=== PATIENT | female | born 1985 | race Caucasian/White ===

== ENCOUNTER 2023-08-25 12:13 | Outpatient (REF) | payer BC, SELFPAY ==
[2023-08-25 12:57] LABS: SARS-CoV-2 Ag NEGATIVE (NEGATIVE)
[2023-08-25 16:09] LABS: SARS-CoV-2 NAA DETECTED (NOT DETECTE)
== END 2023-08-25 12:14 | disposition home or self-care (01) ==
LOC: LAB 12:13
PROVIDERS: PCP Nurse Practitioner Family; Visit Provider Family Medicine
DX: J21.9 Acute bronchiolitis, unspecified (principal)
CPT/HCPCS: 87635; 87811

== ENCOUNTER 2023-09-22 15:02 | Outpatient (OUT) | payer BC, SELFPAY ==
--- NOTE | 2023-09-22 | US_ITS ---
Patient Name: SRINIVAS DAY MR#: [id number] : 1985 Exam Date: 09/22/2023 Ordering Doctor: ORLIN ROJAS CNP RADIOLOGY REPORT PROCEDURE: MM TOMOSYNTHESIS DIAGNOSTIC BI, 09/22/2023, 15:12 US BREAST BI LIMITED, 09/22/2023, 15:40 COMPARISON: None. INDICATIONS: breast lump N63.0 Calculator Name NCI Breast Cancer Risk Assessment Tool 5 Year Breast Cancer Risk 1.00% Lifetime Breast Cancer Risk 18.40% Personal Breast Cancer No Personal Ovarian Cancer No Treatments None Family Cancers Mother with breast cancer at age 59; Mother with lung cancer at age 61. LOCATION: [facility] BREAST COMPOSITION: Scattered areas fibroglandular density. FINDINGS: DIAGNOSTIC CATEGORY 4--SUSPICIOUS FOR MALIGNANCY. FINDING DOES NOT EXHIBIT CLASSIC FINDINGS OF BREAST CANCER: This exam includes additional mammographic views for implant evaluation and shows no visible implant abnormality. RIGHT BREAST: No significant suspicious finding. No mammographic or ultrasound abnormality to correspond to patient's palpable mass 12 o'clock position, mid breast. LEFT BREAST: No significant suspicious finding. No mammographic abnormality to correspond to the patient's palpable abnormality upper inner quadrant, mid breast. Ultrasound demonstrates at the 10 o'clock position adjacent to the implant capsule an oval well-circumscribed vascular heterogeneous mass measuring 0.8 x 0.3 x 0.8 cm. This lesion is indeterminate. Proximity to the implant precludes a core biopsy. Follow-up MRI is recommended, alternatively fine needle aspiration could be performed. RECOMMENDATIONS: BREAST MRI: BILATERAL BREASTS OR ULTRASOUND-GUIDED FINE NEEDLE ASPIRATION: LEFT BREAST PLEASE NOTE: A NORMAL MAMMOGRAM DOES NOT EXCLUDE THE POSSIBILITY OF BREAST CANCER. A CLINICALLY SUSPICIOUS PALPABLE LUMP SHOULD BE BIOPSIED. Dictated by: Inocencio Marie MD on 09/22/2023 at 16:05 Approved by: Inocencio Marie MD on 09/22/2023 at 16:09
--- NOTE | 2023-09-22 15:05 | MM_ITS ---
Patient Name: SRINIVAS DAY MR#: [id number] : 1985 Exam Date: 09/22/2023 Ordering Doctor: ORLIN ROJAS CNP RADIOLOGY REPORT PROCEDURE: MM TOMOSYNTHESIS DIAGNOSTIC BI, 09/22/2023, 15:12 US BREAST BI LIMITED, 09/22/2023, 15:40 COMPARISON: None. INDICATIONS: breast lump N63.0 Calculator Name NCI Breast Cancer Risk Assessment Tool 5 Year Breast Cancer Risk 1.00% Lifetime Breast Cancer Risk 18.40% Personal Breast Cancer No Personal Ovarian Cancer No Treatments None Family Cancers Mother with breast cancer at age 59; Mother with lung cancer at age 61. LOCATION: [facility] BREAST COMPOSITION: Scattered areas fibroglandular density. FINDINGS: DIAGNOSTIC CATEGORY 4--SUSPICIOUS FOR MALIGNANCY. FINDING DOES NOT EXHIBIT CLASSIC FINDINGS OF BREAST CANCER: This exam includes additional mammographic views for implant evaluation and shows no visible implant abnormality. RIGHT BREAST: No significant suspicious finding. No mammographic or ultrasound abnormality to correspond to patient's palpable mass 12 o'clock position, mid breast. LEFT BREAST: No significant suspicious finding. No mammographic abnormality to correspond to the patient's palpable abnormality upper inner quadrant, mid breast. Ultrasound demonstrates at the 10 o'clock position adjacent to the implant capsule an oval well-circumscribed vascular heterogeneous mass measuring 0.8 x 0.3 x 0.8 cm. This lesion is indeterminate. Proximity to the implant precludes a core biopsy. Follow-up MRI is recommended, alternatively fine needle aspiration could be performed. RECOMMENDATIONS: BREAST MRI: BILATERAL BREASTS OR ULTRASOUND-GUIDED FINE NEEDLE ASPIRATION: LEFT BREAST PLEASE NOTE: A NORMAL MAMMOGRAM DOES NOT EXCLUDE THE POSSIBILITY OF BREAST CANCER. A CLINICALLY SUSPICIOUS PALPABLE LUMP SHOULD BE BIOPSIED. Dictated by: Inocencio Marie MD on 09/22/2023 at 16:05 Approved by: Inocencio Marie MD on 09/22/2023 at 16:09
== END 2023-09-22 15:03 | disposition home or self-care (01) ==
LOC: MAMMO 15:02
PROVIDERS: PCP Nurse Practitioner Family; Visit Provider Nurse Practitioner Family
DX: N63.15 Unspecified lump in the right breast, overlapping quadrants (principal); N63.22 Unspecified lump in the left breast, upper inner quadrant; Z80.3 Family history of malignant neoplasm of breast; Z80.1 Family history of malignant neoplasm of trachea, bronchus and lung
CPT/HCPCS: 76642; 77066; G0279

== ENCOUNTER 2023-09-28 07:28 | Day surgery (SDC) | payer BC, SELFPAY ==
--- OUTSIDE RECORDS SUMMARY | 2023-09-28 07:31 | XMS_ITS | CCD ---
Author Name Unknown Address [address] [place] [address] Organization [facility] Care Team Providers Care Communications Station Manager Name Role Phone Waldrop, Juan R. Unavailable Unavailable Waldrop, Juan R. Unavailable Unavailable Waldrop, Juan R. Unavailable Unavailable NONE, XXXX Unavailable Unavailable Waldrop, Juan R. Unavailable Unavailable Waldrop, Juan R. Unavailable Unavailable Waldrop, Juan R. Unavailable Unavailable NONE, XXXX Unavailable Unavailable Waldrop, Juan R. Unavailable Unavailable Waldrop, Juan R. Unavailable Unavailable Waldrop, Juan R. Unavailable Unavailable NONE, XXXX Unavailable Unavailable Doreen Booker Unavailable Dawood Diaz Unavailable RITU ., DR GANNON Attending Unavailable HOY ., DR GANNON Admitting Unavailable HOY ., DR GANNON Consulting Unavailable BOB, ORLIN Primary Care Unavailable BOB, ORLIN Primary Care Unavailable KARASIK ., DR MOTA Admitting Unavailabl e KARASIK ., DR MOTA Consulting Unavailabl e KARASIK ., DR MOTA Attending Unavailabl e BOB, ORLIN Admitting Unavailable BOB, ORLIN Primary Care Unavailable BOB ORLIN Consulting Unavailable ORLIN ROJAS Attending Unavailable COLIN HDEZ Consulting Unavailable BOB ORLIN Attending Unavailable BOB, ORLIN Admitting Unavailable BOB, ORLIN Primary Care Unavailable BOB, ORLIN Consulting Unavailable Allergies Allergy Classification Reported Allergen(s) Allergy Type Date of Onset Reaction(s) Facility (1 source) ketamine; Translations: [ketamine] Drug Allergy [facility] Repository (1 source) Compazine Spansule; Translations: [Compazine Spansule] Propensity to adverse reactions (disorder) [facility] Repository (3 sources) Prochlorperazin e; Translations: [Compazine] Drug Allergy she has anger and axiety. [facility] Medications Current Medications Medication Drug Class(es) Dates Sig (Normalized) Sig (Original) amoxicillin 875 mg oral tablet (1 source) Penicillin-class Antibacterial Start: 09-11-20 22 take 1 tablet by mouth every twelve hours Amoxicillin 875 MG 1 tablet Orally every 12 hrs for 10 days Aug, Active Calcium + D 500-1000-40 MG-UNT-MCG (1 source) take 500-1000 tablets by mouth twice daily ibuprofen 600 mg oral tablet (1 source) Nonsteroidal Anti-inflammatory Drug take 1 tablet by mouth three times daily at mealtime as needed Ibuprofen 600 MG 1 tablet with food or milk as needed Orally Three times a day Active 1 ml medroxyPROGESTERone acetate 150 mg/ml prefilled syringe (1 source) Progestin Depo-Provera 150 MG/ML 1 mL Intramuscular Active methylPREDNISolone 4 mg oral tablet (1 source) Corticosteroid Start: 09-11-20 methylPREDNISolone 4 MG as directed Orally Once a day for 6 days Aug, Active SUMAtriptan 100 mg oral tablet (1 source) Serotonin-1b and Serotonin-1d Receptor Agonist take 1 tablet by mouth every two hours as needed, then take 1 tablet by mouth twice daily as needed Problems Active Problems Problem Classification Problem Date Documented Date Episodic/Chronic Chronic kidney disease (4 sources) Chronic kidney disease stage 3; Translations: [Chronic kidney disease, stage 3 unspecified] Chronic Immunizations and screening for infectious disease (2 sources) Contact with and (suspected) exposure to other viral communicable diseases; Translations: [Encounter for screening for human papillomavirus (HPV)] Onset: 01-13-2023 Episodic Other screening for suspected conditions (not mental disorders or infectious disease) (8 sources) Encounter for screening for malignant neoplasm of cervix; Translations: [Abnormal results of kidney function studies] Onset: 02-01-2022 Episodic Other upper respiratory infections (2 sources) Acute pharyngitis, unspecified; Translations: [Acute laryngitis] Episodic Otitis media and related conditions (1 source) Otitis media, unspecified, bilateral Episodic Past or Other Problems Problem Classification Problem Date Documented Da te Episodic/Chronic Cancer of kidney and renal pelvis (4 sources) Personal history of other malignant neoplasm of kidney; Translations: [PERS HX OTH MALIG NEOPLASM KIDNEY] Onset: 02-13-2022 Episodic Results Test Name Value Interpretation Reference Range Facility PAP ACOG PANEL 2: 30 to 65on 01-17-[address] [facility] Comment on above: Result Comment: Performed at: [facility] Performed By: #### [id number] #### [facility] [address] [place] [address] Dr. Debo Ruggiero Age Gdln ACOG Testing 30-[address] [facility] Comment on above: Performed By: #### [id number] #### [facility] [address] [address] [address] Debo Ruggiero DIAGNOSIS: Comment Normal [facility] Comment on above: Result Comment: NEGATIVE FOR INTRAEPITHE LIAL LESION OR MALIGNANCY. Performed at: [facility] Performed By: #### [id number] #### [facility] [address] [place] [address] Dr. Debo Ruggiero HPV Aptima Negative Normal Negative [facility] Comment on above: Result Comment: This nucleic acid amplif ication test detects fourteen high-risk HPV types (16,18,31,33,35,39,45,51,52,56,58,59,66,68) without differentiation. Performed at: =G Performed By: #### [id number] #### [facility] [address] [place] [address] Dr. Debo Ruggiero HPV Genotype Reflex Comment Normal [facility] Comment on above: Result Comment: Criteria not met, HPV Ge notype not performed. Performed at: [facility] Performed By: #### [id number] #### [facility] [address] [place] [address] Dr. Debo Ruggiero Methodology: Comment Normal [facility] Comment on above: Result Comment: This liquid based ThinPr ep(R) pap test was screened with the use of an image guided system. Performed at: [facility] Performed By: #### [id number] #### [facility] [address] [place] [address] Dr. Debo Ruggiero Note: Comment Normal [facility] Comment on above: Result Comment: The Pap smear is a scree patel test designed to aid in the detection of premalignant and malignant conditions of the uterine cervix. It is not a diagnostic procedure and should not be used as the sole means of detecting cervical cancer. Both false-positive and false-negative reports do occur. . Performed at: [facility] Performed By: #### [id number] #### [facility] [address] [place] [address] Dr. Debo Ruggiero Performed by: Comment Normal [facility] Comment on above: Result Comment: Sita Lemus, Cytotec hnologist (ASCP) Performed at: [facility] Performed By: #### [id number] #### [facility] [address] [place] [address] Dr. Debo Ruggiero Specimen adequacy: Comment [facility] Comment on above: Result Comment: Satisfactory for evaluat ion. No endocervical component is identified. Performed at: [facility] Performed By: #### [id number] #### [facility] [address] [place] [address] Dr. Debo Ruggiero COVID/FLU/RSV RT-PCRon 09-11 SARS-CoV-2 (COVID-19) RNA CAMILA+probe Ql (Unsp spec) Negative [facility] [place] Other COVID/FLU/RSV RT-PCR Negative [facility] [place] Other Quick Strepon 09-11-2022 S. pyogenes Org specific cx Ql (Throat) Negative [facility] [place] Other [facility] Strep [facility] [place] Other US KIDNEYS BLADDERon 022 US KIDNEYS BLADDER Ultrasound kidneys, bilateral HISTORY: History of malignant neoplasm of kidney COMPARISON: CT 03/25/2020 TECHNIQUE: Transabdominal ultrasound imaging of both kidneys was performed. FINDINGS: Both kidneys demonstrate normal echotexture and echogenicity. The right kidney measures 8.0 x 5.1 x 4.2 cm. There is no hydronephrosis of right kidney. The left kidney measures 10.3 x 5.2 x 4.9 cm. There is an anechoic structure exophytic at the lower pole measuring 1.2 x 0.9 x 0.8 cm compatible with a small cyst. No hydronephrosis of left kidney. The bladder is incompletely distended. Prevoid bladder volume is 108 cc. Bilateral ureteral jets are seen in bladder lumen. Postvoid volume is 10 cc. IMPRESSION: 1. Right kidney is measuring smaller than the left, although uncertain whether this is a true finding or due to angle of the ultrasound probe during imaging. No hydronephrosis on either side. 2. 1.2 cm exophytic left lower pole cyst. 3. Post void bladder volume of 10 cc, which correlates with a 9% postvoid bladder residual. No focal bladder abnormality with bilateral ureteral jets seen in bladder lumen. Electronically authenticated by: COLIN HDEZ Date: 2022-02-14 21:18 Normal [facility] PROF 14(COMP METB)on 022 Albumin [Mass/Vol] 4.0 g/dL Normal 3.4-5.0 [facility] Comment on above: Performed By: #### CMP #### [facility] [address] [place] [address] Dr. Debo Ruggiero Albumin/Globuli n [Mass ratio] 1.1 {ratio} Normal [facility] Comment on above: Performed By: #### CMP #### [facility] [address] [place] [address] Dr. Debo Ruggiero ALP [Catalytic activity/Vol] 65 U/L Normal 46-116 [facility] Comment on above: Performed By: #### CMP #### [facility] [address] [place] [address] Dr. Debo Ruggiero ALT [Catalytic activity/Vol] 19 U/L Normal 14-59 [facility] Comment on above: Performed By: #### CMP #### [facility] [address] [place] [address] Dr. Debo Ruggiero Anion gap [Moles/Vol] 12.6 mmol/L Normal [facility] Comment on above: Performed By: #### CMP #### [facility] [address] [place] [address] Dr. Debo Ruggiero AST [Catalytic activity/Vol] 15 U/L Normal 15-37 [facility] Comment on above: Performed By: #### CMP #### [facility] [address] [place] [address] Dr. Debo Ruggiero Bilirubin [Mass/Vol] 0.6 mg/dL Normal 0.2-1.[address] [facility] Comment on above: Performed By: #### CMP #### [facility] [address] [address] [address] Debo Ruggiero Calcium [Mass/Vol] 9.2 mg/dL Normal 8.5-10.[address] [facility] Comment on above: Performed By: #### CMP #### [facility] [address] [address] [address] Debo Ruggiero Chloride [Moles/Vol] 103 mmol/L Normal 98-107 [facility] Comment on above: Performed By: #### CMP #### [facility] [address] [address] [address] Debo Ruggiero CO2 [Moles/Vol] 29.1 mmol/L Normal 21.0-32.0 [facility] Comment on above: Performed By: #### CMP #### [facility] [address] [place] [address] Dr. Debo Ruggiero Creatinine [Mass/Vol] 1.18 mg/dL Critically high 0.55-1.[address] [facility] Comment on above: Performed By: #### CMP #### [facility] [address] [place] [address] Dr. Debo Ruggiero EGFR-AF CENTRAL AFRICAN >60 Normal >=60 [facility] Comment on above: Performed By: #### CMP #### [facility] [address] [place] [address] Dr. Debo Ruggiero EGFR-NON AF CENTRAL AFRICAN 52 mL/min/1.73m2 Critically low >=60 [facility] Comment on above: Performed By: #### CMP #### [facility] [address] [address] [address] Debo Ruggiero Globulin (S) [Mass/Vol] 3.8 g/dL Normal [facility] Comment on above: Performed By: #### CMP #### [facility] [address] [address] [address] Debo Ruggiero Glucose [Mass/Vol] 81 mg/dL Normal 74-106 [facility] Comment on above: Performed By: #### CMP #### [facility] [address] [address] [address] Debo Ruggiero Potassium [Moles/Vol] 4.7 mmol/L Normal 3.5-5.1 [facility] Comment on above: Performed By: #### CMP #### [facility] [address] [address] [address] Debo Ruggiero Protein [Mass/Vol] 7.8 g/dL Normal 6.4-8.2 [facility] Comment on above: Performed By: #### CMP #### [facility] [address] [address] [address] Debo Ruggiero Sodium [Moles/Vol] 140 mmol/L Normal 136-[address] [facility] Comment on above: Performed By: #### CMP #### [facility] [address] [address] [address] Debo Ruggiero Urea nitrogen [Mass/Vol] 19.0 mg/dL Critically high 7.0-18.[address] [facility] Comment on above: Performed By: #### CMP #### [facility] [address] [address] [address] Debo Ruggiero Urea nitrogen/Creati nine [Mass ratio] 16.1 mg/mg Normal [facility] Comment on above: Performed By: #### CMP #### [facility] [address] [address] [address] Debo Ruggiero PROF 14(COMP METB)on 022 Albumin [Mass/Vol] 4.1 g/dL Normal 3.4-5.[address] [facility] Comment on above: Performed By: #### CMP #### [facility] [address] [address] [address] Debo Ruggiero Albumin/Globuli n [Mass ratio] 1.2 {ratio} Normal [facility] Comment on above: Performed By: #### CMP #### [facility] [address] [address] [address] Debo Ruggiero ALP [Catalytic activity/Vol] 58 U/L Normal 46-[address] [facility] Comment on above: Performed By: #### CMP #### [facility] [address] [address] [address] Debo Ruggiero ALT [Catalytic activity/Vol] 19 U/L Normal 14-59 [facility] Comment on above: Performed By: #### CMP #### [facility] [address] [address] [address] Debo Ruggiero Anion gap [Moles/Vol] 11.7 mmol/L Normal [facility] Comment on above: Performed By: #### CMP #### [facility] [address] [address] [address] Debo Ruggiero AST [Catalytic activity/Vol] 15 U/L Normal 15-37 [facility] Comment on above: Performed By: #### CMP #### [facility] [address] [place] [address] Dr. Debo Ruggiero Bilirubin [Mass/Vol] 0.6 mg/dL Normal 0.2-1.[address] [facility] Comment on above: Performed By: #### CMP #### [facility] [address] [place] [address] Dr. Debo Ruggiero Calcium [Mass/Vol] 8.6 mg/dL Normal 8.5-10.1 [facility] Comment on above: Performed By: #### CMP #### [facility] [address] [place] [address] Dr. Debo Ruggiero Chloride [Moles/Vol] 106 mmol/L Normal 98-107 [facility] Comment on above: Performed By: #### CMP #### [facility] [address] [address] [address] Debo Ruggiero CO2 [Moles/Vol] 28.3 mmol/L Normal 21.0-32.0 [facility] Comment on above: Performed By: #### CMP #### [facility] [address] [place] [address] Dr. Debo Ruggiero Creatinine [Mass/Vol] 1.35 mg/dL Critically high 0.55-1.[address] [facility] Comment on above: Performed By: #### CMP #### [facility] [address] [address] [address] Debo Ruggiero EGFR-AF CENTRAL AFRICAN 53 mL/min/1.73m2 Critically low >=60 [facility] Comment on above: Performed By: #### CMP #### [facility] [address] [address] [address] Debo Ruggiero EGFR-NON AF CENTRAL AFRICAN 44 mL/min/1.73m2 Critically low >=60 [facility] Comment on above: Performed By: #### CMP #### [facility] [address] [address] [address] Debo Ruggiero Globulin (S) [Mass/Vol] 3.4 g/dL Normal [facility] Comment on above: Performed By: #### CMP #### [facility] [address] [place] [address] Dr. Debo Ruggiero Glucose [Mass/Vol] 82 mg/dL Normal 74-[address] [facility] Comment on above: Performed By: #### CMP #### [facility] [address] [place] [address] Dr. Debo Ruggiero Potassium [Moles/Vol] 4.0 mmol/L Normal 3.5-5.1 [facility] Comment on above: Performed By: #### CMP #### [facility] [address] [place] [address] Dr. Debo Ruggiero Protein [Mass/Vol] 7.5 g/dL Normal 6.4-8.2 [facility] Comment on above: Performed By: #### CMP #### [facility] [address] [place] [address] Dr. Debo Ruggiero Sodium [Moles/Vol] 142 mmol/L Normal 136-145 [facility] Comment on above: Performed By: #### CMP #### [facility] [address] [place] [address] Dr. Debo Ruggiero Urea nitrogen [Mass/Vol] 18.0 mg/dL Normal 7.0-18.[address] [facility] Comment on above: Performed By: #### CMP #### [facility] [address] [place] [address] Dr. Debo Ruggiero Urea nitrogen/Creati nine [Mass ratio] 13.3 mg/mg Normal [facility] Comment on above: Performed By: #### CMP #### [facility] [address] [address] [address] Debo Ruggiero Anesthesia Consultationon Anesthesia Consultation Patient: SRINIVAS JOLLY Age: 32 years Sex: Female : 1985 Associated Diagnoses: None Author: Carlos Juarez Jr., DO Postoperative Information Post Operative Note: Post Anesthesia Care Unit. Anesthetic utilized: General, Monitored anesthesia care. Health Status Allergies: Allergic Reactions (Selected)SevereKetamine- Rash and itching.Severity Not DocumentedCompazine Spansule- Anxiety. Current medications: (Selected) PrescriptionsPrescribedPercocet 325 mg-5 mg Tab: 1 tab(s), Oral, q4hr as needed for pain for 7 day(s), 12 tab(s), Refill(s) 0, Take one tab by mouth every four hours as needed for pain, [id number] MedicationsDocumentedRemeron 15 mg Tab: .25 tabe, Oral, Once a day (at bedtime), Insomnia Problem list: All ProblemsArthropathies / SNOMED CT 9086604771 / Confirmedarthritis of the backAsthma / SNOMED CT 605534919 / ConfirmedOvarian cyst / SNOMED CT 722534608 / ConfirmedEndometriosis / SNOMED CT 028783507 / ConfirmedPanic attack / SNOMED CT 483603430 / ConfirmedScoliosis / SNOMED CT 695999618 / Confirmed Physical Examination Intake and Output Denies significant n/v and is tolerating p.o. No qualifying data available Respiratory: Adequate air exchange with pentecostal of preoperative function.. Cardiovascular: Cardiovascular function is stable and has returned to preoperative levels.. Neurologic: Pt has returned to preoperative baseline.. Review / Management Condition: Stable. Assessment Anesthetic outcome No anesthetic complications noted. Plan Transfer/ Discharge: Patient can be discharged from PACU when criteria met. Condition good. Normal [facility] Coding Summary.on 10-19-2017 Coding Summary. CODING DATE: 018 FINAL [facility] STATUS: Home (Routine DC) PAYOR: Nemesio APC DESCRIPTION 5522 Level 2 Imaging without Contrast ADMIT DX: REASON FOR VISIT DX: M79.604 Pain in right leg FINAL DX: PRINCIPAL: M79.604 Pain in right leg SECONDARY: Z98.890 Other specified postprocedural states PYMT PROC APC STAT DESCRIPTION DOCTOR NAME DATE NOTE: The code number assigned matches the documented diagnosis and / or procedure in the patient's chart. However, the narrative phrase printed from the coding software may appear abbreviated, or result in slightly different terminology. Coded By: Kelsey Curtis Date Saved: 10/19/2017 10:[address] [facility] US LE Venous Duplex Righton 10-18-2017 US LE Venous Duplex Right Exam Date/Time:10/18/2017 18:02 ESTReason for Exam:S/P INCISIONAL HERNIA SURGERY // R/O DVTReportIMPRESSION: NO EVIDENCE OF VENOUS THROMBOSIS INVOLVING VISUALIZED DEEP VEINS OF THERIGHT LEG.CLINICAL HISTORY: S/P INCISIONAL HERNIA SURGERY // R/O DVT COMMENT: On the right, the greater saphenous vein, common femoral vein, deep femoralvein, femoral vein, and popliteal vein demonstrate spontaneous phasic venous flow,with augmentation, competence, non-pulsatility, and compressibility every 2 cm. Theright posterior tibial and peroneal veins of the deep venous system compress. Thecontralateral left common femoral vein demonstrates spontaneous phasic venous flow. FINAL REPORT Dictated: 10/18/2017 6:03 pm Riaz Resendez MD Signed (Electronic Signature): 10/18/2017 6:03 pm Signed by: Riaz Resendez MD Transcribed by: HONG Technologist: JAYLA Normal [facility] Coding Summary.on 10-17-2017 Coding Summary. CODING DATE: 018 FINAL [facility] STATUS: Home (Routine DC) PAYOR: Nemesio APC DESCRIPTION 5361 Level 1 Laparoscopy and Related Services ADMIT DX: REASON FOR VISIT DX: K43.2 Incisional hernia without obstruction or gangrene FINAL DX: PRINCIPAL: K43.0 Incisional hernia with obstruction, without gangrene SECONDARY: PYMT PROC APC STAT DESCRIPTION DOCTOR NAME DATE 70482 5361 J1 Repair recurrent Juan Waldrop MD 10/14/2017 incisional or ventral hernia; incarcerated or strangulated 39504 Implantation of mesh or Juan Waldrop MD 10/14/2017 other prosthesis for open incisional or ventral hernia repair or mesh for closure of debridement for necrotizing soft tissue infection (List separately in addition to code for the incisional or ventral hernia repair) 46114 Anesthesia for hernia Juan Waldrop MD 10/14/2017 repairs in upper abdomen; lumbar and ventral (incisional) hernias and/or wound dehiscence NOTE: The code number assigned matches the documented diagnosis and / or procedure in the patient's chart. However, the narrative phrase printed from the coding software may appear abbreviated, or result in slightly different terminology. Coded By: Yancy Skinner Date Saved: 10/17/2017 04:[address] [facility] Main OR Intraoperative Recor don 10-17-2017 Main OR Intraoperative Record IntraOp Document Type FT Summary Primary Physician: Juan Waldrop MD Finalized Date/Time: 10/17/17 13:38:27 Pt. Name: SRINIVAS JOLLY/Sex: 1985 Female Med Rec #: [id number] Physician: Juan Waldrop MD Financial #: [id number] Pt. Type: A Room/Bed: [place] [address] Admit/Disch: 10/14/17 09:21:00 - 10/14/17 16:00:00 Institution: Case Times FT Entry 1 Patient Times In Room 10/14/17 11:39:00 Out Room 10/14/17 12:57:00 Procedure Times Start 10/14/17 12:00:00 Stop 10/14/17 12:53:00 Anesthesia Times Start 10/14/17 11:39:00 Stop 10/14/17 12:57:00 Last Modified By: Ryanne Jackson CST 10/14/17 13:01:25 General Comments: 10/17/2017 Chart opened to review and send charges Jessica denise Case Attendance FT Entry 1 Entry 2 Entry 3 Case Attendee Fabiola Cooper MD, Juan Jenkins CST/, Flavia Role Performed Anesthesiologist Surgeon - Primary CYBER DEFENSE ANALYST/SA Flipping Machine Operator Time In 10/14/17 11:55:00 10/14/17 11:52:00 10/14/17 11:39:00 Time Out 10/14/17 12:57:00 10/14/17 12:55:00 10/14/17 12:57:00 Procedure INCISIONAL HERNIA INCISIONAL HERNIA INCISIONAL HERNIA REPAIR(.) REPAIR(.) REPAIR(.) Comments Dr. Juarez supervising Amanda Torres MS 4 LUNCH [id number] scrubbed for case Last Modified By: Rich RN, Leidy 10/14/17 Rich RN, Leidy 10/14/17 Rich RN, Leidy 10/14/17 13:01:34 13:01:34 13:01:34 Entry 4 Entry 5 Entry 6 Case Attendee Rich JIM, Leidy Boston RN, Shade Shoemaker CST Role Performed Light Oil Operator - Primary Light Oil Operator - Relief Scrub - Primary Time In 10/14/17 11:39:00 10/14/17 11:39:00 10/14/17 11:39:00 Time Out 10/14/17 12:57:00 10/14/17 12:30:00 10/14/17 12:57:00 Procedure INCISIONAL HERNIA INCISIONAL HERNIA INCISIONAL HERNIA REPAIR(.) REPAIR(.) REPAIR(.) Comments out for lunch [id number] LUNCH [id number] Last Modified By: Rich RN, Leidy 10/14/17 Rich RN, Leidy 10/14/17 Rich RN, Leidy 10/14/17 13:01:34 13:01:34 13:01:34 Entry 7 Entry 8 Case Attendee Larry Rivas DO, Gary Luo CST Role Performed Anesthesiologist of Scrub - Relief Record Time In 10/14/17 11:39:00 10/14/17 12:27:00 Time Out 10/14/17 11:56:00 10/14/17 12:57:00 Procedure INCISIONAL HERNIA INCISIONAL HERNIA REPAIR(.) REPAIR(.) Comments Last Modified By: Rich JIM, Leidy 10/14/17 Rich RN, Leidy 10/14/17 13:01:34 13:01:34 Perioperative Protocols FT Pre-Care Text: Implements protective measures prior to operative or invasive procedure, confirms identity before the operative or invasive procedure, verifies operative procedure, surgical site, and laterality Entry 1 Procedure(s) INCISIONAL HERNIA Patient Identity Birthday, ID Band REPAIR(.) Verified (select at Check, Patient least 2): Participation Consents / H and P Anesthesia Consent, Operative Site N/A Verified HandP, Surgery/Procedure Marking Verified Consent Surgical Site Yes Laterality Verified n/a Verified Procedure Verified Yes Correct Patient Yes Position Verified Availability Equipment, Medication Prep Dry Yes Verified (If Applicable) PreOp Antibiotic No Time Out [place] JARA, Juan Chin, Given Participants Gregory CYBER DEFENSE ANALYST/SA, Darvin Alejandro RN, Kelly Claire CYBER DEFENSE ANALYST, Bladimir Clement CAA, Fabiola José, Larry Rivas DO, Carlos Time Out Complete 10/14/17 11:56:00 Outcomes Met? Yes Last Modified By: Leidy Villanueva RN 10/14/17 12:05:10 Post-Care Text: The patient is free from signs and symptoms of injury caused by extraneous objects Allergy Information FT Pre-Care Text: Verifies allergies Entry 1 Allergies Reviewed? Yes Allergies Reviewed Self/Patient With Outcomes Met? Yes Last Modified By: Leidy Villanueva RN 10/14/17 11:11:04 Post-Care Text: The patient received appropriate medication(s) safely administered during the perioperative period Surgical Procedures FT Entry 1 Procedure Description Procedure INCISIONAL HERNIA REPAIR Modifiers . Surgeon Description INCISIONAL HERNIA REPAIR WITH MESH Primary Procedure Yes Primary Surgeon Juan Waldrop MD Start 10/14/17 12:00:00 Stop 10/14/17 12:53:00 Anesthesia Type General Surgical Service General Wound Class 1 - Clean Last Modified By: Leidy Villanueva RN 10/14/17 13:01:42 General Case Data FT Pre-Care Text: Classifies surgical wound, implements aseptic technique, initiates traffic control Entry 1 Case Information OR OR 2 FT Case Level Level 4 Wound Class 1 - Clean Specialty General ASA Class 2 Preop Diagnosis INCISIONAL HERNIA Postop Same As Preop Yes Postop Diagnosis INCISIONAL HERNIA Outcomes Met? Yes Last Modified By: Leidy Villanueva RN 10/14/17 12:04:29 Post-Care Text: The patient is free from signs and symptoms of infection Skin Assessment (Pre Procedure) FT Pre-Care Text: Implements protective measures to prevent skin/ tissue injury due to thermal or mechanical sources Evaluates for signs and symptoms of physical injury to skin and tissue Entry 1 Skin Integrity Intact, [place], Warm, and Skin Abnormality No Dry Outcomes Met? Yes Last Modified By: Leidy Villanueva RN 10/14/17 12:03:28 Post-Care Text: The patient is free from signs and symptoms of injury caused by extraneous objects Patient Positioning FT Pre-Care Text: Identifies physical alterations that require additional precautions for procedure-specific positioning, verifies presence of prosthetics or corrective devices, positions the patient, evaluates the patient for signs and symptoms of injury as a result of positioning Entry 1 Procedure INCISIONAL HERNIA Body Position Supine REPAIR(.) Feet Uncrossed? Yes Left Arm Position Extended on Padded Arm Board Right Arm Position Extended on Padded Arm Left Leg Position Extended Board Right Leg Position Extended Positioning Device Safety Strap, Pillow Under Head Large Press Points Checked Yes By Carlos Juarez Jr., DO, Timmons CYBER DEFENSE ANALYST/SA, Darvin Alejandro RN, Marce Melendez Outcomes Met? Yes Last Modified By: Leidy Villanueva RN 10/14/17 12:03:53 Post-Care Text: The patient is free from signs and symptoms of injury related to positioning Patient Care Devices FT Pre-Care Text: Implements protective measures to prevent skin/ tissue injury due to thermal or mechanical sources Entry 1 Entry 2 Entry 3 Equipment Type CAUTERY UNIT[F] MISTRAL FORCED AIR MONITOR CHARGE SURGERY WARMING SYSTEM UNIT[F] [F] Equipment Number boom or 2 m4 Equipment Setting Outcomes Met? Yes Yes Yes Last Modified By: Leidy Villanueva RN 10/14/17 Leidy Villanueva RN 10/14/17 Leidy Villanueva RN 10/14/17 11:38:05 11:38:05 11:38:05 Entry 4 Equipment Type VENA FLOW UNIT[F] Equipment Number Equipment Setting Outcomes Met? Yes Last Modified By: Leidy Villanueva RN 10/14/17 12:11:07 Post-Care Text: The patient is free from signs and symptoms of injury caused by extraneous objects General Comments: (vena unit applied in ASU as patient refused heparin, see EMAR) Transport To OR FT Pre-Care Text: Transports according to individual needs. Evaluates for signs and symptoms of skin and tissue injury as a result of transfer or transport Entry 1 Via Cart By Leidy Villanueva RN Safety Precautions Side Rails Up Outcomes Met? Yes Last Modified By: Leidy Villanueva RN 10/14/17 12:32:34 Post-Care Text: The patient is free from signs and symptoms of injury related to transfer/transport Cautery FT Pre-Care Text: Implements protective measures to prevent injury due to electrical sources, and evaluates for signs and symptoms of electrical injury Entry 1 ESU Identification ESU Settings Cut 0 Coag 35 ESU Grounding Pad Site Left Thigh Hair Removal Pad No Site Pre Pad Site Clear and Intact Post Pad Site Clear and Intact Condition Condition Grounding Pad Marce Boston RN Placed By Outcomes Met? Yes Last Modified By: Leidy Villanueva RN 10/14/17 12:32:53 Post-Care Text: The patient if free from signs and symptoms of electrical injury Counts Verification FT Pre-Care Text: Performs required counts Entry 1 Entry 2 Entry 3 Procedure(s) INCISIONAL HERNIA INCISIONAL HERNIA INCISIONAL HERNIA REPAIR(.) REPAIR(.) REPAIR(.) Type Initial Relief Final Items Instruments, Sponges, Sponges, Sharps Sponges, Sharps Sharps Status Correct Correct Correct Time 10/14/17 12:30:00 10/14/17 12:42:00 By Marce Boston RN, Jamison DENISE, Jamison Vega CST, Kelly Vega CST, Shade Villanueva RN, Leidy Swan RN Outcomes Met? Yes Yes Yes Last Modified By: Leidy Villanueva RN 10/14/17 Leidy Villanueva RN 10/14/17 Leidy Villanueva RN 10/14/17 12:43:59 12:43:59 12:43:59 Post-Care Text: The patient is free from signs and symptoms of injury caused by extraneous objects Skin Prep FT Pre-Care Text: Performs skin preparations Entry 1 Procedure INCISIONAL HERNIA Prep Area abdomen REPAIR(.) Prep Agents Chloraprep/Dry Prior to Draping Hair Removal Methods Not Indicated By Marce Boston RN Outcomes Met? Yes Last Modified By: Leidy Villanueva RN 10/14/17 11:56:55 Post-Care Text: The patient is free from signs and symptoms of infection Departure From OR FT Pre-Care Text: Transports according to individual needs. Evaluates for signs and symptoms of skin and tissue injury as a result of transfer or transport. Entry 1 Via Cart Safety Precautions Safety Strap, Side Rails Up PostOp Destination PACU Transported By Leidy Villanueva RN Patient Status Stable Skin. Condition Intact, [place], Warm, and Dry Airway Maintenance Oxygen in Use? Yes Airway Device Simple Mask Flow Rate 8 L/min Outcomes Met? Yes Last Modified By: Leidy Villanueva RN 10/14/17 12:08:48 Post-Care Text: The patient is free from signs and symptoms of injury related to transfer/transport General Comments: written and verbal report given to pacu nurse. Dressing/Packing FT Pre-Care Text: Administers care to wound sites Entry 1 Type Dressing Items DRESSING GAUZE 4 X 4 10'S [[id number]][F] Site and Details abdomen: mastisol, Outcomes Met? Yes steri-strips 1/4 , telfa, 4x4, foam tape Last Modified By: Leidy Villanueva RN 10/14/17 13:02:25 Post-Care Text: The patient is free from signs and symptoms of infection Medication Administration FT Pre-Care Text: Verifies allergies, administers prescribed medications and solutions, administers prescribed antibiotic therapy and immunizing agents as ordered, evaluates response to medications Administers prescribed medications and solutions Entry 1 Expiration Date Yes Outcomes Met? Yes Verified Last Modified By: Leidy Villanueva RN 10/14/17 11:38:41 Post-Care Text: The patient received appropriate medication(s) safely administered during the perioperative period For [place] please see scanned medication reconcilliation form for medications used at the field during the procedure. Implant Log FT Pre-Care Text: Records devices implanted during the operative or invasive procedure Entry 1 Implant/Explant Implant Implant Identification Description [employer] Lot Number [id number] NENANA W/STRAP [[id number]][F] Food Mixer FT-BARD/DAVOL Catalog ?# [id number] [F] Size 6.4CM Expiration Date 09/08/19 Usage Data Implant Site ABDOMEN Quantity 1 Outcomes Met? Yes Last Modified By: Leidy Villanueva RN 10/14/17 12:25:30 Post-Care Text: The patient is free from signs and symptoms of injury caused by extraneous objects Cultures and Specimens FT Pre-Care Text: Manages specimen handling and disposition Manages culture specimen collection Entry 1 Specimens Ordered Yes Specimen Disposition Designated OR Area Frozen Section Times Outcomes Met? Yes Last Modified By: Leidy Villanueva RN 10/14/17 12:06:42 Post-Care Text: The patient is free from signs and symptoms of injury caused by extraneous objects The patient is free from signs and symptoms of infection Temperature Control Entry 1 Temperature Control BLANKET MISTRAL AIR Quantity 1 Aid TORSO [[id number]][F] Fluid/[place] Unit Mistral warming system Setting high/43 degrees Body Site Upper anterior torso Last Modified By: Leidy Villanueva RN 10/14/17 11:38:51 Case Comments Finalized By: Ryanne Jackson CST Document Signatures Signed By: Ryanne Jackson CST 10/17/17 13:38 [facility] Operative Reporton 8 Operative Report Date of Surgery: 10/14/2017SURGEON: Juan Waldrop MD, FACSPREOPERATIVE DIAGNOSIS: Periumbilical incisional herniaPOSTOPERATIVE DIAGNOSIS: Periumbilical incision herniaOPERATION: Incisional hernia repair with meshANESTHESIA: General with localANESTHESIOLOGIST: Carlos Juarez Jr., D.O.INDICATIONS: This is a 32-year-old white female who presents with arecurrent periumbilical hernia. This was palpable just above theumbilicus. She is having increased discomfort with this. She states shehad an umbilical hernia repaired many years ago and noted that it hadrecurred shortly after the repair.PROCEDURE: The patient was brought to the Operating Room and under generalanesthesia, prepped and draped in the usual sterile manner with ChloraPrep.The skin was anesthetized with 0.5% Marcaine plain. The widened midlinescarred skin above the umbilicus was excised full-thickness elliptically.Dissection was carried out down to the fascia where a small incarceratedpreperitoneal segment of fat was noted protruding through a very small 2-3mm fascial defect. There was also a palpable umbilical defect. Theumbilicus was dissected off of the underlying fascia exposing an additionalfascial defect measuring approximately 1.5 cm in diameter. This wasconnected to the smaller more cephalad defect. The preperitoneal space wasthen dissected circumferentially to allow for placement of a 6.4 cmcomposite round mesh. Several peritoneal defects were closed with running4-0 Vicryl suture prior to placing the mesh in the preperitoneal space.This was secured with 0 Prolene suture at the 3 o'clock, 6 o'clock and 9o'clock positions. The fascia was then closed transversely with [id number] #1 Prolene sutures incorporating the underlying mesh in therepair. The umbilicus was then tacked with two 3-0 Vicryl sutures to theunderlying fascia. The subcutaneous layer was reapproximated in a verticalmanner with interrupted 3-0 Vicryl suture and the skin closed with a 4-0V-Loc subcuticular suture with Steri-Strips, gauze and tape dressingapplied. The patient tolerated the procedure well and was transferred tothe Recovery Room in stable condition.Juan Waldrop MD, FACSglsDictated: 10/14/2017 #[id number]: 10/16/2017 #[id number]: Juan Waldrop MD, FACS [facility] Comment on above: Result Comment: Electronically Signed By : [place] JARA, Juan Chin\.br\Date and Time Signed: 10/17/17 09:20 EST Anesthesia Consultationon Anesthesia Consultation Patient: SRINIVAS JOLLY Age: 32 years Sex: Female : 1985 Associated Diagnoses: None Author: Carlos Juarez Jr., DO Preoperative Information Anesthesia history: Patient History: Pt./ family denies any personal or family hx of problems/difficulties with anesthesia.. Re-eval prior to induction: Inital eval reviewed: No significant interval change, NPO 10 hours.. Review of Systems Constitutional: See nursing assessment.. Cardiovascular: Cardiac risk assessment performed. Pt. denies any significant change in their cv hx.. Respiratory: Pt. denies any signicant change in their respiratory status.. Neurologic: Pt. denies any acute neurological changes.. Health Status Allergies: Allergic Reactions (Selected)Severity Not DocumentedCompazine Spansule- Anxiety., Allergies (1) Active ReactionCompazine Spansule Anxiety Current medications: (Selected) Inpatient MedicationsOrderedLactated Ringers IV [facility] 1000 mL 1,000 mL: 1,000 mL, IV, 150 mL/hr, Routine, Start date 10/14/17 9:30:00 EST, 6.7 hour(s), Total volume (mL): 1,000Documented MedicationsDocumentedRemeron 15 mg Tab: .25 tabe, Oral, Once a day (at bedtime), Insomnia, Medications (1) ActiveScheduled: (0)Continuous: (1)Lactated Ringers 1,000 mL 1,000 mL, IV, 150 mL/hrPRN: (0) Problem list: All ProblemsArthropathies / SNOMED CT 0529927492 / Confirmedarthritis of the backAsthma / SNOMED CT 233062047 / ConfirmedOvarian cyst / SNOMED CT 028256974 / ConfirmedEndometriosis / SNOMED CT 010856217 / ConfirmedPanic attack / SNOMED CT 040982453 / ConfirmedScoliosis / SNOMED CT 434728400 / Confirmed, Active Problems (6)Arthropathies Asthma Endometriosis Ovarian cyst Panic attack Scoliosis Histories Past Medical History: No active or resolved past medical history items have been selected or recorded. Family History: No family history items have been selected or recorded. Procedure history: tubal ligation on 05/02/2015 at 30 Years.Open reversal of tubal ligation ([id number]) on 07/11/2009 at 24 Years.Breast augmentation ([id number]) on 05/02/2008 at 23 Years.Appendectomy ([id number]) on 10/17/2007 at 22 Years.tubal ligation on 09/08/2007 at 22 Years.LEEP procedure of cervix ([id number]) on 01/04/2005 at 19 Years.Repair of umbilical hernia ([id number]).Caesarean section ().Caesarean section ().Caesarean section ().Caesarean section ().Caesarean section ().Anaesthesia for radical surgery on accessory sinuses ([id number]). Social History Social & Psychosocial HabitsNo Data Available. Physical Examination Vital Signs 10/14/2017 09:38 EST Heart Rate Monitored 84 bpm Systolic Blood Pressure 125 mmHg Diastolic Blood Pressure 82 mmHg Mean Arterial Pressure, Monitered 96 mmHg 10/14/2017 09:38 EST Blood Pressure Location Left arm 10/14/2017 09:37 EST Heart Rate Monitored 83 bpm SpO2 100 % 10/14/2017 09:37 EST Temperature Oral 36.8 DegC 10/14/2017 09:37 EST Apical Heart Rate 80 bpm 10/14/2017 09:36 EST Respiratory Rate 18 br/min 10/14/2017 09:36 EST Systolic Blood Pressure 117 mmHg Diastolic Blood Pressure 72 mmHg Blood Pressure Location Right arm Mean Arterial Pressure, Monitered 87 mmHg Vitals Signs (last 24 hrs) Last Charted Minimum MaximumTemp 36.8 (OCT 14 09:37) 36.8 (OCT 14 09:37) 36.8 (OCT 14 09:37)Heart Rate 84 (OCT 14 09:38) 80 (OCT 14 09:37) 84 (OCT 14 09:38)Resp Rate 18 (OCT 14 09:36) 18 (OCT 14 09:36) 18 (OCT 14 09:36)SBP 125 (OCT 14 09:38) 117 (OCT 14 09:36) 125 (OCT 14 09:38)DBP 82 (OCT 14 09:38) 72 (OCT 14 09:36) 82 (OCT 14 09:38)MAP 96 (OCT 14 09:38) 87 (OCT 14 09:36) 96 (OCT 14 09:38)SpO2 100 (OCT 14 09:37) 100 (OCT 14 09:37) 100 (OCT 14 09:37) Pain assessment: Pain Assessment 10/14/2017 09:36 EST Preliminary Pain Scale 0 . Airway: Normal oral/pharyngeal anatomy.. Respiratory: Adequate air exchange.. Cardiovascular: Adequate perfusion and function. Review / Management Results review: No qualifying data available. Plan [place] [employer] Anesthesiologists (ASA) physical status classification: Class II. Anesthetic Preoperative Plan Anesthesia: General. . Anesthetic plan, risks, benefits, and alternatives discussed with the patient and/or family. Pt. and/or family present and agree to proceed as planned.. [facility] Inpatient Patient Summaryon 10-14-2017 Inpatient [facility] Dis[facility] InstructionsPERSON INFORMATION Name: SRINIVAS JOLLY PHYSICIANS Admitting Physician: Juan Waldrop MDAttending Physician: Juan Waldrop MD PCP: NONE, XXXXDischarge Diagnosis: Incisional hernia Comment: PATIENT EDUCATION INFORMATIONInstructions:[place] - Post Op Instructions (CUSTOM)Medication Leaflets:Follow up:With: Address: When: Juan Waldrop [address], [address] [place] [id number] Business (1) Within 7 to 10 days Comments: Call for any problems. Call for followup appointment MEDICATION LISTFill New Prescriptions:acetaminophen-oxyc odone (Percocet 325 mg-5 mg Tab) 1 tab(s) By Mouth every 4 hours 7 day(s) as needed for as needed for pain Take one tab by mouth every four hours as needed for painComment: [facility] Main OR PACU I [facility] Main OR PACU I Record PACU Phase I Document Type FT Summary Primary Physician: Juan Waldrop MD Finalized Date/Time: 10/14/17 14:36:49 Pt. Name: SRINIVAS JOLLY/Sex: 1985 Female Med Rec #: [id number] Physician: Juan Waldrop MD Financial #: [id number] Pt. Type: A Room/Bed: AS02/ Admit/Disch: 10/14/17 09:21:46 - Institution: Case Times PACU I FT Pre-Care Text: Identifies barriers to communication and implements measures to provide psychological support Develops individualized plan of care, and ensures continuity of care Maintains patient's dignity and privacy, and maintains patient confidentiality Identifies and reports philosophical, cultural, and spiritual beliefs and values Identifies individual values and wishes concerning care Implements aseptic technique, and administers prescribed antibiotic therapy and immunizing agents as ordered Evaluates postoperative tissue perfusion Implements thermoregulation measures, and monitors body temperature Evaluates postoperative respiratory status Evaluates postoperative cardiac status Evaluates postoperative neurological status Assesses pain control, collaborated in initiating patient-controlled analgesia and implements alternative methods of pain control Verifies allergies, administers prescribed medications and solutions, evaluates response to medications Entry 1 In PACU I 10/14/17 12:58:00 Discharge from PACU 10/14/17 14:20:00 I Outcomes Met? Yes Last Modified By: Hiwot Silver RN 10/14/17 14:36:29 Post-Care Text: The patient demonstrates knowledge of the expected response to the operative or invasive procedure The patient's care is consistent with the individualized perioperative plan of care The patient's right to privacy is maintained The patient's value system, lifestyle, ethnicity, and culture are considered, respected, and incorporated into the perioperative plan of care The patient participates in decisions affecting his or her perioperative plan of care The patient is free from signs and symptoms of infection The patient has wound/tissue perfusion consistent with or improved from baseline levels established preoperatively The patient is at or returning to normothermia at the conclusion of the immediate postoperative period The patient's respiratory function is consistent with or improved from baseline levels established preoperatively The patient's cardiovascular status is consistent with or improved from baseline levels established preoperatively The patient's cardiovascular status is consistent with or improved from baseline levels established preoperatively The patient demonstrates and/or reports adequate pain control throughout the perioperative period The patient received appropriate medication(s), safely administered during the perioperative period Acuity Level PACU I FT Entry 1 Start Time 10/14/17 12:58:00 Stop Time 10/14/17 14:20:00 Acuity Level Acuity Level I Last Modified By: Hiwot Silver RN 10/14/17 14:36:45 Finalized By: Hiwot Silver RN Document Signatures Signed By: Hiwot Silver RN 10/14/17 14:36 Normal [facility] Main OR PACU II [facility] Main OR PACU II Record PACU Phase II Document Type FT Summary Primary Physician: Juan Waldrop MD Finalized Date/Time: 10/14/17 19:41:49 Pt. Name: SRINIVAS JOLLY/Sex: 1985 Female Med Rec #: [id number] Physician: Juan Waldrop MD Financial #: [id number] Pt. Type: A Room/Bed: AS02/ Admit/Disch: 10/14/17 09:21:46 - Institution: Case Times PACU II FT Pre-Care Text: Identifies barriers to communication and implements measures to provide psychological support and determines knowledge level Develops individualized plan of care, and ensures continuity of care Maintains patient's dignity and privacy, and maintains patient confidentiality Identifies and reports philosophical, cultural, and spiritual beliefs and values Identifies individual values and wishes concerning care administers prescribed antibiotic therapy and immunizing agents as ordered, Evaluates postoperative tissue perfusion Implements thermoregulation measures, and monitors body temperature Evaluates postoperative respiratory status Evaluates postoperative cardiac status Evaluates postoperative neurological status Assesses pain control, collaborated in initiating patient-controlled analgesia and implements alternative methods of pain control Verifies allergies, administers prescribed medications and solutions, evaluates response to medications Entry 1 In PACU II 10/14/17 14:25:00 Discharge from PACU 10/14/17 16:00:00 II Outcomes Met? Yes Last Modified By: Era Ingram RN 10/14/17 19:41:46 Post-Care Text: The patient demonstrates knowledge of the expected response to the operative or invasive procedure The patient's care is consistent with the individualized perioperative plan of care The patient's right to privacy is maintained The patient's value system, lifestyle, ethnicity, and culture are considered, respected, and incorporated into the perioperative plan of care The patient participates in decisions affecting his or her perioperative plan of care. The patient is free from signs and symptoms of infection The patient has wound/tissue perfusion consistent with or improved from baseline levels established preoperatively The patient is at or returning to normothermia at the conclusion of the immediate postoperative period The patient's respiratory function is consistent with or improved from baseline levels established preoperatively The patient's cardiovascular status is consistent with or improved from baseline levels established preoperatively The patient's neurological status is consistent with or improved from baseline levels established preoperatively The patient demonstrates and/or reports adequate pain control throughout the perioperative period The patient received appropriate medication(s), safely administered during the perioperative period Finalized By: Era Ingram RN Document Signatures Signed By: Era Ingram RN 10/14/17 19:41 Normal [facility] Main OR Preoperative Recordo n 10-14-2017 Main OR Preoperative Record PreOp Document Type FT Summary Primary Physician: Juan Waldrop MD Finalized Date/Time: 10/14/17 12:04:04 Pt. Name: SRINIVAS JOLLY/Sex: 1985 Female Med Rec #: [id number] Physician: Juan Waldrop MD Financial #: [id number] Pt. Type: A Room/Bed: AS02/ Admit/Disch: 02/02/18 09:21:46 - Institution: Case Times PreOp FT Pre-Care Text: Verifies consent for planned procedure, identifies individual values and wishes concerning care, includes family members in perioperative teaching Entry 1 Patient Times. In Pre Surgery 10/14/17 09:25:00 Out Pre Surgery 10/14/17 11:37:00 Outcomes Met? Yes Last Modified By: Leidy Villanueva RN 10/14/17 12:04:02 Post-Care Text: The patient participates in decisions affecting his or her perioperative plan of care Finalized By: Leidy Villanueva RN Document Signatures Signed By: Leidy Villanueva RN 10/14/17 12:04 [facility] Patient Education - Texton 0 10-14-2017 Patient Education - Text Patient Education Materials Follows:[place] MD, FACSPOST OPERATIVE INSTRUCTIONSRegardless of how big or small the surgery you have had, your body and the wound(s) require time to heal. Please use common sense and limit your activity accordingly. If you are in doubt about a certain activity or it causes pain, DON?T DO IT, and ask your doctor about it at your next office visit.Keep the wound dry and covered for ___48 hours. You may then remove the bandage and shower. Pat the area dry and either leave the wound open to air, or re-cover it with a dry clean gauze pad. You may notice a small amount of blood or drainage on the dressing, which is normal. If there is continuous bleeding, however, or soaking of the bandage with blood or fluid, call your surgeon.Leave any Steri-strips (little white tapes) on the wound until seen in the office. Do not soak the wound in the tub or swim until given the okay by your surgeon to do so. If you have a drain in the wound, do not shower or get the wound wet. Do your best to keep the wound covered with a dry clean bandage.If you develop a fever and/or the wound becomes increasingly tender, red or drains any fluid, you may have an infection. In that case, call your surgeon.You may take Acetaminophen/Tylenol (up to 1000 mg) or Ibuprofen (Advil, Motrin) (up to 600 mg), for mild to moderate pain every six hours as needed. For more severe pain, you may have been given a prescription for Percocet or Vicodin. These all have Acetaminophen in them, so don?t take long with additional Acetaminophen/Tylenol. Juan Waldrop MD Page 2POST OPERATIVE INSTRUCTIONSIf you have had hernia surgery, expect some bruising and swelling of the incisional area .. Rest and put your feet up for the first few days. Ice packs to the incisional area may be helpful, too. Increase your activity very gradually. It may take 3-4 weeks to be back to full activity.Wound healing actually continues for many months. At first, the scar is often quite red. You may also notice a bump or ridge under the incision. This is normal and will go away with time. You may also have some numbness or extra/sensitivity around the incision, which should also go away with time. For the least amount of eventual scarring of the incisional area, be careful about sun exposure to the area for 6-12 months. You may be in the sun, just try to remember to apply sunscreen over the scar.Call the office to make a post-operative appointment for ___7-10 days If you have any questions or problems prior to being seen in the office, please call. Your surgeon can be reached by calling:Hospital: or (ask the red mud thickener operator for your surgeon)Office: Reviewed: 12-18Revised: 04-[address] [facility] Progress Note-Physicianon Progress Note-Physician Patient: SRINIVAS JOLLY Age: 32 years Sex: Female : 1985 Associated Diagnoses: None Author: Juan Waldrop MD Postoperative Information Date/ Time: 10/14/17 13:03:00 Preoperative Diagnosis: Incisional hernia ([id number] K43.2, Discharge, Medical). Postoperative Diagnosis: same. Performed by: Juan Waldrop MD. Specimens Removed: hernia contents. Estimated Blood Loss: 2 ml. Complications: None. Incisional hernia repair with mesh Normal [facility] Comment on above: Result Comment: Electronically Signed By : Juan Waldrop MD\.br\Date and Time Signed: 10/14/17 13:05 EST Progress Note-Physician Patient: SRINIVAS JOLLY Age: 32 years Sex: Female : 1985 Associated Diagnoses: None Author: Juan Waldrop MD Basic Information No change in H&P Normal [facility] Comment on above: Result Comment: Electronically Signed By : Juan Waldrop MD.br\Date and Time Signed: 10/14/17 11:28 EST Coding Summary.on 10-12-2017 Coding Summary. CODING DATE: 018 FINAL [facility] STATUS: Home (Routine DC) PAYOR: [place] ADMIT DX: REASON FOR VISIT DX: Z01.818 Encounter for other preprocedural examination FINAL DX: PRINCIPAL: Z01.818 Encounter for other preprocedural examination SECONDARY: PROCEDURES DOCTOR NAME DATE NOTE: The code number assigned matches the documented diagnosis and / or procedure in the patient's chart. However, the narrative phrase printed from the coding software may appear abbreviated, or result in slightly different terminology. Coded By: Kelsey Curtis Date Saved: 10/12/2017 11:46 am Normal [facility] CBC w/Indiceson 10-11-2017 Erythrocyte distribution width Auto Ratio (RBC) 13.3 % Normal 10.9-14.2 [facility] Comment on above: Performed By: #### [id number] ####[facility] [id number] [place] [address] Erythrocytes (RBC) 4.6 E12/L Normal 4.3-5.9 [facility] Comment on above: Performed By: #### [id number] ####[facility] [id number] [place] [address] Hematocrit (HCT) 41.6 % Normal 34.0-46.0 [facility] Comment on above: Performed By: #### [id number] ####[facility] [id number] [place] [address] Hemoglobin mass conc (Bld) 14.7 g/dL Normal 12.0-16.0 [facility] Comment on above: Performed By: #### [id number] ####[address] [address] MCH 32.0 pg Normal 27.0-34.0 [facility] Comment on above: Performed By: #### [id number] ####[address] [address] MCHC mass conc (RBC) 35.4 g/dL Normal 31.4-39.3 [facility] Comment on above: Performed By: #### [id number] ####[address] [address] MCV 90.3 fL Normal 80.0-100.0 [facility] Comment on above: Performed By: #### [id number] ####[address] [address] Platelet mean volume (PMV) 9.0 fL Normal 6.4-10.8 [facility] Comment on above: Performed By: #### [id number] ####[address] [address] Platelets 198.0 E9/L Normal 150.0-500. 0 [facility] Comment on above: Performed By: #### [id number] ####[address] [address] WBC (Leukocytes) 7.3 E9/L Normal 4.0-11.0 [facility] Comment on above: Performed By: #### [id number] ####[address] [address] Vital Signs Date Time Vital Sign Value Performing Clinician Facility 01-04-2023 17:00-0400 Body height 155.57 cm Dawood Diaz Other [facility] Other 01-04-2023 17:00-0400 Body mass index (BMI) [Ratio] 21.66 kg/m2 Dawood Diaz Other [facility] Other 01-04-2023 17:00-0400 Body temperature 98.1 [degF] Dawood Diaz Other [facility] Other 01-04-2023 17:00-0400 Body weight 52.44 kg Dawood Diaz Other [facility] Other 01-04-2023 17:00-0400 Diastolic blood pressure 72 mm[Hg] Dawood Diaz Other [facility] Other 01-04-2023 17:00-0400 Respiratory rate 18 /min Dawood Diaz Other [facility] Other 01-04-2023 17:00-0400 SaO2% (BldA) [Mass fraction] 98 % Dawood Diaz Other [facility] Other 01-04-2023 17:00-0400 Systolic blood pressure 110 mm[Hg] Dawood Diaz Other [facility] Other 09-11-2022 13:30-0500 Body height 155.57 cm Doreen Ade Other [facility] Other 09-11-2022 13:30-0500 Body mass index (BMI) [Ratio] 21.44 kg/m2 Doreen Ade Other [facility] Other 09-11-2022 13:30-0500 Body temperature 99.2 [degF] Doreen Ade Other [facility] Other 09-11-2022 13:30-0500 Body weight 51.89 kg Doreen Booker Other [facility] Other 09-11-2022 13:30-0500 Diastolic blood pressure 69 mm[Hg] Doreen Ortizault Other [facility] Other 09-11-2022 13:30-0500 Respiratory rate 18 /min Doreen Ortizault Other [facility] Other 09-11-2022 13:30-0500 SaO2% (BldA) [Mass fraction] 98 % Doreen Booker Other [facility] Other 09-11-2022 13:30-0500 Systolic blood pressure 113 mm[Hg] Doreen Ortizault Other [facility] Other Encounters Encounter Date Encounter Type Care Provider Facility Start: 01-07-2023 End: 01-07-2023 ambulatory ORLIN ROJAS Facility:[facility] Start: 01-04-2023 End: 01-04-2023 ambulatory Dawood Pappass Other [facility] Other Start: 01-04-2023 Office outpatient ne w 30 minutes Aziz Bakhous [facility] Start: 09-11-2022 End: 09-11-2022 ambulatory Doreen Ade Other [facility] Other Start: 09-11-2022 Office outpatient ne w 20 minutes Doreen Booker [facility] Start: 02-13-2022 End: 02-14-2022 ambulatory ORLIN ROJAS Facility:[facility] Start: 02-01-2022 End: 02-02-2022 ambulatory ORLIN ROJAS Facility:[facility] Start: 01-25-2022 End: 01-26-[address] JAGDEEP CHANEY . Facility: Start: 10-18-2017 End: 10-19-2017 Ambulatory Juan Waldrop Facility:[facility] Start: 10-14-2017 End: 10-14-2017 Ambulatory Juan Waldrop Facility:[facility] Start: 10-11-2017 End: 10-12-2017 Ambulatory Juan TraceyVianey Palma Facility:[facility] Payers Date Payer Category Payer Unknown 1985 Unknown [id number] [id number] [id number] 1985 Unknown [id number] 2.16.84 [id number] 1985 Unknown [id number] 2.16.84 [id number] 1985 Unknown [id number] 2.16.84 [id number] 1960 Rust [id number] 1960 Medicaid [id number] Social History Date Type Detail Facility Unknown if ever smoked [facility] Other Sex Assigned At Sex Assigned At Bir th [facility] Other Evaluation note 01-04-2023 Note Date & Type Note Facility 01-04-2023 Evaluation note Encounter Date Diagnosis Assessment Notes Dec, Chronic kidney disease, stage II (mild) (ICD-10 - N18.2) Patient has mild CKD probably from history of NSAID use. I will check UA along with protein to creatinine ratio. If patient has proteinuria and/or hematuria and I will expand work-up Blood pressure is well controlled. No fluid overload. I advised the patient to stay away from NSAIDs completely and to give herself well-hydrated. I will follow-up with the patient in 4 months Lab as above prior to next visit [facility] Other Evaluation note 09-11-2022 Note Date & Type Note Facility 09-11-2022 Evaluation note Encounter Date Diagnosis Assessment Notes Aug, Sore throat (ICD-10 - J02.9) Aug, Bilateral acute otitis media (ICD-10 - H66.93) Ear infections are often a secondary infection caused from an URI, the flu or allergies. Take medication as directed. Complete all doses, even if you feel better. Tylenol or ibuprofen can help with pain. Warm pack to area for comfort helps as well. Follow up with primary care provider if no improvement of symptoms., Middle ear infection: adult home care material was printed Aug, Exposure to COVID-19 virus (ICD-10 - Z20.828) Aug, Laryngitis (ICD-10 - J04.0) Symptoms of laryngitis is caused by viruses. Salt water gargles may help with discomfort. Take medications as directed. Cool mist humidifier, steaming up bathroom with shower may help with symptom relief. Follow up with primary care provider if no improvement of symptoms [facility] Other History general Narrative - Reported Note Date & Type Note Facility History general Narrative - Reported Type Medical History Endometriosis Medical History Anxiety Medical History Scoliosis Medical History OCD (obsessive compulsive disord er) Medical History Ovarian cyst Medical History ASTHMA Medical History ARTHRITIS Medical History ACUTE RENAL FAILURE STAGE 3 A Surgical History tubal ligation Surgical History C section X5 Surgical History appendectomy Surgical History tonsillectomy and adenoidectomy Surgical History PE tubes Surgical History sinus surgery Surgical History breast augmentation Surgical History Uterine ablation 08/29/18 Hospitalization History see above Hospitalization History placental abruption [facility] Other History general Narrative - Reported Note Date & Type Note Facility History general Narrative - Reported Type Medical History Endometriosis Medical History Anxiety Medical History Scoliosis Medical History OCD (obsessive compulsive disord er) Medical History Ovarian cyst Medical History ASTHMA Medical History ARTHRITIS Medical History ACUTE RENAL FAILURE STAGE 3 A Medical History MIGRAINES Surgical History tubal ligation Surgical History C section X5 Surgical History appendectomy Surgical History tonsillectomy and adenoidectomy Surgical History PE tubes Surgical History sinus surgery Surgical History breast augmentation Surgical History Uterine ablation 08/29/18 Hospitalization History see above Hospitalization History placental abruption [facility] Other Summary Purpose Family History No Family History Records FoundNo Family History Records Found Advance Directives No Advanced Directives Records FoundNo Advanced Directives Records Found Additional Source Comments INFORMATION SOURCE (unrecogn ized section and content) DATE CREATED AUTHOR 03/06/2018 Chi Nevarez [facility] DATE CREATED AUTHOR AUTHOR'S MARIAELENA ATIONA 01/18/2023 [facility] REASON FOR VISIT (unrecogniz ed section and content) SORE THROAT B/A H/ARENAL CKD 3 FOR RECORDS PERTAINING TO PATIENTS WHO ARE OR HAVE BEEN ENROLLED IN A CHEMICAL DEPENDENCY/SUBSTANCEABUSE PROGRAM, SOME INFORMATION MAY BE OMITTED. This clinical summary was aggregated from multiple sources. Caution should be exercised in using it in the provision of clinical care. This summary normalizes information from multiple sources, and as a consequence, information in this document may materially change the coding, format and clinical context of patient data. In addition, data may be omitted in some cases. CLINICAL DECISIONS SHOULD BE BASED ON THE PRIMARY CLINICAL RECORDS. [employer] provides no warranty or guarantee of the accuracy or completeness of information in this document.
--- NOTE | 2023-09-28 07:32 | US_ITS ---
[address] [address] Patient Name: SRINIVAS DAY MRN: [id number] date: 1985 Sex: F Assigned Patient Location: US Current Patient Location: US Accession/Order Number: [id number] Exam Date: 09/28/2023 07:33 Report Date: 09/28/2023 08:50 At the request of: ORLIN ROJAS Procedure: US biopsy FNA EXAMINATION: US biopsy FNA HISTORY: Abnormal Mammogram COMPARISON: No relevant comparison available. TECHNIQUE: After obtaining informed consent, an ultrasound-guided biopsy was performed in the usual sterile manner. FINDINGS: IMAGING: Ultrasound BIOPSY NEEDLE: 25-gauge 2 inch SPECIMEN TYPE, #, LOCATION: 3 fine-needle aspirates 7 mm 10:00 oval mass adjacent to the breast implant MEDICATION: 3 mL 1% buffered lidocaine COMPLICATIONS: None. LABORATORY: Pending pathology OTHER: Negative. US/US biopsy FNA IMPRESSION: Uneventful ultrasound guided biopsy. The patient was instructed to obtain follow up care and biopsy results from the referring physician. Electronically authenticated by: ROYA MOSS Date: 09/28/2023 08:50
[2023-09-28 07:40] VITALS: BP 101/79; PULSE 87; O2SAT 99
[2023-09-28] MEDS: LIDOCAINE HCL 10 ML, SODIUM BICARBONATE 1 MEQ INJ (08:25)
--- NOTE | 2023-09-28 09:23 | SUR.PREOP ---
09/23/23 Instructed pt on date, time, procedure, and prep. Pt voiced concerns with needles and anxiety. Vika Perez has already ordered Valium prebiopsy to be taken . 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
--- NOTE | 2023-09-28 09:30 | SUR.PREOP ---
0845 Pt sitting on side of bed and became dizzy. Pt laid flat supine for 7 minutes and symptoms resolved. 0900 Pt gait steady during d/c. Sig other and I CGA with pt during ambulation. Pt denies any dizziness.
== END 2023-09-28 09:00 | disposition home or self-care (01) ==
LOC: US 07:28
PROVIDERS: Radiology Diagnostic Radiology; PCP Nurse Practitioner Family; Visit Provider Nurse Practitioner Family
DX: D24.2 Benign neoplasm of left breast (principal)
CPT/HCPCS: 10005; 88173; 88305

== ENCOUNTER 2024-05-29 16:44 | Outpatient (OUT) | payer BC, SELFPAY ==
[2024-05-29 17:14] LABS: Bilirubin Urine NEGATIVE (NEGATIVE); Blood Urine NEGATIVE (NEGATIVE); Clarity Urine CLEAR (CLEAR); Color Urine LT. YELLOW (YELLOW); Glucose Urine UA NEGATIVE (NEGATIVE); Ketones Urine NEGATIVE (NEGATIVE); Leukocyte Esterase Urine NEGATIVE (NEGATIVE); Nitrite Urine NEGATIVE (NEGATIVE); Protein Urine NEGATIVE (NEG/TRACE); Specific Gravity Urine 1.025 (1.005-1.025); Urobilinogen Urine 0.2 EU/dL (0.2-1.0); pH Urine 6.5 (5.0-9.0)
[2024-05-29 17:46] LABS: Alanine Aminotransferase 16 U/L (14-59); Albumin Globulin Ratio 1.1; Albumin Level 3.9 g/dL (3.4-5.0); Alkaline Phosphatase 65 U/L (46-116); Anion Gap 8.3; Aspartate Amino Transferase 15 U/L (15-37); BUN Creatinine Ratio 13.5; Bilirubin Total 0.5 mg/dL (0.2-1.0); Calcium 8.9 mg/dL (8.5-10.1); Carbon Dioxide 30.3 mmol/L (21.0-32.0); Chloride 103 mmol/L (98-107); Estimated GFR (African America 57 (>=60); Estimated GFR (Non-African Ame 47 (>=60); Globulin 3.6 g/dL; Glucose 84 mg/dL (74-106); Potassium 3.6 mmol/L (3.5-5.1); Sodium 138 mmol/L (136-145); Total Protein 7.5 g/dL (6.4-8.2)
[2024-05-29 18:28] LABS: Bacteria Urine MODERATE #/HPF (NONE SEEN); Mucus Urine SMALL (NONE SEEN); RBC Urine NONE SEEN #/HPF (0-2); Squamous Epithelial Cell Urine RARE #/LPF (NONE/RARE); WBC Urine NONE SEEN #/HPF (NONE SEEN)
[2024-05-29 18:29] LABS: Cast Seen? NONE SEEN #/LPF (NONE SEEN); Crystals Seen? None Seen #/HPF (None Seen); Urine Culture Indicated ALREADY ORDERED
== END 2024-05-29 16:45 | disposition home or self-care (01) ==
PROVIDERS: PCP Nurse Practitioner Family; Visit Provider Nurse Practitioner Family
DX: R10.9 Unspecified abdominal pain (principal)
CPT/HCPCS: 36415; 80053; 81001; 87086

== ENCOUNTER 2024-09-18 16:05 | Outpatient (OUT) | payer BC, SELFPAY ==
--- NOTE | 2024-09-18 16:18 | US_ITS ---
The [address] [address] Patient Name: SRINIVAS DAY MRN: [id number] date: 1985 Sex: F Assigned Patient Location: Current Patient Location: US Accession/Order Number: [id number] Exam Date: 09/18/2024 16:26 Report Date: 09/18/2024 20:38 At the request of: ORLIN ROJAS Procedure: US renal bladder EXAM: US renal bladder HISTORY: FLANK PAIN R10.9 COMPARISON: None. TECHNIQUE: Multiple sonographic images of the kidneys and urinary bladder were obtained, supplemented with Doppler. FINDINGS: The right kidney measures 9.0 x 4.3 x 3.9 cm, with the cortical thickness of 10 mm. A small cyst is seen along the inferior aspect measuring 0.9 x 0.9 x 0.8 cm. A suspicious mass is not identified. There is no evidence of hydronephrosis. The left kidney measures 9.3 x 4.3 x 4.4 cm, with the cortical thickness of 11 mm. No cystic or solid mass is identified. There is no evidence of hydronephrosis. The urinary bladder is initially prominently distended with a prevoid volume of 878 mL. The bladder wall is not thickened. No focal mass or calcification is seen in the bladder. The patient voided spontaneously with a post void volume of 31 mL. US/US renal bladder IMPRESSION: A small cyst is seen in the right kidney. No suspicious masses seen in the kidneys. There is no evidence of hydronephrosis. The urinary bladder is initially prominently distended, and the post void volume is 31 cc. Electronically authenticated by: ABRAHAM NEWMAN Date: 09/18/2024 20:38
--- NOTE | 2024-09-18 16:18 | US_ITS ---
The [address] [address] Patient Name: SRINIVAS DAY MRN: [id number] date: 1985 Sex: F Assigned Patient Location: US Current Patient Location: Accession/Order Number: [id number] Exam Date: 09/18/2024 16:26 Report Date: 09/19/2024 07:20 At the request of: ORLIN ROJAS Procedure: US pelvis w/ transvaginal EXAMINATION: US pelvis w/ transvaginal HISTORY: ABNORMAL UTERINE BLEEDING N93.9 COMPARISON: No relevant comparison available. FINDINGS: Transabdominal and transvaginal The uterus measures 10.2 x 4.0 x 6.3 cm. 9 mm ill-defined area of hypoechogenicity in the fundal myometrium. Endometrium measures 4.6 mm, normal The right ovary measures 2.2 x 1.2 x 1.6 cm. Normal color Doppler flow. 1.1 cm follicle/cyst The left ovary measures 4.3 x 1.4 x 1.9 cm. Normal color Doppler flow. Subcentimeter cystic areas likely follicles No ascites US/US pelvis w/ transvaginal IMPRESSION: 9 mm myometrial lesion, a fibroid is favored Electronically authenticated by: ROYA MOSS Date: 09/19/2024 07:20
== END 2024-09-18 16:06 | disposition home or self-care (01) ==
LOC: US 16:07
PROVIDERS: PCP Nurse Practitioner Family; Visit Provider Nurse Practitioner Family
DX: Z00.00 Encounter for general adult medical examination without abnormal findings (principal); R10.9 Unspecified abdominal pain; N93.9 Abnormal uterine and vaginal bleeding, unspecified; N85.9 Noninflammatory disorder of uterus, unspecified; N28.1 Cyst of kidney, acquired
CPT/HCPCS: 76770; 76830; 76856

== ENCOUNTER 2024-09-25 08:13 | Outpatient (OUT) | payer BC, SELFPAY ==
--- OUTSIDE RECORDS SUMMARY | 2024-09-25 08:33 | XMS_ITS | CCD ---
Author Organization [facility] Care Team Providers Care Windows Architect Name Role Phone Waldrop, Juan R. Unavailable [...] Unavailable HOY ., DR GANNON Consulting Unavailable YESSICA ROJAS Primary Care Unavailable YESSICA ROJAS Primary Care Unavailable KARASIK ., DR MOTA Admitting Unavailabl e KARASIFelecia ., DR MOTA Consulting Unavailabl e KARASIK ., DR MOTA Attending Unavailabl e YESSICA ROJAS Admitting Unavailable YESSICA ROJAS Primary Care Unavailable YESSICA ROJAS Consulting Unavailable YESSICA ROJAS Attending Unavailable COLIN HDEZ Consulting Unavailable YESSICA ROJAS Attending Unavailable YESSICA ROJAS Admitting Unavailable YESSICA ROJAS Primary Care Unavailable YESSICA ROJSA Consulting Unavailable JACQUELIN Rojas Attending Provider YESSICA ROJAS Primary Care Physician Yessica Rojas Attending Unavailable Yessica Rojas Admitting Unavailable NILLDustin R Admitting Unavailable NILLDustin Attending Unavailable NILLDustin R Referring Unavailable NILLDustin Attending Unavailable YESSICA ROJAS Referring Unavailable Allergies Allergy Classification Reported Allergen(s) Allergy Type Date of Onset Reaction(s) Facility (1 source) ketamine; Translations: [ketamine] Drug Allergy [facility] Repository (1 source) Compazine Spansule; Translations: [Compazine Spansule] Propensity to adverse reactions (disorder) [facility] Repository (6 sources) Prochlorperazine; Translations: [Compazine] Drug Allergy Anxiety (finding) [facility] Repository (1 source) Prochlorperazine Drug Allergy 05-03-20 [facility] Repository Medications Current Medications Medication Drug Class(es) Dates Sig (Normalized) Sig (Original) acetaminophen 325 mg / HYDROcodone bitartrate 5 mg oral tablet (2 sources) Opioid Agonist Start: 09-26-2018 take 1 tablet by mouth every six hours Hydrocodone-Aceta minophen ([place]) 5-325 mg tablet Active 1 TAB PO Q6H 10 3 September 26, 2018 Start: 08-29-2018 End: 09-03-2018 take 1 tablet by mouth every six hours Hydrocodone-Acetaminophen ([place]) 5-325 mg tablet Discontinued 1 TAB PO Q6H 20 August 29, 2018 September 03, 2018 12:02am amoxicillin 875 mg oral tablet (1 source) Penicillin-class Antibacterial Start: 09-11-2022 take 1 tablet by mouth every twelve hours Amoxicillin 875 MG 1 tablet Orally every 12 hrs for 10 days Aug, Active Calcium + D 500-1000-40 MG-UNT-MCG (1 source) take 500-1000 tablets by mouth twice daily ciprofloxacin 500 mg oral tablet (1 source) Quinolone Antimicrobial Start: 09-26-2018 take 500 mg by mouth twice daily Ciprofloxacin Hcl Active 500 MG PO Twice daily September 26, 2018 12:00am ibuprofen 600 mg oral tablet (2 sources) Nonsteroidal Anti-inflammatory Drug Start: 08-29-2018 Ibuprofen Active 600 MG PO Every 6 hours August 29, 2018 12:00am do not exceed 4 doses in a 24 hour period take 1 tablet by elvin th three times daily at mealtime as needed Ibuprofen 600 MG 1 tablet with food or milk as needed Orally Three times a day Active 10/01 (2 sources) Start: 10-05-2023 take 1 tablet by mouth once daily 10/01 1 tab(s), Oral, Daily, Refill(s) 0 Start Date: 10/05/23 Status: Ordered 1 ml medroxyPROGESTERone acetate 150 mg/ml prefilled syringe (1 source) Progestin Depo-Provera 150 MG/ML 1 mL Intramuscular Active methylPREDNISolone 4 mg oral tablet (1 source) Corticosteroid Start: 09-11-2022 methylPREDNISolone 4 MG as directed Orally Once a day for 6 days Aug, Active phenazopyridine hydrochloride 100 mg oral tablet (2 sources) Start: 09-26-2018 take 1 tablet by mouth twice daily Phenazopyridine (Pyridium) 100 mg Tablet Active 100 MG PO Twice daily September 26, 2018 12:00am Start: 01-23-2018 End: 08-29-2018 take 1 tablet by mouth every eight hours at mealtime Phenazopyridine (Pyridium) 200 mg tablet Discontinued 200 MG PO Q8H January 22, 2018 11:00pm August 29, 2018 1:03pm administer with food and large glass water Completed/Discontinued Medications Medication Drug Class(es) Dates Sig (Normalized) Sig (Original) cephalexin 500 mg oral capsule (1 source) Cephalosporin Antibacterial Start: 01-23-2018 End: 01-30-2018 take 1 capsule by mouth every eight hours Cephalexin (Keflex) 500 mg capsule Discontinued 500 MG PO Q8H 21 January 22, 2018 11:00pm January 29, 2018 11:01pm ethinyl estradiol 0.03 mg / norethindrone acetate 1.5 mg oral tablet (1 source) Estrogen Start: 01-23-2018 End: 09-26-2018 take 1 tablet by mouth once daily Norethindrone Ac-Eth Estradiol (Loestrin 1.5/30 (21)) 1.5-30 mg-mcg Tablet Discontinued 1 TAB PO Daily January 22, 2018 11:00pm September 26, 2018 10:19am SUMAtriptan 100 mg oral tablet (3 sources) Serotonin-1b and Serotonin-1d Receptor Agonist Start: 10-05-2023 Imitrex 100 mg Tab 100 mg = 1 tab(s), Oral, Daily, PRN Migraine headache, Oral, 0 Refill(s), Refills(s) 0 Start Date: 10/05/23 Status: Ordered take 1 tablet by elvin every two hours as needed, then take 1 tablet by mouth twice daily as needed Problems Active Problems Problem Classification Problem Date Documented Da te Episodic/Chronic Abdominal hernia (3 sources) Incisional hernia; Translations: [Incisional hernia without obstruction or gangrene] Onset: 10-19-2023 Episodic Adjustment disorders (2 sources) Adjustment disorder with anxious mood 10-05-2023 Chronic Anxiety disorders (4 sources) Generalized anxiety disorder; Translations: [Posttraumatic stress disorder] 10-05-2023 Chronic Asthma (2 sources) Asthma 10-05-2023 Chronic Comment on above: Outside Source Comme nt: Take rx inhalers regularly Chronic kidney disease (6 sources) Chronic kidney disease stage 3; Translations: [Chronic kidney disease, stage 3 unspecified] Chronic Endometriosis (2 sources) Endometriosis (clinical) 10-05-2023 Chronic Comment on above: Outside Source Comme nt: Refer for laparoscopy, pt wants confirmation of endometriosis prior to taking any injections Headache; including migraine (2 sources) Migraine 10-05-2023 Chronic Immunizations and screening for infectious disease (2 sources) Contact with and (suspected) exposure to other viral communicable diseases; Translations: [Encounter for screening for human papillomavirus (HPV)] Onset: 01-13-2023 Episodic Inflammatory diseases of female pelvic organs (2 sources) Female pelvic inflammatory disease 10-05-2023 Episodic Comment on above: Outside Source Comme nt: US done this am and pending reading-will check later and let pt know.Will get GC,chlamydia,wet preps-Rx Rocephin 250 mg IM x 1 and vibramycin 100 bid for 10 days,Percocet 1-2 q 6 h prn pain To f/u by phone 24 hrs or sooner as needed Mood disorders (2 sources) Depressive disorder 10-05-2023 Chronic Nonmalignant breast conditions (3 sources) Lump in left breast; Translations: [Unspecified lump in the left breast, unspecified quadrant] Onset: 10-19-2023 Episodic Other congenital anomalies (2 sources) Congenital postural scoliosis 10-05-2023 Chronic Other gastrointestinal disorders (1 source) Swollen abdomen; Translations: [Other intra-abdominal and pelvic swelling, mass and lump] Onset: 10-19-2023 Episodic Other gastrointestinal disorders (2 sources) Groin mass 10-19-2023 Episodic Other screening for suspected conditions (not mental disorders or infectious disease) (8 sources) Encounter for screening for malignant neoplasm of cervix; Translations: [Abnormal results of kidney function studies] Onset: 02-01-2022 Episodic Other upper respiratory disease (2 sources) Allergic rhinitis 10-05-2023 Chronic Comment on above: Outside Source Comme nt: possible, having recurrent stuffiness with Eustacian tube dysfunction. Trial of Flonase daily & Sudafed prn. f/u prn. Other upper respiratory infections (2 sources) Acute pharyngitis, unspecified; Translations: [Acute laryngitis] Episodic Otitis media and related conditions (1 source) Otitis media, unspecified, bilateral Episodic Residual codes; unclassified (1 source) Breast prosthesis in situ; Translations: [Breast implant status] Onset: 10-19-2023 Chronic Residual codes; unclassified (2 sources) History of bilateral breast implants 10-19-2023 Chronic Residual codes; unclassified (1 source) Family history of breast cancer; Translations: [Family history of malignant neoplasm of breast] Onset: 10-19-2023 Episodic Residual codes; unclassified (2 sources) Family history of malignant neoplasm of breast in first degree relative 10-19-2023 Episodic Residual codes; unclassified (2 sources) Insomnia 10-05-2023 Episodic Screening and history of mental health and substance abuse codes (2 sources) Ex-smoker 10-05-2023 Episodic Unclassified (2 sources) Body mass index 20-24 - normal 10-19-2023 Past or Other Problems Problem Classification Problem Date Documented Da te Episodic/Chronic Cancer of kidney and renal pelvis (4 sources) Personal history of other malignant neoplasm of kidney; Translations: [PERS HX OTH MALIG NEOPLASM KIDNEY] Onset: 02-13-2022 Episodic Results Test Name Value Interpretation Reference Range Facility [facility] 04-18-2024 Reminders Reminders From: Elva Rajput LPN To: N - Clinical; Sent: 11/03/2023 10:12:55 EST Show up: 04/12/2024 07:00:00 EDT Subject: breast US recall Due Date/Time: 04/27/2024 07:00:00 EDT Reminder/Recall Patient due for left breast US 04/27/24 due to cat 3 breast MRI. History of cat 4 mammogram/US and dense breast with implants. Voice mail is full. Will call again at later time. Voice mail message left to call back. Patient declined to schedule at this time due to cost. Normal [facility] MRI Breast w/o and w/ Contra [place] 11-01-2023 MRI Breast w/o and w/ Contrast, Bilat Exam Date/Time: 10/28/2023 15:37 EST Reason for Exam: category 4 left breast mammogram, abnormal US, dense breasts with bilateral implants;Other (please specify) Report [facility] [phone] IMPRESSION: BIRADS 3 PROBABLY BENIGN, SHORT INTERVAL FOLLOW-UP DIRECTED LEFT BREAST ULTRASOUND IS SUGGESTED AT 6 AND 12 MONTHS. EXAM: MRI Breast w/o and w/ Contrast, Bilat DATE: 10/28/2023 3:01 PM CLINICAL HISTORY: category 4 left breast mammogram, abnormal US, dense breasts with bilateral implants. COMPARISONS: Outside diagnostic mammograms and bilateral breast ultrasounds 09/22/2023, and ultrasound-guided left breast FNA 09/28/2023 (with pathology report). TECHNIQUE: This study was performed on a 1.5 Heidi magnet. A dedicated in vivo seven channel breast coil was used. T1 weighted images and fat sat T2 weighted images were initially obtained. Dynamic Breast MR imaging was then performed with fat sat pre and post-T1 weighted images after the patient received 3 mL of Vueway gadolinium contrast. Multiplanar images of both breasts were displayed. Post-contrast MIP; time-signal intensity curves; angio-maps; and subtraction images were generated at the dedicated breast Pop Up [employer] workstation FINDINGS: Bilateral intact saline implants are otherwise unremarkable. Both breasts are heterogeneously dense with marked background parenchymal enhancement. A small lobular area of similar-appearing background parenchymal enhancement within the upper-outer quadrant of the left breast approximately 4.4 cm from the center of the nipple (image 90 - first subtracted postcontrast series 9) may account for the biopsy the lesion, smaller somewhat lobulated areas noted elsewhere, and on the right. There are no suspiciously enhancing masses, lymphadenopathy, cysts, dilated ducts, or other findings of concern identified. Report CAD analysis was performed and used in the interpretation. Board Certified Radiologists. Accredited by the ACR and FDA. MAMMOGRAPHY IS VERY IMPORTANT TO YOUR HEALTH. THE CURRENT [place] [employer] GUIDELINES RECOMMENDS ANNUAL MAMMOGRAPHY BEGINNING AT AGE 40. THIS FACILITY UTILIZES A REMINDER SYSTEM TO ENSURE ALL PATIENTS RECEIVE REMINDER NOTIFICATIONS AT THE APPROPRIATE TIME BASED ON THE RECOMMENDATIONS OF THIS EXAM. \X09\ Ordering Provider: Dustin PALMA FINAL REPORT Dictated: 11/01/2023 10:35 am Riaz Resendez MD Signed (Electronic Signature): 11/01/2023 10:35 am Signed by: Riaz Resendez MD Transcribed by: HONG Technologist: ALBARO Assessment: BI-RADS Category 3-Probably benign - short interval follow-up Recommendation: Follow-up at short interval Technical Comments Vueway Contrast amount in ml's: 3 Normal [facility] CT Abdomen/Pelvis w/ Contras ton 10-28-2023 CT Abdomen/Pelvis w/ Contrast Exam Date/Time: 10/28/2023 13:28 EST Reason for Exam: RLQ abdominal pain;Other (please specify) Report IMPRESSION: LEFT ADNEXAL CYST, MOST LIKELY OVARIAN IN ETIOLOGY. NO VENTRAL WALL HERNIA IDENTIFIED. SMALL BILATERAL FAT-CONTAINING INGUINAL HERNIA IS, WITH NO CT EVIDENCE OF INCARCERATION OR OBSTRUCTION CT OF THE ABDOMEN AND PELVIS WITH INTRAVENOUS CONTRAST MEDIUM. History: RLQ abdominal pain. Midepigastric hernia. Right inguinal bulging with pain for 2 to 3 months. Technical Factors: CT imaging of the abdomen and pelvis were obtained and formatted as 5 mm contiguous axial images from the domes of the diaphragm to the symphysis pubis. Sagittal and coronal reconstructions were also obtained. Oral contrast medium: Barium sulfate, 900 mL. Intravenous contrast medium: Isovue-300, 100 mL. Comparison: None Findings: Lower chest: Lung bases are clear. Bilateral breast augmentation. Liver: Normal in size, shape, and attenuation. Bile Ducts: Normal in caliber. Gallbladder: No stones or wall thickening. Pancreas: Normal without masses, cysts, ductal dilatation or calcification. Spleen: Normal in size without masses or calcifications. No splenules. Kidneys: Normal in size and enhancement. No hydronephrosis, masses, or stones. Adrenals: Normal. Small bowel: Normal in caliber. Appendix: Not visualized. Colon: Normal in caliber. Report Peritoneum: No ascites, free air, or fluid collections. Vessels: Aorta normal in course and caliber. Portal vein, splenic vein, superior mesenteric vein are patent. Lymph nodes: Retroperitoneal: No enlarged retroperitoneal lymph nodes. Mesenteric: No enlarged mesenteric lymph nodes. Pelvic: No enlarged pelvic lymph nodes. Ureters: Normal in course and caliber. No calcifications. Bladder: No wall thickening. Reproductive organs: 2.8 x 2.1 cm left adnexal cyst. Abdominal Wall: Small amount of fat identified bilaterally within proximal inguinal canals. No diastasis of rectus musculature. No edema or masses. Bones: No bone lesions. No degenerative changes. No post operative changes. All CT scans at this facility use dose modulation, iterative reconstruction, and/or weight based dosing when appropriate to reduce radiation dose to as low as reasonably achievable. Ordering Provider: Dustin PALMA FINAL REPORT Dictated: 10/28/2023 3:29 pm Gary Borrero MD Signed (Electronic Signature): 10/28/2023 3:29 pm Signed by: Gary Borrero MD Transcribed by: HONG Technologist: LEXIS Technical Comments GFR (mL/min/1/73m2) na Contrast: Isovue 300 Contrast amount in ml's: 100 Oral contrast amount in ml's: 900 Normal [facility] Consent for Treatmenton 10-13 Consent for Treatment [id number]#1.00TIFF Normal [facility] RAD - MISCon 10-28-2023 RAD - MISC [id number]#1.00TIFF Normal [facility] RAD - MISC [id number]#1.00TIFF Normal [facility] RAD - MRI Screening Formon 0 10-28-2023 RAD - MRI Screening Form [id number]#1.00TIFF Normal [facility] Facesheeton 10-20-2023 Facesheet [id number]#1.00TIFF Normal [facility] Ambulatory Visit Summaryon 0 10-19-2023 Ambulatory Visit Summary NURIS DAY :1985 Visit Date:10/19/2023 Ambulatory Visit Instructions Your Care Team Attending Physician - Dustin PALMA MD Primary Care Physician - YESSICA ROJAS CNP Referring Physician - YESSICA ROJAS CNP This Is Your Medications List ethinyl estradiol-norethindrone (10/01) sumatriptan (Imitrex 100 mg Tab) Procedures Performed Appendectomy, Breast augmentation, section, section, section, section, section, Endometrial ablation, Endometrial ablation, Laparoscopy, Laparoscopy, LEEP (Loop electrosurgical excision procedure) of cervix, Nasal septoplasty, Open reversal of tubal ligation, Ovarian cystectomy, Repair of recurrent umbilical hernia, Repair of umbilical hernia, Rhinoplasty, Tonsillectomy and adenoidectomy, Tubal ligation. Discharge Vitals Respiratory Rate 16 Blood Pressure 112/74 Height 154.9 cm Height 61 in Weight 52.7 kg Weight 115.94 lb BMI 21.96 Medications What How Much When Instructions Unchanged ethinyl estradiol-norethindrone () 1 Tablets By Mouth Every day Unchanged sumatriptan (Imitrex 100 mg Tab) 1 Tablets By Mouth Every day as needed for Migraine headache Oral, 0 Refill(s) Medications and Immunizations Administered Not Given influenza virus vaccine, inactivated, Patient Refuses Allergies Compazine (Anxiety) Problems Ongoing - Any problem that you are currently receiving treatment for. Adjustment disorder with anxious mood Allergic rhinitis Asthma BMI 21.0-21.9, adult Chronic kidney disease stage 3 Congenital postural scoliosis Depressive disorder Endometriosis Female pelvic inflammatory disease Former smoker Generalized anxiety disorder Insomnia Migraine Posttraumatic stress disorder Patient Survey You may receive a survey via text or e-mail asking about your office visit. Please share your experience with us by completing your survey. We appreciate your feedback and thank you for choosing us for your care. [facility] Insurance Correspondenceon 0 10-19-2023 Insurance Correspondence [id number]#1.00TIFF [facility] Outside Mammographyon 2023 Outside Mammography [id number]#1.00TIFF [facility] Pathology Noteon 10-06-2023 Pathology Note [id number]#1.00TIFF Normal [facility] RAD - Ultrasound Reporton RAD - Ultrasound Report [id number]#1.00TIFF Normal [facility] Physician Referralon 024 Physician Referral [id number]#1.00TIFF Normal [facility] Wallace 09-28-2023 L Specimen: [id number] Rec eived: 09/28/23 Status: SOUT Req Num: [id number] Spec Type: Cytology Subm Dr: Yessica Rojas CNP Tissues: A BREASTCYSTFLUID (LT BREAST MASS) Procedures: HE/2, Gross/Micro L4, Cyto Prepstain, PAPSTN/7 Age/ Patient Sex Location Account Attending Physician Nuris Saldana M 38/F [facility] [id number] Yessica Rojas CNP SPEC NUM: [id number] RECD: 09/28/23 STATUS: SOUT REQ NUM: [id number] SHELL: 09/28/23 DR: Yessica Rojas CNP ENTERED: 09/28/23 [facility] DR: Louise Dowling SPEC TYPE: Cytology DEPT: MAIKOL ART ENTERED BY: [id number] RECV BY: [id number] ORDERED: HE/2, Gross/Micro L4, Cyto Prepstain, PAPSTN/7 ORDERED: HE/2, Gross/Micro L4, Cyto Prepstain, PAPSTN/7 Pathological Diagnosis Left breast mass at 10:00, ultrasound-guided FNA: - Appropriate for assessment - Many apocrine cells in variable groups are present in many prepared smears, and in ThinPrep slide as well, consistent with samplings of the apocrine lesion - The cell block section is hypocellular and not applicable for further assessment or interpretation NOTE: - There is no high-grade cytology identified - The apocrine lesion encompass a spectrum of disease process, including benign to low- grade to high-grade lesions - The overall findings may suggest benign apocrine lesion including apocrine cyst or apocrine hyperplasia, but still cannot totally exclude low-grade lesion, requiring clinical correlations, and additional biopsy tissue for further assessment accordingly as appropriate -- Specimen: [id number] Received: 09/28/23 Status: WALTER Hanley Num: [id number] Spec Type: Cytology Subm Dr: Yessica Rojas CNP Tissues: A BREASTCYSTFLUID (LT BREAST MASS) Procedures: HE/2, Gross/Micro L4, Cyto Prepstain, PAPSTN/7 -- Patient: Nuris Saldana [id number] (Continued) -- Specimen: [id number] Received: 09/28/23 (Continued) Signed (signature on file) Poornima Ruggiero MD 09/30/23 1128 -- Specimen: [id number] Received: 09/28/23 Status: WALTER Hanley Num: [id number] Spec Type: Cytology Subm Dr: Yessica Rojas CNP Tissues: A BREASTCYSTFLUID (LT BREAST MASS) Procedures: HE/2, Gross/Micro L4, Cyto Prepstain, PAPSTN/7 -- Patient: Nuris Saldana [id number] (Continued) -- Specimen: [id number] Received: 09/28/23 (Continued) Gross Description Received is 30 ml pale pink clear fixed fluid for cytology said to have been obtained as Us guided FNA. Thin prep and cell block preparations are prepared for microscopic examination. Also received are 6 smeared slides for microscopic examination.(CC/dc) CPT Codes 25924, 23189 -- -- Specimen: [id number] Received: 09/28/23-1440 Status: WALTER Hanley Num: [id number] Spec Type: Cytology Subm Dr: Yessica Rojas CNP Tissues: A BREASTCYSTFLUID (LT BREAST MASS) Procedures: HE/2, Gross/Micro L4, Cyto Prepstain, PAPSTN/7 -- Patient: Nuris Saldana [id number] (Continued) -- Signed (signature on file) Ramin-Jamie Ruggiero MD 09/30/23 1128 [facility] Physician Referralon 024 Physician Referral [id number]#1.00TIFF Normal [facility] PAP ACOG PANEL 2: 30 to 65on 01-17-2023 . . Normal [facility] Comment on above: Result Comment: Perf ormed at: [facility] Performed By: #### [id number] #### [facility] [address] [place] [address] Dr. Debo Ruggiero Age Gdln ACOG Testing 30-65 Normal [facility] Comment on above: Performed By: #### [id number] #### [facility] [address] [place] [address] Dr. Debo Ruggiero DIAGNOSIS: Comment Normal [facility] Comment on above: Result Comment: NEGA TIVE FOR INTRAEPITHELIAL LESION OR MALIGNANCY. Performed at: [facility] Performed By: #### [id number] #### [facility] [address] [place] [address] Dr. Debo Ruggiero HPV Aptima Negative Normal Negative [facility] Comment on above: Result Comment: This nucleic acid amplification test detects fourteen high-risk HPV types (16,18,31,33,35,39,45,51,52,56,58,59,66,68) without differentiation. Performed at: =G Performed By: #### [id number] #### [facility] [address] [place] [address] Dr. Debo Ruggiero HPV Genotype Reflex Comment Normal [facility] Comment on above: Result Comment: Crit eria not met, HPV Genotype not performed. Performed at: [facility] Performed By: #### [id number] #### [facility] [address] [place] [address] Dr. Debo Ruggiero Methodology: Comment Normal [facility] Comment on above: Result Comment: This liquid based ThinPrep(R) pap test was screened with the use of an image guided system. Performed at: [facility] Performed By: #### [id number] #### [facility] [address] [place] [address] Dr. Debo Ruggiero Note: Comment Normal [facility] Comment on above: Result Comment: The Pap smear is a screening test designed to aid in the detection of premalignant and malignant conditions of the uterine cervix. It is not a diagnostic procedure and should not be used as the sole means of detecting cervical cancer. Both false-positive and false-negative reports do occur. . Performed at: [facility] Performed By: #### [id number] #### [facility] [address] [address] [address] Debo Ruggiero Performed by: Comment Normal [facility] Comment on above: Result Comment: Nayeli Lemus Mixer Machine Feeder (ASCP) Performed at: [facility] Performed By: #### [id number] #### [facility] [address] [address] [address] Debo Ruggiero Specimen adequacy: Comment Normal [facility] Comment on above: Result Comment: Sati sfactory for evaluation. No endocervical component is identified. Performed at: [facility] Performed By: #### [id number] #### [facility] [address] [address] [address] Debo Ruggiero COVID/FLU/RSV RT-PCRon 09-11 SARS-CoV-2 (COVID-19) RNA CAMILA+probe Ql (Unsp spec) Negative [facility] Other COVID/FLU/RSV RT-PCR Negative [facility] Other Quick Strepon 09-11-2022 S. pyogenes Org specific cx Ql (Throat) Negative Upward Mobility [facility] [employer] Other [email or web address] Strep [facility] Other US KIDNEYS BLADDERon 05- 022 US KIDNEYS BLADDER Ultrasound kidneys, bilateral [...] COLIN HDEZ Date: 2022-02-14 21:18 Normal [facility] PROF 14(COMP METB)on 022 Albumin [Mass/Vol] 4.0 g/dL Normal 3.4-5.0 [facility] Comment on above: Performed By: #### C MP #### [facility] [address] [place] [address] Dr. Debo Ruggiero Albumin/Globulin [Mass ratio] 1.1 {ratio} Normal [facility] Comment on above: Performed By: #### C MP #### [facility] [address] [place] [address] Dr. Debo Ruggiero ALP [Catalytic activity/Vol] 65 U/L Normal 46-116 [facility] Comment on above: Performed By: #### C MP #### [facility] [address] [place] [address] Dr. Debo Ruggiero ALT [Catalytic activity/Vol] 19 U/L Normal 14-59 [facility] Comment on above: Performed By: #### C MP #### [facility] [address] [place] [address] Dr. Debo Ruggiero Anion gap [Moles/Vol] 12.6 mmol/L Normal [facility] Comment on above: Performed By: #### C MP #### [facility] [address] [place] [address] Dr. Debo Ruggiero AST [Catalytic activity/Vol] 15 U/L Normal 15-37 [facility] Comment on above: Performed By: #### C MP #### [facility] [address] [place] [address] Dr. Debo Ruggiero Bilirubin [Mass/Vol] 0.6 mg/dL Normal 0.2-1.0 [facility] Comment on above: Performed By: #### C MP #### [facility] [address] [address] [address] Debo Ruggiero Calcium [Mass/Vol] 9.2 mg/dL Normal 8.5-10.1 [facility] Comment on above: Performed By: #### C MP #### [facility] [address] [address] [address] Debo Ruggiero Chloride [Moles/Vol] 103 mmol/L Normal 98-107 [facility] Comment on above: Performed By: #### C MP #### [facility] [address] [address] [address] Debo Ruggiero CO2 [Moles/Vol] 29.1 mmol/L Normal 21.0-32.0 [facility] Comment on above: Performed By: #### C MP #### [facility] [address] [place] [address] Dr. Debo Ruggiero Creatinine [Mass/Vol] 1.18 mg/dL Critically high 0.55-1.02 [facility] Comment on above: Performed By: #### C MP #### [facility] [address] [place] [address] Dr. Debo Ruggiero EGFR-AF KUWAITI >60 Normal >=60 [facility] Comment on above: Performed By: #### C MP #### [facility] [address] [place] [address] Dr. Debo Ruggiero EGFR-NON AF KUWAITI 52 mL/min/1.73m2 Critically low >=60 [facility] Comment on above: Performed By: #### C MP #### [facility] [address] [place] [address] Dr. Debo Ruggiero Globulin (S) [Mass/Vol] 3.8 g/dL Normal [facility] Comment on above: Performed By: #### C MP #### [facility] [address] [place] [address] Dr. Debo Ruggiero Glucose [Mass/Vol] 81 mg/dL Normal 74-106 [facility] Comment on above: Performed By: #### C MP #### [facility] [address] [place] [address] Dr. Debo Ruggiero Potassium [Moles/Vol] 4.7 mmol/L Normal 3.5-5.1 [facility] Comment on above: Performed By: #### C MP #### [facility] [address] [address] [address] Debo Ruggiero Protein [Mass/Vol] 7.8 g/dL Normal 6.4-8.2 [facility] Comment on above: Performed By: #### C MP #### [facility] [address] [address] [address] Debo Ruggiero Sodium [Moles/Vol] 140 mmol/L Normal 136-145 [facility] Comment on above: Performed By: #### C MP #### [facility] [address] [address] [address] Debo Ruggiero Urea nitrogen [Mass/Vol] 19.0 mg/dL Critically high 7.0-18.0 [facility] Comment on above: Performed By: #### C MP #### [facility] [address] [place] [address] Dr. Debo Ruggiero Urea nitrogen/Creatini ne [Mass ratio] 16.1 mg/mg Normal [facility] Comment on above: Performed By: #### C MP #### [facility] [address] [place] [address] Dr. Debo Ruggiero PROF 14(COMP METB)on 022 Albumin [Mass/Vol] 4.1 g/dL Normal 3.4-5.0 [facility] Comment on above: Performed By: #### C MP #### [facility] [address] [place] [address] Dr. Debo Ruggiero Albumin/Globulin [Mass ratio] 1.2 {ratio} Normal [facility] Comment on above: Performed By: #### C MP #### [facility] [address] [place] [address] Dr. Debo Ruggiero ALP [Catalytic activity/Vol] 58 U/L Normal 46-116 [facility] Comment on above: Performed By: #### C MP #### [facility] [address] [place] [address] Dr. Debo Ruggiero ALT [Catalytic activity/Vol] 19 U/L Normal 14-59 [facility] Comment on above: Performed By: #### C MP #### [facility] [address] [address] [address] Debo Ruggiero Anion gap [Moles/Vol] 11.7 mmol/L Normal [facility] Comment on above: Performed By: #### C MP #### [facility] [address] [address] [address] Debo Ruggiero AST [Catalytic activity/Vol] 15 U/L Normal 15-37 [facility] Comment on above: Performed By: #### C MP #### [facility] [address] [address] [address] Dbeo Ruggiero Bilirubin [Mass/Vol] 0.6 mg/dL Normal 0.2-1.0 [facility] Comment on above: Performed By: #### C MP #### [facility] [address] [address] [address] Debo Ruggiero Calcium [Mass/Vol] 8.6 mg/dL Normal 8.5-10.1 [facility] Comment on above: Performed By: #### C MP #### [facility] [address] [address] [address] Debo Ruggiero Chloride [Moles/Vol] 106 mmol/L Normal 98-107 [facility] Comment on above: Performed By: #### C MP #### [facility] [address] [address] [address] Debo Ruggiero CO2 [Moles/Vol] 28.3 mmol/L Normal 21.0-32.0 [facility] Comment on above: Performed By: #### C MP #### [facility] [address] [address] [address] Debo Ruggiero Creatinine [Mass/Vol] 1.35 mg/dL Critically high 0.55-1.02 [facility] Comment on above: Performed By: #### C MP #### [facility] [address] [address] [address] Debo Ruggiero EGFR-AF KUWAITI 53 mL/min/1.73m2 Critically low >=60 [facility] Comment on above: Performed By: #### C MP #### [facility] [address] [place] [address] Dr. Debo Ruggiero EGFR-NON AF KUWAITI 44 mL/min/1.73m2 Critically low >=60 [facility] Comment on above: Performed By: #### C MP #### [facility] [address] [address] [address] Debo Ruggiero Globulin (S) [Mass/Vol] 3.4 g/dL Normal [facility] Comment on above: Performed By: #### C MP #### [facility] [address] [place] [address] Dr. Debo Ruggiero Glucose [Mass/Vol] 82 mg/dL Normal 74-106 [facility] Comment on above: Performed By: #### C MP #### [facility] [address] [place] [address] Dr. Debo Ruggiero Potassium [Moles/Vol] 4.0 mmol/L Normal 3.5-5.1 [facility] Comment on above: Performed By: #### C MP #### [facility] [address] [place] [address] Dr. Debo Ruggiero Protein [Mass/Vol] 7.5 g/dL Normal 6.4-8.2 [facility] Comment on above: Performed By: #### C MP #### [facility] [address] [place] [address] Dr. Debo Ruggiero Sodium [Moles/Vol] 142 mmol/L Normal 136-145 [facility] Comment on above: Performed By: #### C MP #### [facility] [address] [place] [address] Dr. Debo Ruggiero Urea nitrogen [Mass/Vol] 18.0 mg/dL Normal 7.0-18.0 [facility] Comment on above: Performed By: #### C MP #### [facility] [address] [place] [address] Dr. Debo Ruggiero Urea nitrogen/Creatini ne [Mass ratio] 13.3 mg/mg Normal [facility] Comment on above: Performed By: #### C #### [facility] [address] [address] [address] Debo Ruggiero Anesthesia Consultationon Anesthesia Consultation Patient: NURIS JOLLY Age: 32 years Sex: Female : 1985 Associated Diagnoses: None Author: Carlos Juarez Jr., DO Postoperative Information Post Operative Note: Post Anesthesia Care Unit. Anesthetic utilized: General, Monitored anesthesia care. Health Status Allergies: Allergic Reactions (Selected)SevereKetamine- Rash and itching.Severity Not DocumentedCompazine Spansule- Anxiety. Current medications: (Selected) PrescriptionsPrescribedPercoce t 325 mg-5 mg Tab: 1 tab(s), Oral, q4hr as needed for pain for 7 day(s), 12 tab(s), Refill(s) 0, Take one tab by mouth every four hours as needed for pain, [id number] MedicationsDocumentedRemeron 15 mg Tab: .25 tabe, Oral, Once a day (at bedtime), Insomnia Problem list: All ProblemsArthropathies / SNOMED CT 8697153780 / Confirmedarthritis of the backAsthma / SNOMED CT 969052004 / ConfirmedOvarian cyst / SNOMED CT 292687759 / ConfirmedEndometriosis / SNOMED CT 615596067 / ConfirmedPanic attack / SNOMED CT 116225245 / ConfirmedScoliosis / SNOMED CT 050014377 / Confirmed Physical Examination Intake and Output Denies significant n/v and is tolerating p.o. No qualifying data available Respiratory: Adequate air exchange with synagogue of preoperative function.. Cardiovascular: Cardiovascular function is stable and has returned to preoperative levels.. Neurologic: Pt has returned to preoperative baseline.. Review / Management Condition: Stable. Assessment Anesthetic outcome No anesthetic complications noted. Plan Transfer/ Discharge: Patient can be discharged from PACU when criteria met. Condition good. Normal [facility] Coding Summary.on 10-19-2017 Coding Summary. CODING DATE: 018 FINAL [facility] STATUS: Home (Routine DC) PAYOR: Nemesio APC [...] Kelsey Curtis Date Saved: 10/19/2017 10:15 am Normal [facility] US LE Venous Duplex Righton 10-18-2017 US [...] MD Transcribed by: HONG Technologist: JAYLA Normal [facility] Coding Summary.on 10-17-2017 Coding Summary. CODING DATE: 018 FINAL [facility] STATUS: Home (Routine DC) PAYOR: Potlatch APC DESCRIPTION 5361 Level 1 Laparoscopy and Related Services ADMIT DX: REASON FOR VISIT DX: K43.2 Incisional hernia without obstruction or gangrene FINAL DX: PRINCIPAL: K43.0 Incisional hernia with obstruction, without gangrene SECONDARY: PYMT PROC APC STAT DESCRIPTION DOCTOR NAME DATE 30438 5361 J1 Repair recurrent Juan Waldrop MD 10/14/2017 incisional or ventral hernia; incarcerated or strangulated 77843 Implantation of mesh or Juan Waldrop MD 10/14/2017 other prosthesis for open incisional or ventral hernia repair or mesh for closure of debridement for necrotizing soft tissue infection (List separately in addition to code for the incisional or ventral hernia repair) 04081 Anesthesia for hernia Juan Waldrop MD 10/14/2017 repairs in upper abdomen; lumbar and ventral (incisional) hernias and/or wound dehiscence NOTE: The code number assigned matches the documented diagnosis and / or procedure in the patient's chart. However, the narrative phrase printed from the coding software may appear abbreviated, or result in slightly different terminology. Coded By: Yancy Skinner Date Saved: 10/17/2017 04:26 pm Normal [facility] Main OR Intraoperative Recor don 10-17-2017 Main OR Intraoperative Record IntraOp Document Type FT Summary Primary Physician: Juan Waldrop MD Finalized Date/Time: 10/17/17 13:38:27 Pt. Name: NURIS JOLLY/Sex: 1985 Female Med Rec #: [id number] Physician: Juan Waldrop MD Financial #: [id number] Pt. Type: A Room/Bed: [facility]/ Admit/Disch: 10/14/17 09:21:00 - 10/14/17 16:00:00 Institution: [...] Flavia Role Performed Anesthesiologist Surgeon - Primary ICT TEACHER/SA Trench Digging Machine Operator Time In 10/14/17 11:55:00 10/14/17 11:52:00 10/14/17 11:39:00 Time Out 10/14/17 12:57:00 10/14/17 12:55:00 10/14/17 12:57:00 Procedure INCISIONAL HERNIA INCISIONAL HERNIA INCISIONAL HERNIA REPAIR(.) REPAIR(.) REPAIR(.) Comments Dr. Juaerz supervising Amanda Torres MS 4 LUNCH [id number] scrubbed for case Last Modified By: Rich RN, Leidy 10/14/17 Rich RN, Leidy 10/14/17 Rich RN, Leidy 10/14/17 13:01:34 13:01:34 13:01:34 Entry 4 Entry 5 Entry 6 Case Attendee Rich JIM, Leidy Boston RN, Marce Mendoza CST, Shade Melendez Role Performed Net Repairer - Primary Net Repairer - Relief Scrub - Primary Time In 10/14/17 11:39:00 10/14/17 11:39:00 10/14/17 11:39:00 Time Out 10/14/17 12:57:00 10/14/17 12:30:00 10/14/17 12:57:00 Procedure INCISIONAL HERNIA INCISIONAL HERNIA INCISIONAL HERNIA REPAIR(.) REPAIR(.) REPAIR(.) Comments out for lunch [id number] LUNCH [id number] Last Modified By: Rich RN, Leidy 10/14/17 Rich RN, Leidy 10/14/17 Rich RN, Leidy 10/14/17 13:01:34 13:01:34 13:01:34 Entry 7 Entry 8 Case Attendee Larry Rivas DO, Gary Luo CST Role Performed Anesthesiologist of Scrub - Relief Record Time In 10/14/17 11:39:00 10/14/17 12:27:00 Time Out 10/14/17 11:56:00 10/14/17 12:57:00 Procedure INCISIONAL HERNIA INCISIONAL HERNIA REPAIR(.) REPAIR(.) Comments Last Modified By: Rich RN, Leidy 10/14/17 [...] Palma JARA, Juan Chin, Given Participants Gregory ICT TEACHER/SA, Darvin Alejandro RN, Kelly Claire ICT TEACHER, Bladimir Clement CAA, Larry Barton Jr. DO, Carlos Time Out Complete 10/14/17 11:56:00 [...] and tissue Entry 1 Skin Integrity Intact, Jemison, Warm, and Skin Abnormality No Dry Outcomes [...] Head Large Press Points Checked Yes By Larry Rivas DO, Gregory Gonzalez ICT TEACHER/SA, Darvin Alejandro RN, Marce Melendez Outcomes Met? Yes Last Modified By: Liedy Villanueva RN 10/14/17 12:03:53 Post-Care Text: The [...] RN Patient Status Stable Skin. Condition Intact, Jemison, Warm, and Dry Airway Maintenance Oxygen in [...] Items DRESSING GAUZE 4 X 4 10'S [490824][F] Site and Details abdomen: mastisol, Outcomes Met? Yes steri-strips /4 , telfa, 4x4, foam tape Last Modified [...] safely administered during the perioperative period For [place] please see scanned medication reconcilliation form for medications used at the field during the procedure. Implant Log FT Pre-Care Text: Records devices implanted during the operative or invasive procedure Entry 1 Implant/Explant Implant Implant Identification Description [employer] Lot Number [id number] EKLUTNA W/STRAP [[id number]][F] Seedling Puller FT-BARD/DAVOL Catalog ?# [id number] [F] Size 6.4CM Expiration Date 09/08/19 Usage [...] BLANKET MISTRAL AIR Quantity 1 Aid TORSO [[id number]][F] Fluid/[place] Unit Mistral warming system Setting high/43 degrees Body Site Upper anterior torso Last Modified By: Leidy Villanueva RN 10/14/17 11:38:51 Case Comments Finalized By: Ryanne Jackson CST Document Signatures Signed By: Ryanne Jackson CST 10/17/17 13:38 Normal [facility] Operative Reporton 8 Operative Report Date of [...] The fascia was then closed transversely with acisjvtvloy-pc-iuoiy #1 Prolene sutures incorporating the underlying mesh [...] in stable condition.Juan Waldrop MD, FACSglsDictated: 10/14/2017 #[id number]: 10/16/2017 #[id number]: Juan aWldrop MD, FACS [facility] Comment on above: Result Comment: Elec tronically Signed By: Palma JARA, Juan Chin\.br\Date and Time Signed: 10/17/17 09:20 EST Anesthesia Consultationon Anesthesia Consultation Patient: NURIS JOLLY Age: 32 years Sex: Female : [...] Problem list: All ProblemsArthropathies / SNOMED CT 2933457830 / Confirmedarthritis of the backAsthma / SNOMED CT 078574646 / ConfirmedOvarian cyst / SNOMED CT 804508408 / ConfirmedEndometriosis / SNOMED CT 230127162 / ConfirmedPanic attack / SNOMED CT 978518948 / ConfirmedScoliosis / SNOMED CT 677587728 / Confirmed, Active Problems (6)Arthropathies Asthma Endometriosis Ovarian cyst Panic attack Scoliosis Histories Past Medical History: No active or resolved past medical history items have been selected or recorded. Family History: No family history items have been selected or recorded. Procedure history: tubal ligation on 05/02/2015 at 30 Years.Open reversal of tubal ligation (293440554) on 07/11/2009 at 24 Years.Breast augmentation (4427006374) on 05/02/2008 at 23 Years.Appendectomy (490098350) on 10/17/2007 at 22 Years.tubal ligation on 09/08/2007 at 22 Years.LEEP procedure of cervix (66723248) on 01/04/2005 at 19 Years.Repair of umbilical hernia (59718768).Caesarean section ().Caesarean section ().Caesarean section ().Caesarean section ().Caesarean section ().Anaesthesia for radical surgery on accessory sinuses (873488180). Social History Social & Psychosocial HabitsNo Data [...] Results review: No qualifying data available. Plan [place] [employer] Anesthesiologists (ASA) physical status classification: Class II. Anesthetic Preoperative Plan Anesthesia: General. . Anesthetic plan, risks, benefits, and alternatives discussed with the patient and/or family. Pt. and/or family present and agree to proceed as planned.. Normal [facility] Inpatient Patient Summaryon 10-14-2017 Inpatient [facility] InstructionsPERSON INFORMATION Name: NURIS JOLLY PHYSICIANS Admitting Physician: Juan Waldrop MDAttending Physician: Juan Waldrop MD PCP: NONE, XXXXDischarge Diagnosis: Incisional hernia Comment: PATIENT EDUCATION INFORMATIONInstructions:Cuco t - Post Op Instructions (CUSTOM)Medication Leaflets:Follow up:With: Address: When: Juan Waldrop [address], [address] [id number] [facility] (1[employer] Wine Within 7 to 10 days Comments: Call for any problems. Call for followup appointment MEDICATION LISTFill New Prescriptions:acetaminophen-ox ycodone (Percocet 325 mg-5 mg Tab) 1 tab(s) By Mouth every 4 hours 7 day(s) as needed for as needed for pain Take one tab by mouth every four hours as needed for painComment: Normal [facility] Main OR PACU I Recordon Main OR PACU I Record PACU Phase I Document Type FT Summary Primary Physician: Juan Waldrop MD Finalized Date/Time: 10/14/17 14:36:49 Pt. Name: NURIS JOLLY/Sex: 1985 Female Med Rec #: [id number] Physician: Juan Waldrop MD Financial #: [id number] Pt. Type: A Room/Bed: 02/ Admit/Disch: 10/14/17 09:21:46 - Institution: Case Times [...] By: Hiwot Silver RN 10/14/17 14:36 Normal [facility] Main OR PACU II Recordon Main OR PACU II Record PACU Phase II Document Type FT Summary Primary Physician: Juan Waldrop MD Finalized Date/Time: 10/14/17 19:41:49 Pt. Name: NURIS JOLLY/Sex: 1985 Female Med Rec #: [id number] Physician: Juan Waldrop MD Financial #: [id number] Pt. Type: A Room/Bed: AS02/ Admit/Disch: 10/14/17 [...] By: Era Ingram RN 10/14/17 19:41 Normal [facility] Main OR Preoperative Recordo n 10-14-2017 Main OR Preoperative Record PreOp Document Type FT Summary Primary Physician: Juan Waldrop MD Finalized Date/Time: 10/14/17 12:04:04 Pt. Name: NURIS JOLLY/Sex: 1985 Female Med Rec #: [id number] Physician: Juan Waldrop MD Financial #: [id number] Pt. Type: A Room/Bed: AS02/ Admit/Disch: 10/14/17 09:21:46 - Institution: Case Times PreOp FT [...] By: Leidy Villanueva RN 10/14/17 12:04 Normal [facility] Patient Education - Texton 0 10-14-2017 Patient Education - Text Patient Education Materials [facility] HospitalZana Armendariz MD, FACSPOST OPERATIVE INSTRUCTIONSRegardless of how big [...] be reached by calling:Hospital: or (ask the cellophane bag machine operator for your surgeon)Office: Reviewed: 12-18Revised: 04-23 [facility] Progress Note-Physicianon Progress Note-Physician Patient: NURIS JOLLY Age: 32 years Sex: Female : 1985 Associated Diagnoses: None Author: Juan Waldrop MD Postoperative Information Date/ Time: 10/14/17 13:03:00 Preoperative Diagnosis: Incisional hernia ([id number]-KN K43.2, Discharge, Medical). Postoperative Diagnosis: same. Performed by: Juan Waldrop MD. Specimens Removed: hernia contents. Estimated Blood Loss: 2 ml. Complications: None. Incisional hernia repair with mesh [facility] Comment on above: Result Comment: Elec tronically Signed By: Juan Waldrop MD\.br\Date and Time Signed: 10/14/17 13:05 EST Progress Note-Physician Patient: NURIS JOLLY Age: 32 years Sex: Female : 1985 Associated Diagnoses: None Author: Juan Waldrop MD Basic Information No change in H&P Normal [facility] Comment on above: Result Comment: Elec tronically Signed By: Juan Waldrop MD\.br\Date and Time Signed: 10/14/17 11:28 EST Coding Summary.on 10-12-2017 Coding Summary. CODING DATE: 018 FINAL [facility] STATUS: Home (Routine DC) PAYOR: [employer]atch ADMIT DX: REASON FOR VISIT DX: Z01.818 [...] Curtis Date Saved: 10/12/2017 11:46 am Normal [facility] CBC w/Indiceson 10-11-2017 Erythrocyte distribution width Auto Ratio (RBC) 13.3 % Normal 10.9-14.2 [facility] Comment on above: Performed By: #### 2 [id number] ####[facility] [id number] [place] [address] Erythrocytes (RBC) 4.6 E12/L Normal 4.3-5.9 [facility] Comment on above: Performed By: #### 2 [id number] ####[facility] [address] [place] [address] Hematocrit (HCT) 41.6 % Normal 34.0-46.0 [facility] Comment on above: Performed By: #### 2 [id number] ####[facility] [id number] [place] [address] Hemoglobin mass conc (Bld) 14.7 g/dL Normal 12.0-16.0 [facility] Comment on above: Performed By: #### 2 [id number] ####[address] [address] MCH 32.0 pg Normal 27.0-34.0 [facility] Comment on above: Performed By: #### 2 [id number] ####[address] [address] MCHC mass conc (RBC) 35.4 g/dL Normal 31.4-39.3 [facility] Comment on above: Performed By: #### 2 [id number] ####[place] [id number] MCV 90.3 fL Normal 80.0-100.0 [facility] Comment on above: Performed By: #### 2 328192 ####[address] [address] Platelet mean volume (PMV) 9.0 fL Normal 6.4-10.8 [facility] Comment on above: Performed By: #### 2 [id number] ####[address] [address] Platelets 198.0 E9/L Normal 150.0-500. 0 [facility] Comment on above: Performed By: #### 2 [id number] ####[address] [address] WBC (Leukocytes) 7.3 E9/L Normal 4.0-11.0 [facility] Comment on above: Performed By: #### 2 [id number] ####[address] [address] Vital Signs Date Time Vital Sign Value Performing Clinician Facility 10-19-2023 13:40-0500 Blood Pressure Location Dustin PAL[facility] 10-19-2023 13:40-0500 Diastolic blood pressure 74 mm[Hg] Dustin PALMA [facility] 10-19-2023 13:40-0500 Respiratory rate 16 /min Dustin PAL[facility] 10-19-2023 13:40-0500 Systolic blood pressure 112 mm[Hg] Dustin PAL[facility] 01-04-2023 17:00-0400 Body height 155.57 cm Dawood Mianjulia Other [facility] Other 01-04-2023 17:00-0400 Body mass index (BMI) [Ratio] 21.66 kg/m2 Azemerald [facility] Other [facility] Other 01-04-2023 17:00-0400 Body temperature 98.1 [degF] [facility]wood [facility] Other [facility] Other 01-04-2023 17:00-0400 Body weight 52.44 kg Derrickemerald Mians Other [facility] Other 01-04-2023 17:00-0400 Diastolic blood pressure 72 mm[Hg] [facility]wood [facility] Other [facility] Other 01-04-2023 17:00-0400 Respiratory rate 18 /min Derrickemerald Bowentundes Other [facility] Other 01-04-2023 17:00-0400 SaO2% (BldA) [Mass fraction] 98 % Azemerald Bowentundes Other [facility] Other 01-04-2023 17:00-0400 Systolic blood pressure 110 mm[Hg] Dawood Bowentundes Other [facility] Other 09-11-2022 13:30-0500 Body height 155.57 cm Doreen Booker Other [facility] Other 09-11-2022 13:30-0500 Body mass index (BMI) [Ratio] 21.44 kg/m2 Doreen Booker Other [facility] Other 09-11-2022 13:30-0500 Body temperature 99.2 [degF] Doreen Booker Other [facility] Other 09-11-2022 13:30-0500 Body weight 51.89 kg Doreen Booker Other [facility] Other 09-11-2022 13:30-0500 Diastolic blood pressure 69 mm[Hg] Doreen Booker Other [facility] Other 09-11-2022 13:30-0500 Respiratory rate 18 /min Doreen Booker Other [facility] Other 09-11-2022 13:30-0500 SaO2% (BldA) [Mass fraction] 98 % Doreen Booker Other [facility] Other 09-11-2022 13:30-0500 Systolic blood pressure 113 mm[Hg] Doreen Booker Other [facility] Other Encounters Encounter Date Encounter Type Care Provider Facility Start: 10-28-2023 End: 10-28-2023 ambulatory Dustin PALMA Facility:[facility] Start: 10-28-2023 End: 10-28-2023 Patient encounter procedure Dustin PALMA [facility] Start: 10-19-2023 End: 10-19-2023 ambulatory Dustin Webb MINERVA Facility:[facility] Start: 10-19-2023 End: 10-19-2023 Patient encounter procedure Dustin Webb [facility] Start: 09-28-2023 End: 09-28-2023 ambulatory Yessica Rojas Facility:[facility] Start: 09-28-2023 End: 09-28-2023 ambulatory ENGRAVER JEWELRY-C Yessica Rojas Work Phone: [facility] Work Phone: Start: 09-28-2023 End: 09-28-2023 Departed Referred ENGRAVER JEWELRY-C Yessica Ana Work Phone: [facility] Start: 09-22-2023 ambulatory Dustin PALMA Facility:[facility] Start: 01-07-2023 End: 01-07-2023 ambulatory YESSICA ROJAS Facility:[facility] Start: 01-04-2023 End: 01-04-2023 ambulatory Azemerald Baktundes Other [facility] Other Start: 01-04-2023 Office outpatient ne w 30 minutes Aziz Bakhous [facility] Start: 09-11-2022 End: 09-11-2022 ambulatory Doreen Booker Other Arrington Wellntel Other Start: 09-11-2022 Office outpatient ne w 20 minutes Doreenannie Booker [facility] Start: 02-13-2022 End: 02-14-2022 ambulatory YESSICA ROJAS Facility:[facility] Start: 02-01-2022 End: 02-02-2022 ambulatory YESSICA ROJAS Facility:[facility] Start: 01-25-2022 End: 01-26-[address] JAGDEEP CHANEY . Facility: Start: 10-18-2017 End: 10-19-2017 Ambulatory Juan Waldrop Facility:[facility] Start: 10-14-2017 End: 10-14-2017 Ambulatory Juan Waldrop Facility:[facility] Start: 10-11-2017 End: 10-12-2017 Ambulatory Juan Waldrop Facility:[facility] Procedures Date Procedure Procedure Detail Performing Clinician Appendectomy Dustin HERNÁNDEZL Augmentation mammoplasty Delroy polanco NILL section Dustin NIL L Excision of cyst of ovary Mi stefanie NILL Laparoscopy Dustin NILL Ligation of fallopian tube Nora abebe NILL Loop electrosurgical excision procedure of cervix Dustin NILL Nasal septoplasty Dustin WATTS LL Open reversal of fem wesley sterilization Dustin NILL Reconstruction of nose Panfilo blanca NILL Repair of recurrent umbilical hernia Dustin NILL Repair of umbilical hernia Nora HERNÁNDEZL Tonsillectomy and adenoidectomy Dutsin HERNÁNDEZL Immunizations Immunization Date Immunization Notes Care Provider Fa walter 11-25-2021 SARS-CoV-2 mRNA (hdtdolezqwe-tjlz-pftz ose) vaccine Dustin HERNÁNDEZL [facility] 06-05-2021 SARS-CoV-2 (COVID-19 ) mRNA BNT-162b2 vax Dustin HERNÁNDEZL [facility] 05-11-2021 SARS-CoV-2 (COVID-19 ) mRNA BNT-162b2 vax Dustin NILL [facility] NEGATED: Highlighted row has not occurred!10-19-2023 influenza virus vaccine, unspecified formulation Dustin HERNÁNDEZL [facility] Payers Date Payer Category Payer Self-pay [id number] 2017 Unknown 1984 Unknown [id number] 1984 Unknown [id number] 1984 Unknown [id number] 1984 Unknown [id number] 1984 Unknown [id number] 1984 Unknown [id number] 1959 Blue Cross Blue Shield [id number] 1960 Medicaid [id number] Medicaid [place] Advantage [id number] Unknown [id number] Social History Date Type Detail Facility Unknown if ever smoked [facility] Other Sex Assigned At [facility] Start: 09-26-2018 Tobacco smoking stat NHIS Smoker (finding) [facility] Start: 1985 Sex Assigned At Female F [facility] Start: 10-19-2023 Tobacco smoking status Ex-smoker (fi nding) [facility] Tobacco smoking status Never [facility] Functional Status Date Assessment Result Facility 10-19-2023 Functional Status N/A [facility] Clinical Note 10-23-2023 Note Date & Type Note Facility 10-23-2023 Note Chief Complaint consultation for inguinal hernia and abnormal mammogram HPI Staff 38 year old female presents on consultation from Vika Rojas for right inguinal hernia and abnormal mammogram. Reports she noted inguinal bulge approximately 2 months ago. Reports bulge in intermittent and easily reducible. Reports minimal discomfort with lifting. Denies nausea or vomiting. Reports several month history of breast mass and nipple tenderness. Denies change in size of mass since first noted. Denies skin changes. No nipple discharge or inversion. Mammogram completed at [facility] 09/22/23 cat 4. Fine needle aspiration completed at [facility] 09/28 with suggested benign apocrine lesion. Mother with history of breast cancer, diagnosed age 57. History of Present Illness 38 yo female with h/o migraines, referred for RIH and left breast nodule/tenderness; patient noticed right inguinal bulge 2 months ago, sore at times, no skin changes, no N/V or bowel changes, reduces spontaneously; patient has had multiple abd operations, including x 5 via Pfannenstiel incision; multiple laparoscopies, appendectomy, tubal ligation and reversal, umbilical herniorrhaphy x 2; no asa or NSAID use; former smoker, quit 2 years ago; patient also reports several month h/o of bilateral nipple soreness and sore nodule in left breast, began after changing OCP; patient has h/o breast augmentation; no skin changes, no nipple discharge; normal mammograms; US with 8 mm nodule adjacent to implant capsule; patient had fine need aspiration due to proximity to implant, this revealed benign apocrine cells; fmhx of breast cancer in patient's mother dx at age 57, she reportedly had negative genetic testing for the common mutations. Review of Systems PHQ Score Initial Depression Screen Score: 0 SCORE ROS - Provider Constitutional: no fever, no sweats, no weight loss. Eyes: no glasses, no blurred vision, no visual loss. ENMT: no dentures, no hoarseness, no swallowing difficulties, no hearing loss, no ear infection(s), no nose bleeds. Cardiovascular: normal blood pressure, no chest pain, regular heartbeat, no heart murmur. Respiratory: no shortness of breath, no cough, no asthma, no wheezing. Gastrointestinal: no nausea, no vomiting, no diarrhea, no constipation, no blood in stool, no change in bowel habits, mild abdominal pain, no hepatitis. Genitourinary: no kidney stones, no urine infection, no dysuria. Musculoskeletal: no pain, no weakness. Skin: no changing moles, no rash, no skin lumps. Neurologic: no seizures, no epilepsy, no headache. Psychiatric: no emotional or psychiatric problem. Heme/Lymph: no bleeding problems, no anemia, no blood clots, no transfusions. Allergy/Immunologic: no swollen lymph nodes/glands, no IV drug abuse. Other: Additional ROS info: Except as noted in the above Review of Systems and in the History of Present Illness, all other systems have been reviewed and are negative or noncontributory. Physical Exam Vitals & Measurements RR: 16 BP: 112/74 HT: 61 in HT: 154.9 cm WT: 52.7 kg WT: 115.94 lb BMI: 21.96 HEENT: normal conjunctiva, sclera clear, no scleral icterus, EOM intact, PERRLA. oral mucosa moist without lesions Neck: trachea midline , no mass, symmetric, no thyromegaly or nodules. no adenopathy Respiratory: lungs CTA, respirations non labored. Cardiovascular: regular rate and rhythm, no murmur, , no pedal edema or varicosities. Chest (Breasts): symmetric, no discharge, mild tenderness bilaterally, left breast with small tender nodular areas, no skin changes, no nipple discharge or inversion. Gastrointestinal: soft, non distended, no tenderness, no masses, small reducible epigastric hernia, small reducible hernia RLQ, just below Pfannenstiel incision; no skin changes, unable to palpate fascial defect; normal bs; no HSM. Lymphatic: no cervical adenopathy, no axillary adenopathy, no supraclavicular adenopathy. Musculoskeletal: normal gait, digits and nails without infection, nodes, cyanosis, clubbing. Skin: no rashes, no lesions, no ulcers, no subcutaneous nodules, induration. Psychiatric/Neuro: oriented to time, place, person, judgement normal, affect appropriate for age, insight intact, no focal deficits. Tests: x-rays reviewed, review of old records completed , Assessment/Plan 1. Left breast mass (N63.20: Unspecified lump in the left breast, unspecified quadrant) plan MRI for further evaluation due to limitations of mammogram and US due to dense breast tissue, bilateral implants; also due to increased risk from fmhx of breast cancer; will call patient with results. 2. Hx of bilateral breast implants (Z98.82: Breast implant status) see # 1 3. Family history of breast cancer in mother (Z80.3: Family history of malignant neoplasm of breast) see # 1 4. Bulge in groin area (R19.09: Other intra-abdominal and pelvic swelling, mass and lump) possible incisional hernia verses inguinal, very small defect, unable to palpate; w (more content not included)... [facility] Comment on above: Result Comment: Elec tronically Signed By: MINERVA JARA, Dustin Lee\Date and Time Signed: 10/23/23 10:14 EST Evaluation + Plan note 10-19-2023 Radiology Note Date & Type Note Facility 10-19-2023 Evaluation + Plan note Future Scheduled TestsCT Abdomen/Pelvis w/ Contrast 10/19/23MRI Breast w/o and w/ Contrast, Bilat 10/19/23 [facility] Evaluation note 01-04-2023 Note Date & Type [...] Lab as above prior to next visit [facility] Other Evaluation note 09-11-2022 Note Date & [...] care provider if no improvement of symptoms [facility] Other Evaluation note Note Date & Type Note Facility Evaluation note No assessment information [facility] Work Phone: History general Narrative - Reported Note Date [...] History see above Hospitalization History placental abruption [facility] Other History general Narrative - Reported Note [...] History see above Hospitalization History placental abruption [facility] Other Hospital course Narrative Note Date & Type Note Facility Hospital course Narrative No data available for this section [facility] Discharge instructions Note Date & Type Note Facility Hospital Discharge instructions No data available for this section [facility] Progress note Note Date & Type Note Facility Progress note No data available for this section [facility] Summary Purpose Family History No Family History Records FoundNo Family History Records Found No data available for this section No Family History Records Found No data available for this section No Family History Records Found Advance Directives No Advanced Directives Records Found Advance Directive Response Recorded Date/ Time Advance Directives No January 23 8 8:10am Additional Source Comments INFORMATION SOURCE (unrecogn ized section and content) DATE CREATED AUTHOR 03/06/2018 [place] DATE CREATED AUTHOR AUTHOR'S ORGANIZ ATION 01/18/2023 [facility] DATE CREATED AUTHOR AUTHOR'S ORGANIZ ATION 10/21/2023 [facility] DATE CREATED AUTHOR AUTHOR'S ORGANIZ ATION 04/20/2024 [place] REASON FOR VISIT (unrecogniz ed section and content) SORE THROAT B/A H/ARENAL CKD 3 Care Teams (unrecognized sec tion and content) Team Status: Inactive Member Role Status Dates MARCOS ChristiansonC Attending Provider Active Start: September 28, 2023 End: September 28, 2023 Goals (unrecognized section and content) Goals may be documented in a n alternate section FOR RECORDS PERTAINING TO PATIENTS WHO ARE [...] BE BASED ON THE PRIMARY CLINICAL RECORDS. [employer] provides no warranty or guarantee of the accuracy or completeness of information in this document.
[2024-09-25 08:39] LABS: Basophils Absolute Auto 0.1 10^3/uL (0.0-0.1); Basophils Percent Auto 0.8 % (0.2-2.0); Eosinophils Absolute Auto 0.1 10^3/uL (0.0-0.7); Eosinophils Percent Auto 1.3 % (0.9-7.0); Hematocrit 45.6 % (36.0-48.0); Hemoglobin 15.5 g/dL (12.0-16.0); Immature Granulocytes Abs Auto 0.03 10^3/uL (0.00-0.03); Immature Granulocytes Pct Auto 0.5 % (0.0-0.5); Lymphocytes Absolute Auto 1.6 10^3/uL (1.2-3.8); Lymphocytes Percent Auto 25.2 % (20.5-60.0); Mean Corpuscular Hemoglobin 32.2 pg (26.7-34.0); Mean Corpuscular Volume 94.6 fL (81.0-99.0); Mean Platelet Volume 9.4 fL (9.5-13.5); Monocytes Absolute Auto 0.5 10^3/uL (0.3-0.8); Monocytes Percent Auto 8.3 % (1.7-12.0); Neutrophils Percent Auto 63.9 % (43.0-75.0); Platelet Count 213 10^3/uL (150-450); Red Blood Count 4.82 10^6/uL (4.20-5.40); Red Cell Distribution Width 12.6 % (11.0-15.0); White Blood Count 6.2 10^3/uL (4.0-11.0)
[2024-09-25 08:53] LABS: Estimated Average Glucose 97 mg/dL
[2024-09-25 08:58] LABS: Bilirubin Urine NEGATIVE (NEGATIVE); Blood Urine LARGE (NEGATIVE); Clarity Urine CLEAR (CLEAR); Color Urine YELLOW (YELLOW); Glucose Urine UA NEGATIVE (NEGATIVE); Ketones Urine NEGATIVE (NEGATIVE); Leukocyte Esterase Urine NEGATIVE (NEGATIVE); Nitrite Urine NEGATIVE (NEGATIVE); Protein Urine NEGATIVE (NEG/TRACE); Urobilinogen Urine 0.2 EU/dL (0.2-1.0); pH Urine 6.5 (5.0-9.0)
[2024-09-25 09:01] LABS: WBC Urine NONE SEEN #/HPF (NONE SEEN)
[2024-09-25 09:02] LABS: Bacteria Urine MODERATE #/HPF (NONE SEEN); Mucus Urine NONE SEEN (NONE SEEN); Squamous Epithelial Cell Urine MANY #/LPF (NONE/RARE); Urine Culture Indicated ALREADY ORDERED
[2024-09-25 09:26] LABS: Alanine Aminotransferase 20 U/L (14-59); Albumin Globulin Ratio 1.1; Albumin Level 3.9 g/dL (3.4-5.0); Alkaline Phosphatase 61 U/L (46-116); Anion Gap 8.8; Aspartate Amino Transferase 15 U/L (15-37); Bilirubin Total 0.6 mg/dL (0.2-1.0); Calcium 9.2 mg/dL (8.5-10.1); Carbon Dioxide 30.7 mmol/L (21.0-32.0); Chloride 106 mmol/L (98-107); Chol HDL Ratio 3.5; Cholesterol 177 mg/dL (<=200); Estimated GFR (African America >60 (>=60 mL/min/1.73m^2); Estimated GFR (Non-African Ame 51 (>=60 mL/min/1.73m^2); Free T3 2.58 pg/mL (2.18-3.98); Globulin 3.4 g/dL; Glucose 94 mg/dL (74-106); HDL Cholesterol 50 mg/dL (40-60); LDL Cholesterol Calculated 117.2 mg/dL; Potassium 4.5 mmol/L (3.5-5.1); Sodium 141 mmol/L (136-145); Thyroid Stimulating Hormone 1.597 uIU/mL (0.358-3.740); Total Protein 7.3 g/dL (6.4-8.2); Triglycerides 49 mg/dL (<=150); VLDL CHOLESTEROL 9.8 mg/dL
[2024-09-26 03:08] LABS: Insulin 8.9 uIU/mL (2.6-24.9)
== END 2024-09-25 08:14 | disposition home or self-care (01) ==
LOC: LAB 08:14
PROVIDERS: PCP Nurse Practitioner Family; Visit Provider Nurse Practitioner Family
DX: Z00.00 Encounter for general adult medical examination without abnormal findings (principal); R10.9 Unspecified abdominal pain
CPT/HCPCS: 36415; 80053; 80061; 81001; 83036; 83525; 83540; 84436; 84443; 84481; 85025; 87086

== ENCOUNTER 2024-10-24 12:36 | Outpatient (OUT) | payer BC, SELFPAY ==
--- OUTSIDE RECORDS SUMMARY | 2024-10-24 12:49 | XMS_ITS | CCD ---
Author Organization [facility] Care Team Providers Care Grinder Operator Surface Tool Name Role Phone Waldrop, Juan R. Unavailable [...] HOY ., DR GANNON Consulting Unavailable BOB, YESSICA Primary Care Unavailable BOB, YESSICA Primary Care Unavailable KARSOLANGE ., DR MOTA Admitting Unavailabl e KARSOLANGE ., DR MOTA Consulting Unavailabl e KARASIK ., DR MOTA Attending Unavailabl e BOB YESSICA Admitting Unavailable BOB, YESSICA Primary Care Unavailable YESSICA ROJAS Consulting Unavailable YESSICA ROJAS Attending Unavailable COLIN HDEZ Consulting Unavailable YESSICA ROJAS Attending Unavailable BOB, YESSICA Admitting Unavailable BOB, YESSICA Primary Care Unavailable BOB YESSICA Consulting Unavailable Bob VEGETABLE PREPARER-Arnav Ramires Attending Provider [phone] YESSICA ROJAS Primary Care Physician Yessica Rojas Attending Unavailable Yessica Rojas Admitting Unavailable Unavailable Primary Care Provider UnavailAMERICA Perry Attending Unavailable RYANNE LANDAVERDE Attending Unavailable YESSICA ROJAS Referring Unavailable NILLDustin R Referring Unavailable NILLDustin R Attending Unavailable NILL Dustin R Admitting Unavailable Allergies Allergy Classification Reported Allergen(s) Allergy Type Date of Onset Reaction(s) Facility (1 source) ketamine; Translations: [ketamine] Drug Allergy [facility] Repository (1 source) Compazine Spansule; Translations: [Compazine Spansule] Propensity to adverse reactions (disorder) [facility] (6 sources) Prochlorperazine; Translations: [Compazine] Drug Allergy Anxiety (finding) [facility] Repository (1 source) Prochlorperazine Drug Allergy 05-03-20 [facility] Repository (2 sources) Prochlorperazine Drug Allergy 09-25-19 Anxiety [facility] Medications Current Medications Medication Drug Class(es) Dates Sig (Normalized) Sig (Original) acetaminophen 500 mg oral tablet (2 sources) take 1 tablet by mouth every four hours as needed for pain acetaminophen (Tylenol) 500 MG tablet Take 500 mg by mouth every 4 (four) hours if needed for mild pain Active acetaminophen 325 mg / HYDROcodone bitartrate 5 mg oral tablet (2 sources) Opioid Agonist Start: 09-26-2018 take 1 tablet by mouth every six hours Hydrocodone-Acetami nophen ([place]) 5-325 mg tablet Active 1 TAB PO Q6H 10 3 September 26, 2018 Start: 08-29-2018 End: 09-03-2018 take 1 tablet by mouth every six hours Hydrocodone-Acetaminophen ([place]) 5-325 mg tablet Discontinued 1 TAB PO Q6H 20 5 August 29, 2018 September 03, 2018 12:02am [...] Ordered 1 ml medroxyPROGESTERone acetate 150 mg/ml injection (3 sources) Progestin medroxyPROGESTER one (Depo-Provera) 150 MG/ML injection Inject 150 mg into the shoulder, thigh, or buttocks every 3 (three) months Active Depo-Provera 150 MG/ML 1 mL Intramuscular Active [...] capsule Discontinued 500 MG PO Q8H 21 7 January 22, 2018 11:00pm January 29, 2018 [...] Status: Ordered take 1 tablet by elvin th every two hours as needed, then take [...] breast, unspecified quadrant] Onset: 10-19-2023 Episodic Other and unspecified benign neoplasm (2 sources) Leiomyoma; Translations: [Benign neoplasm of connective and other soft tissue, unspecified] 09-25-2024 Episodic Other congenital anomalies (2 sources) 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 [facility] Breast w/o and w/ Contra st, Bilaton 11-01-2023 MRI Breast w/o and w/ Contrast, Bilat Exam Date/Time: 10/28/2023 15:37 EST Reason for Exam: category 4 left breast mammogram, abnormal US, dense breasts with bilateral implants;Other (please specify) Report [facility] [phone] IMPRESSION: BIRADS 3 PROBABLY BENIGN, SHORT INTERVAL [...] images were generated at the dedicated breast [employer]TV[employer] workstation FINDINGS: Bilateral intact saline implants are [...] VERY IMPORTANT TO YOUR HEALTH. THE CURRENT MALDIVIAN COLLEGE OF RADIOLOGY AND NATIONAL COMPREHENSIVE CANCER [...] Vueway Contrast amount in ml's: [address] [facility] [address] Abdomen/Pelvis w/ Contras ton 10-28-2023 CT [...] Oral contrast amount in ml's: 900 [facility] Consent for Treatmenton 10-13 Consent for Treatment [id number]#1.00TIFF [facility] RAD - MISCon 10-28-2023 RAD - MISC [id number]#1.00TIFF [facility] RAD - MISC [id number]#1.00TIFF [facility] RAD - MRI Screening Formon 0 10-28-2023 RAD - MRI Screening Form [id number]#1.00TIFF [facility] Wallace 09-28-2023 L Specimen: [id number] Rec eived: 09/28/23 Status: WALTER Hanley Num: [id number] Spec Type: Cytology Subm Dr: Yessica Rojas, TRACY Tissues: A BREASTCYSTFLUID (LT BREAST MASS) Procedures: HE/2, Gross/Micro L4, Cyto Prepstain, PAPSTN/7 Age/ Patient Sex Location Account Attending Physician Nuris Saldana M 38/F [facility]ELL [id number] Yessica Rojas CNP SPEC NUM: [id number] RECD: 09/28/23 STATUS: WALTER HANLEY NUM: [id number] SHELL: 09/28/23 DR: Yessica Rojas, TRACY ENTERED: 09/28/[address] [facility] DR: Josey,Louise SPEC TYPE: Cytology DEPT: AMIKOL ART ENTERED BY: [id number] RECV BY: [id number] ORDERED: HE/2, Gross/Micro L4, Cyto Prepstain, PAPSTN/7 [...] tissue for further assessment accordingly as appropriate Specimen: [id number] Received: 09/28/23 Status: WALTER Talon Num: [id number] Spec Type: Cytology Subm Dr: Yessica Rojas, LEGAL BILLING CLERK Tissues: A BREASTCYSTFLUID (LT BREAST MASS) Procedures: HE/2, Gross/Micro L4, Cyto Prepstain, PAPSTN/7 Patient: Nuris Saldana [id number] (Continued) Specimen: [id number] Received: 09/28/23 (Continued) Signed (signature on file) Tho_ Poornima Ruggiero MD 09/30/23 1128 Specimen: [id number] Received: 09/28/23 Status: WALTER Hanley Num: [id number] Spec Type: Cytology Subm Dr: Yessica Rojas CNP Tissues: A BREASTCYSTFLUID (LT BREAST MASS) Procedures: HE/2, Gross/Micro L4, Cyto Prepstain, PAPSTN/7 Patient: Nuris Saldana [id number] (Continued) Specimen: [id number] Received: 09/28/23 (Continued) Gross Description Received is 30 ml pale pink clear fixed fluid for cytology said to have been obtained as Us guided FNA. Thin prep and cell block preparations are prepared for microscopic examination. Also received are 6 smeared slides for microscopic examination.(CC/mi) CPT Codes 25705, 56915 Specimen: [id number] Received: 09/28/23-1440 Status: WALTER Hanley Num: [id number] Spec Type: Cytology Subm Dr: Yessica oRjas CNP Tissues: A BREASTCYSTFLUID (LT BREAST MASS) Procedures: HE/2, Gross/Micro L4, Cyto Prepstain, PAPSTN/7 Patient: Nuris Saldana [id number] (Continued) Signed (signature on file) Poornima Ruggiero MD 09/30/23 1128 [facility] PAP ACOG PANEL 2: 30 to 65on 01-17-2023 . . Normal [facility] Comment on above: Result Comment: Performed at: [facility] Performed By: #### [id number] #### [facility] [address] [address] [address] Debo Ruggiero Age Gdln ACOG Testing 30-65 Normal [facility] Comment on above: Performed By: #### [id number] #### [facility] [address] [place] [address] Dr. Debo Ruggiero DIAGNOSIS: Comment Normal [facility] Comment on above: Result Comment: NEGATIVE FOR INTRAEPITHE LIAL LESION OR MALIGNANCY. Performed at: [facility] Performed By: #### [id number] #### [facility] [address] [place] [address] Dr. Debo Ruggiero HPV Aptima Negative Normal Negative [facility] Comment on above: Result Comment: This nucleic acid amplif ication test detects fourteen high-risk HPV types (16,18,31,33,35,39,45,51,52,56,58,59,66,68) without differentiation. Performed at: =G Performed By: #### [id number] #### [facility] [address] [place] [address] Dr. Debo Ruggiero HPV Genotype Reflex Comment Normal [facility] Comment on above: Result Comment: Criteria not met, HPV Ge notype not performed. Performed at: [facility] Performed By: #### [id number] #### [facility] [address] [place] [address] Dr. Debo Ruggiero Methodology: Comment Normal [facility] Comment on above: Result Comment: This liquid based ThinPr ep(R) pap test was screened with the use of an image guided system. Performed at: [facility] Performed By: #### [id number] #### [facility] [address] [place] [address] Dr. Debo Ruggiero Note: Comment Normal [facility] Comment on above: Result Comment: The Pap smear is a scree patel test designed to aid in the detection of premalignant and malignant conditions of the uterine cervix. It is not a diagnostic procedure and should not be used as the sole means of detecting cervical cancer. Both false-positive and false-negative reports do occur. . Performed at: [facility] Performed By: #### [id number] #### [facility] [address] [place] [address] Dr. Debo Ruggiero Performed by: Comment Normal [facility] Comment on above: Result Comment: Sita Lemus, Cytotec hnologist (ASCP) Performed at: [facility] Performed By: #### 4 [id number] #### [facility] [address] [address] [address] Debo Ruggiero Specimen adequacy: Comment Normal [facility] Comment on above: Result Comment: Satisfactory for evaluat ion. No endocervical component is identified. Performed at: [facility] Performed By: #### 4 [id number] #### [facility] [address] [address] [address] Debo Ruggiero COVID/FLU/RSV RT-PCRon 09-11 SARS-CoV-2 (COVID-19) RNA CAMILA+probe Ql (Unsp spec) Negative [employer] Other COVID/FLU/RSV RT-PCR Negative [employer] Other Quick Strepon 09-11-2022 S. pyogenes Org specific cx Ql (Throat) Negative [employer] Other Quick Strep [employer] Other US KIDNEYS BLADDERon 02-14- 022 US KIDNEYS BLADDER Ultrasound kidneys, bilateral [...] COLIN HDEZ Date: 2022-02-14 21:18 Normal [facility] PROF 14(COMP METB)on 022 Albumin [Mass/Vol] 4.0 g/dL Normal 3.4-5.0 [facility] Comment on above: Performed By: #### CMP #### [facility] [address] [place] [address] Dr. Debo Ruggiero Albumin/Globuli n [Mass ratio] 1.1 {ratio} Normal [facility] Comment on above: Performed By: #### CMP #### [facility] [address] [place] [address] Dr. Debo Ruggiero ALP [Catalytic activity/Vol] 65 U/L Normal 46-116 [facility] Comment on above: Performed By: #### CMP #### [facility] [address] [place] [address] Dr. Debo Ruggiero ALT [Catalytic activity/Vol] 19 U/L Normal 14-59 [facility] Comment on above: Performed By: #### CMP #### [facility] [address] [place] [address] Dr. Debo Ruggiero Anion gap [Moles/Vol] 12.6 mmol/L Normal [facility] Comment on above: Performed By: #### CMP #### [facility] [address] [place] [address] Dr. Debo Ruggiero AST [Catalytic activity/Vol] 15 U/L Normal 15-37 [facility] Comment on above: Performed By: #### CMP #### [facility] [address] [place] [address] Dr. Debo Ruggiero Bilirubin [Mass/Vol] 0.6 mg/dL Normal 0.2-1.0 [facility] Comment on above: Performed By: #### CMP #### [facility] [address] [place] [address] Dr. Debo Ruggiero Calcium [Mass/Vol] 9.2 mg/dL Normal 8.5-10.1 [facility] Comment on above: Performed By: #### CMP #### [facility] [address] [address] [address] Debo Ruggiero Chloride [Moles/Vol] 103 mmol/L Normal 98-107 [facility] Comment on above: Performed By: #### CMP #### [facility] [address] [address] [address] Debo Ruggiero CO2 [Moles/Vol] 29.1 mmol/L Normal 21.0-32.0 [facility] Comment on above: Performed By: #### CMP #### [facility] [address] [address] [address] Debo Ruggiero Creatinine [Mass/Vol] 1.18 mg/dL Critically high 0.55-1.02 [facility] Comment on above: Performed By: #### CMP #### [facility] [address] [place] [address] Dr. Debo Ruggiero EGFR-AF MALDIVIAN >60 Normal >=60 [facility] Comment on above: Performed By: #### CMP #### [facility] [address] [address] [address] Debo Ruggiero EGFR-NON AF MALDIVIAN 52 mL/min/1.73m2 Critically low >=60 [facility] Comment on above: Performed By: #### CMP #### [facility] [address] [address] [address] Debo Ruggiero Globulin (S) [Mass/Vol] 3.8 g/dL Normal [facility] Comment on above: Performed By: #### CMP #### [facility] [address] [address] [address] Debo Ruggiero Glucose [Mass/Vol] 81 mg/dL Normal 74-106 [facility] Comment on above: Performed By: #### CMP #### [facility] [address] [address] [address] Debo Ruggiero Potassium [Moles/Vol] 4.7 mmol/L Normal 3.5-5.1 [facility] Comment on above: Performed By: #### CMP #### [facility] [address] [address] [address] Debo Ruggiero Protein [Mass/Vol] 7.8 g/dL Normal 6.4-8.2 [facility] Comment on above: Performed By: #### CMP #### [facility] [address] [place] [address] Dr. Debo Rgugiero Sodium [Moles/Vol] 140 mmol/L Normal 136-145 [facility] Comment on above: Performed By: #### CMP #### [facility] [address] [place] [address] Dr. Dbeo Ruggiero Urea nitrogen [Mass/Vol] 19.0 mg/dL Critically high 7.0-18.0 [facility] Comment on above: Performed By: #### CMP #### [facility] [address] [place] [address] Dr. Debo Ruggiero Urea nitrogen/Creati nine [Mass ratio] 16.1 mg/mg Normal [facility] Comment on above: Performed By: #### CMP #### [facility] [address] [place] [address] Dr. Debo Ruggiero PROF 14(COMP METB)on 022 Albumin [Mass/Vol] 4.1 g/dL Normal 3.4-5.0 [facility] Comment on above: Performed By: #### CMP #### [facility] [address] [place] [address] Dr. Debo Ruggiero Albumin/Globuli n [Mass ratio] 1.2 {ratio} Normal [facility] Comment on above: Performed By: #### CMP #### [facility] [address] [place] [address] Dr. Debo Ruggiero ALP [Catalytic activity/Vol] 58 U/L Normal 46-116 [facility] Comment on above: Performed By: #### CMP #### [facility] [address] [place] [address] Dr. Debo Ruggiero ALT [Catalytic activity/Vol] 19 U/L Normal 14-59 [facility] Comment on above: Performed By: #### CMP #### [facility] [address] [place] [address] Dr. Debo Ruggiero Anion gap [Moles/Vol] 11.7 mmol/L Normal [facility] Comment on above: Performed By: #### CMP #### [facility] [address] [address] [address] Debo Ruggiero AST [Catalytic activity/Vol] 15 U/L Normal 15-37 [facility] Comment on above: Performed By: #### CMP #### [facility] [address] [address] [address] Debo Ruggiero Bilirubin [Mass/Vol] 0.6 mg/dL Normal 0.2-1.0 [facility] Comment on above: Performed By: #### CMP #### [facility] [address] [address] [address] Debo Ruggiero Calcium [Mass/Vol] 8.6 mg/dL Normal 8.5-10.1 [facility] Comment on above: Performed By: #### CMP #### [facility] [address] [place] [address] Dr. Debo Ruggiero Chloride [Moles/Vol] 106 mmol/L Normal 98-107 [facility] Comment on above: Performed By: #### CMP #### [facility] [address] [place] [address] Dr. Debo Ruggiero CO2 [Moles/Vol] 28.3 mmol/L Normal 21.0-32.0 [facility] Comment on above: Performed By: #### CMP #### [facility] [address] [place] [address] Dr. Debo Ruggiero Creatinine [Mass/Vol] 1.35 mg/dL Critically high 0.55-1.02 [facility] Comment on above: Performed By: #### CMP #### [facility] [address] [place] [address] Dr. Debo Ruggiero EGFR-AF MALDIVIAN 53 mL/min/1.73m2 Critically low >=60 [facility] Comment on above: Performed By: #### CMP #### [facility] [address] [address] [address] Debo Ruggiero EGFR-NON AF MALDIVIAN 44 mL/min/1.73m2 Critically low >=60 [facility] Comment on above: Performed By: #### CMP #### [facility] [address] [address] [address] Debo Ruggiero Globulin (S) [Mass/Vol] 3.4 g/dL Normal [facility] Comment on above: Performed By: #### CMP #### [facility] [address] [place] [address] Dr. Debo Ruggiero Glucose [Mass/Vol] 82 mg/dL Normal 74-106 [facility] Comment on above: Performed By: #### CMP #### [facility] [address] [address] [address] Debo Ruggiero Potassium [Moles/Vol] 4.0 mmol/L Normal 3.5-5.1 [facility] Comment on above: Performed By: #### CMP #### [facility] [address] [place] [address] Dr. Debo Ruggiero Protein [Mass/Vol] 7.5 g/dL Normal 6.4-8.2 [facility] Comment on above: Performed By: #### CMP #### [facility] [address] [place] [address] Dr. Debo Ruggiero Sodium [Moles/Vol] 142 mmol/L Normal 136-145 [facility] Comment on above: Performed By: #### CMP #### [facility] [address] [place] [address] Dr. Debo Ruggiero Urea nitrogen [Mass/Vol] 18.0 mg/dL Normal 7.0-18.0 [facility] Comment on above: Performed By: #### CMP #### [facility] [address] [place] [address] Dr. Debo Ruggiero Urea nitrogen/Creati nine [Mass ratio] 13.3 mg/mg Normal [facility] Comment on above: Performed By: #### CMP #### [facility] [address] [place] [address] Dr. Debo Ruggiero Anesthesia Consultationon Anesthesia Consultation [...] Problem list: All ProblemsArthropathies / SNOMED CT 3077018549 / Confirmedarthritis of the backAsthma / SNOMED CT 018944739 / ConfirmedOvarian cyst / SNOMED CT 711896230 / ConfirmedEndometriosis / SNOMED CT 314157536 / ConfirmedPanic attack / SNOMED CT 043338832 / ConfirmedScoliosis / SNOMED CT 299311963 / Confirmed Physical Examination Intake and Output Denies significant n/v and is tolerating p.o. No qualifying data available Respiratory: Adequate air exchange with shinto of preoperative function.. Cardiovascular: Cardiovascular function is stable and has returned to preoperative levels.. Neurologic: Pt has returned to preoperative baseline.. Review / Management Condition: Stable. Assessment Anesthetic outcome No anesthetic complications noted. Plan Transfer/ Discharge: Patient can be discharged from PACU when criteria met. Condition good. [facility] Coding Summary.on 10-19-2017 Coding Summary. CODING DATE: 018 FINAL [facility] STATUS: Home (Routine DC) PAYOR: Nemesio [...] Curtis Date Saved: 10/19/2017 10:15 am [facility] US LE Venous Duplex Righton 10-18-2017 US [...] Resendez MD Transcribed by: HONG Technologist: JAYLA [facility] Coding Summary.on 10-17-2017 Coding Summary. CODING DATE: 018 [facility] STATUS: Home (Routine DC) PAYOR: Nemesio APC DESCRIPTION 5361 Level 1 Laparoscopy and Related Services ADMIT DX: REASON FOR VISIT DX: K43.2 Incisional hernia without obstruction or gangrene FINAL DX: PRINCIPAL: K43.0 Incisional hernia with obstruction, without gangrene SECONDARY: PYMT PROC APC STAT DESCRIPTION DOCTOR NAME DATE 53691 5361 J1 Repair recurrent Juan Waldrop MD 10/14/2017 incisional or ventral hernia; incarcerated or strangulated 95820 Implantation of mesh or Juan Waldrop MD 10/14/2017 other prosthesis for open incisional or ventral hernia repair or mesh for closure of debridement for necrotizing soft tissue infection (List separately in addition to code for the incisional or ventral hernia repair) 16464 Anesthesia for hernia Juan Waldrop MD 10/14/2017 [...] Skinner Date Saved: 10/17/2017 04:26 pm [facility] Main OR Intraoperative Recor don 10-17-2017 Main OR Intraoperative Record IntraOp Document Type FT Summary Primary Physician: Juan Waldrop MD Finalized Date/Time: 10/17/17 13:38:27 Pt. Name: NURIS JOLLY Nora Whitman/Sex: 1985 Female Med Rec #: [id number] Physician: Juan Waldrop MD Financial #: [id number] Pt. Type: A Room/Bed: 10/13 Admit/Disch: 10/14/17 09:21:00 - 10/14/17 16:00:00 Institution: Case Times FT Entry 1 Patient Times In Room 10/14/17 11:39:00 Out Room 10/14/17 12:57:00 Procedure Times Start 10/14/17 12:00:00 Stop 10/14/17 12:53:00 Anesthesia Times Start 10/14/17 11:39:00 Stop 10/14/17 12:57:00 Last Modified By: Ryanne Jackson CST 10/14/17 13:01:25 General Comments: 10/17/2017 Chart opened to review and send charges Jessica block feeder Case Attendance FT Entry 1 Entry 2 Entry 3 Case Attendee Fabiola Cooper MD, Juan Jenkins ANALYTICS INTERN/, Flavia Role Performed Anesthesiologist Surgeon - Primary ANALYTICS INTERN/SA Drafter Heating And Ventilating Time In 10/14/17 11:55:00 10/14/17 11:52:00 10/14/17 11:39:00 Time Out 10/14/17 12:57:00 10/14/17 12:55:00 10/14/17 12:57:00 Procedure INCISIONAL HERNIA INCISIONAL HERNIA INCISIONAL HERNIA REPAIR(.) REPAIR(.) REPAIR(.) Comments Dr. Juarez supervising Amanda Torres MS 4 LUNCH [id number] scrubbed for case Last Modified By: Rich JIM, Leidy 10/14/17 Rich JIM, Leidy 10/14/17 Rich RN, Leidy 10/14/17 13:01:34 13:01:34 13:01:34 Entry 4 Entry 5 Entry 6 Case Attendee Rich JIM, Leidy Boston RN, Shade Shoemaker CST Role Performed Test Kitchen Home Economist - Primary Test Kitchen Home Economist - Relief Scrub - Primary Time In 10/14/17 11:39:00 10/14/17 11:39:00 10/14/17 11:39:00 Time Out 10/14/17 12:57:00 10/14/17 12:30:00 10/14/17 12:57:00 Procedure INCISIONAL HERNIA INCISIONAL HERNIA INCISIONAL HERNIA REPAIR(.) REPAIR(.) REPAIR(.) Comments out for lunch [id number] LUNCH [id number] Last Modified By: Rich RN, Leidy 10/14/17 [...] Palma JARA, Juan Chin, Given Participants Gregory DENISE/Flavia ARANA Farris RN, Marce M, Kelly ANALYTICS INTERN, Shade M, Bladimir CAA, Fabiola C, Larry Jr. DO, Carlos Time Out Complete 10/14/17 [...] Procedure Yes Primary Surgeon Juan Waldrop MD 10/14/17 12:00:00 Stop 10/14/17 12:53:00 Anesthesia Type [...] and tissue Entry 1 Skin Integrity Intact, Carlos, Warm, and Skin Abnormality No Dry Outcomes [...] Yes By Carlos Juarez Jr., DO, Timmons ANALYTICS INTERN/SA, Darvin Alejandro RN, Karen M Outcomes Met? Yes Last Modified By: Leidy [...] 10/14/17 12:42:00 By Marce Boston RN, Jamison ANALYTICS INTERN, Jamison Vega ANALYTICS INTERN, Kelly Vega CST, Shade Villanueva RN, Leidy [...] RN Patient Status Stable Skin. Condition Intact, Carlos, Warm, and Dry Airway Maintenance Oxygen in [...] Items DRESSING GAUZE 4 X 4 10'S [658712][F] Site and Details abdomen: mastisol, Outcomes Met? [...] safely administered during the perioperative period For Mireles-Stevens please see scanned medication reconcilliation form for medications used at the field during the procedure. Implant Log FT Pre-Care Text: Records devices implanted during the operative or invasive procedure Entry 1 Implant/Explant Implant Implant Identification Description [employer] Lot Number [id number] HAVASUPAI W/STRAP [[id number]][F] Loan Coordinator FT-BARD/DAVOL Catalog ?# [id number] [F] Size 6.4CM Expiration Date 09/08/19 Usage [...] BLANKET MISTRAL AIR Quantity 1 Aid TORSO [[id number]][F] Fluid/Sparta Unit Mistral warming system Setting high/43 degrees Body Site Upper anterior torso Last Modified By: Leidy Villanueva RN 10/14/17 11:38:51 Case Comments Finalized By: Ryanne Jackson CST Document Signatures Signed By: Ryanne Jackson CST 10/17/17 13:38 Normal [facility] Operative Reporton [id number] Operative Report Date of Surgery: 10/14/2017SURGEON: [...] The fascia was then closed transversely with [id number] #1 Prolene sutures incorporating the underlying mesh [...] in stable condition.Juan Waldrop MD, FACSglsDictated: 10/14/2017 #[id number]: 10/16/2017 #[id number]: Juan Waldrop MD, FACS [facility] Comment on above: Result Comment: Electronically [...] Problem list: All ProblemsArthropathies / SNOMED CT 9717045440 / Confirmedarthritis of the backAsthma / SNOMED CT 543010581 / ConfirmedOvarian cyst / SNOMED CT 135234109 / ConfirmedEndometriosis / SNOMED CT 658600485 / ConfirmedPanic attack / SNOMED CT 626625450 / ConfirmedScoliosis / SNOMED CT 518790868 / Confirmed, Active Problems (6)Arthropathies Asthma Endometriosis Ovarian cyst Panic attack Scoliosis Histories Past Medical History: No active or resolved past medical history items have been selected or recorded. Family History: No family history items have been selected or recorded. Procedure history: tubal ligation on 05/02/2015 at 30 Years.Open reversal of tubal ligation (800516933) on 07/11/2009 at 24 Years.Breast augmentation ([id number]) on 05/02/2008 at 23 Years.Appendectomy ([id number]) on 10/17/2007 at 22 Years.tubal ligation on 09/08/2007 at 22 Years.LEEP procedure of cervix (59460623) on 01/04/2005 at 19 Years.Repair of umbilical hernia ([id number]).Caesarean section ().Caesarean section ().Caesarean section ().Caesarean section ().Caesarean section ().Anaesthesia for radical surgery on accessory sinuses ([id number]). Social History Social & Psychosocial HabitsNo Data [...] Results review: No qualifying data available. Plan [place] [employer] Anesthesiologists (ASA) physical status classification: Class II. Anesthetic Preoperative Plan Anesthesia: General. . Anesthetic plan, risks, benefits, and alternatives discussed with the patient and/or family. Pt. and/or family present and agree to proceed as planned.. [facility] Patient Summaryon 10-14-2017 [facility] Inst[facility] INFORMATION Name: NURIS JOLLY PHYSICIANS Admitting Physician: Juan Waldrop MDAttending Physician: Juan Waldrop MD PCP: NONE, XXXXDischarge Diagnosis: Incisional hernia Comment: PATIENT EDUCATION INFORMATIONInstructions:Palma - Post Op Instructions (CUSTOM)Medication Leaflets:Follow up:With: Address: When: Juan Mars [facility], [address] [place] [address] [facility] (1) Within 7 to 10 days Comments: Call for any problems. Call for followup appointment MEDICATION LISTFill New Prescriptions:acetaminophen-oxyc odone (Percocet 325 mg-5 mg Tab) 1 tab(s) By Mouth every 4 hours 7 day(s) as needed for as needed for pain Take one tab by mouth every four hours as needed for painComment: [facility] PACU I [facility] Main OR PACU I Record PACU Phase I Document Type FT Summary Primary Physician: Juan Waldrop MD Finalized Date/Time: 10/14/17 14:36:49 Pt. Name: NURIS JOLLY Nora Whitman/Sex: 1985 Female Med Rec #: [id number] Physician: Juan Waldrop MD Financial #: [id number] Pt. Type: A Room/Bed: Admit/Disch: 10/14/17 09:21:46 - Institution: Case Times [...] By: Hiwot Silver RN 10/14/17 14:36 [facility] Main OR PACU II Recordon Main OR PACU II Record PACU Phase II Document Type FT Summary Primary Physician: Juan Waldrop MD Finalized Date/Time: 10/14/17 19:41:49 Pt. Name: NURIS JOLLY/Sex: 1985 Female Med Rec #: [id number] Physician: Juan Waldrop MD Financial #: [id number] Pt. Type: A Room/Bed: Admit/Disch: 10/14/17 09:21:46 - Institution: Case Times [...] By: Era Ingram RN 10/14/17 19:41 [facility] Main OR Preoperative Recordo n 10-14-2017 Main OR Preoperative Record PreOp Document Type FT Summary Primary Physician: Juan Waldrop MD Finalized Date/Time: 10/14/17 12:04:04 Pt. Name: SAHNAE NURISAbdi Whitman/Sex: 1985 Female Med Rec #: [id number] Physician: Juan Waldrop MD Financial #: [id number] Pt. Type: A Room/Bed: AS02/ Admit/Disch: 10/14/17 [...] By: Leidy Villanueva RN 10/14/17 12:04 Normal [facility] Patient Education - Texton 0 10-14-2017 Patient Education - Text Patient Education Materials Follows:[facility] MD, FACSPOST OPERATIVE INSTRUCTIONSRegardless of how big [...] be reached by calling:Hospital: or (ask the shell press operator for your surgeon)Office: Reviewed: 12-18Revised: 04-23 [facility] Progress Note-Physicianon Progress Note-Physician Patient: NURIS JOLLY Age: 32 years Sex: Female : 1985 Associated Diagnoses: None Author: Juan Waldrop MD Postoperative Information Date/ Time: 10/14/17 13:03:00 Preoperative Diagnosis: Incisional hernia (ION58-DG K43.2, Discharge, Medical). Postoperative Diagnosis: same. Performed by: Juan Waldrop MD. Specimens Removed: hernia contents. Estimated Blood Loss: 2 ml. Complications: None. Incisional hernia repair with mesh [facility] Comment on above: Result Comment: Electronically Signed By : Juan Waldrop MD\.br\Date and Time Signed: 10/14/17 13:05 EST Progress Note-Physician Patient: NURIS OJLLY Age: 32 years Sex: Female : 1985 Associated Diagnoses: None Author: Juan Waldrop MD Basic Information No change in H&P [facility] Comment on above: Result Comment: Electronically Signed By : [place] JARA, Juan Agudelo.alesha\Date and Time Signed: 10/14/17 11:28 EST Coding Summary.on 10-12-2017 Coding Summary. CODING DATE: 018 FINAL [facility] STATUS: Home (Routine DC) PAYOR: Nemesio ADMIT DX: REASON FOR VISIT DX: Z01.818 [...] Curtis Date Saved: 10/12/2017 11:46 am [facility] CBC w/Indiceson 10-11-2017 Erythrocyte distribution width Auto Ratio (RBC) 13.3 % Normal 10.9-14.2 [facility] Comment on above: Performed By: #### [id number] ####[facility] [address] [place] [address] Erythrocytes (RBC) 4.6 E12/L Normal 4.3-5.9 [facility] Comment on above: Performed By: #### [id number] ####[facility] [address] [place] [address] Hematocrit (HCT) 41.6 % Normal 34.0-46.0 [facility] Comment on above: Performed By: #### [id number] ####[facility] [address] [place] [address] Hemoglobin mass conc (Bld) 14.7 g/dL Normal 12.0-16.0 [facility] Comment on above: Performed By: #### [id number] ####[facility] [address] [place] [address] MCH 32.0 pg Normal 27.0-34.0 [facility] Comment on above: Performed By: #### [id number] ####[facility] [address] [place] [address] MCHC mass conc (RBC) 35.4 g/dL Normal 31.4-39.3 [facility] Comment on above: Performed By: #### [id number] ####[facility] [address] [place] [address] MCV 90.3 fL Normal 80.0-100.0 [facility] Comment on above: Performed By: #### [id number] ####[facility] [address] [place] [address] Platelet mean volume (PMV) 9.0 fL Normal 6.4-10.8 [facility] Comment on above: Performed By: #### [id number] ####[facility] [address] [place] [address] Platelets 198.0 E9/L Normal 150.0-500. 0 [facility] Comment on above: Performed By: #### [id number] ####[facility] [address] [place] [address] WBC (Leukocytes) 7.3 E9/L Normal 4.0-11.0 [facility] Comment on above: Performed By: #### [id number] ####[facility] [address] [place] [address] Vital Signs Date Time Vital Sign Value Performing Clinician Facility 09-25-2024 08:57-0500 Body height 154.9 cm America SHIPLEY Work Phone: [facility] 09-25-2024 08:57-0500 Body mass index (BMI) [Ratio] 21.73 kg/m2 America SHIPLEY Work Phone: [facility] 09-25-2024 08:57-0500 Body weight 52.16 kg America SHIPLEY Work Phone: [facility] 09-25-2024 08:57-0500 Diastolic blood pressure 70 mm[Hg] America SHIPLEY Work Phone: [facility] 09-25-2024 08:57-0500 Systolic blood pressure 108 mm[Hg] America SHIPLEY Work Phone: [facility] 10-19-2023 13:40-0500 Blood Pressure Location Dustin [facility] 10-19-2023 13:40-0500 Diastolic blood pressure 74 mm[Hg] Dustin HERNÁNDEZL [facility] 10-19-2023 13:40-0500 Respiratory rate 16 /min Dustin HERNÁNDEZL [facility] 10-19-2023 13:40-0500 Systolic blood pressure 112 mm[Hg] Dustin [facility] 01-04-2023 17:00-0400 Body height 155.57 cm Dawood Diaz Other [facility] Other 01-04-2023 17:00-0400 Body mass index (BMI) [Ratio] 21.66 kg/m2 Dawood Diaz Other [facility] Other 01-04-2023 17:00-0400 Body temperature 98.1 [degF] Dawood Diaz Other [facility] Other 01-04-2023 17:00-0400 Body weight 52.44 kg Dawood Diaz Other [facility] Other 01-04-2023 17:00-0400 Diastolic blood pressure 72 mm[Hg] Dawood Diaz Other [facility] Other 01-04-2023 17:00-0400 Respiratory rate 18 /min Dawood Diaz Other [facility] Other 01-04-2023 17:00-0400 SaO2% (BldA) [Mass fraction] 98 % Dawood Diaz Other [facility] Other 01-04-2023 17:00-0400 Systolic blood pressure 110 mm[Hg] Dawood Diaz Other [facility] Other 09-11-2022 13:30-0500 Body height 155.57 cm Doreen Ortizault Other [facility] Other 09-11-2022 13:30-0500 Body mass index (BMI) [Ratio] 21.44 kg/m2 Doreen Ortizault Other [facility] Other 09-11-2022 13:30-0500 Body temperature 99.2 [degF] Doreen Ade Other [facility] Other 09-11-2022 13:30-0500 Body weight 51.89 kg Doreen Ortizault Other [facility] Other 09-11-2022 13:30-0500 Diastolic blood pressure 69 mm[Hg] Doreen Ortizault Other [facility] Other 09-11-2022 13:30-0500 Respiratory rate 18 /min Doreen Ade Other [facility] Other 09-11-2022 13:30-0500 SaO2% (BldA) [Mass fraction] 98 % Doreen Ade Other [facility] Other 09-11-2022 13:30-0500 Systolic blood pressure 113 mm[Hg] Doreen Ortizault Other [facility] Other Encounters Encounter Date Encounter Type Care Provider Facility Start: 11-12-2024 ambulatory RYANNE LANDAVERDE Facili ty:[facility] Start: 09-28-2024 ambulatory RYANNE LANDAVERDE Facility :[facility] Start: 09-25-2024 End: 09-25-2024 Bamboo flowsheet America SHIPLEY Work Phone: [facility] Start: 09-25-2024 End: 09-25-2024 Bamboo flowsheet America SHIPLEY Work Phone: [facility] Start: 09-25-2024 End: 09-25-2024 ambulatory AMERICA SUMMERS Not Available Start: 09-25-2024 End: 09-25-2024 Office outpatient visit 15 minutes America SHIPLEY Work Phone: [facility] Comment on above: Vaginal bleeding; Fibroid Start: 10-28-2023 End: 10-28-2023 ambulatory Dustin PALMA Facility:[facility] Start: 10-28-2023 End: 10-28-2023 Patient encounter procedure Dustin PALMA [facility] Start: 10-19-2023 End: 10-19-2023 Patient encounter procedure Dustin PALMA [facility] Start: 09-28-2023 End: 09-28-2023 ambulatory Yessica Rojas Facility:[facility] Start: 09-28-2023 End: 09-28-2023 ambulatory VEGETABLE PREPARER-C Yessica Rojas Work Phone: [facility] Work Phone: Start: 09-28-2023 End: 09-28-2023 Departed Referred VEGETABLE PREPARER-C Yessica Rojas Work Phone: [facility] Start: 01-07-2023 End: 01-07-2023 ambulatory YESSICA ROJAS Facility:[facility] Start: 01-04-2023 End: 01-04-2023 ambulatory Aziz Bakhous Other [facility] Other Start: 01-04-2023 Office outpatient ne w 30 minutes Dawood Diaz [facility] Start: 09-11-2022 End: 09-11-2022 ambulatory Doreen Ade Other [employer] Other Start: 09-11-2022 Office outpatient ne w 20 minutes Doreen Booker [facility] Start: 02-13-2022 End: 02-14-2022 ambulatory YESSICA ROJAS Facility: Start: 02-01-2022 End: 02-02-2022 ambulatory YESSICA ROJAS Facility: Start: 01-25-2022 End: 01-26-[address] JAGDEEP HAYS . Facility: Start: 10-18-2017 End: 10-19-2017 Ambulatory Juan Waldrop Facility:[facility] Start: 10-14-2017 End: 10-14-2017 Ambulatory Juan Waldrop Facility:[facility] Start: 10-11-2017 End: 10-12-2017 Ambulatory Juan Waldrop Facility:[facility] Procedures Date Procedure Procedure Detail Performing Clinician Appendectomy Dustin PALMA Augmentation mammoplasty Delroy hablanca HERNÁNDEZL section Dustin HERNÁNDEZ L Excision of cyst of ovary Mi stefanie HERNÁNDEZL Laparoscopy Dustin HERNÁNDEZL Ligation of fallopian tube Nora HERNÁNDEZL Loop electrosurgical excision procedure of cervix Dustin HERNÁNDEZL Nasal septoplasty Dustin NI LL Open reversal of fem wesley sterilization Dustin NILL Reconstruction of nose Panfilo HERNÁNDEZL Repair of recurrent umbilical hernia Dustin HERNÁNDEZL Repair of umbilical hernia Nora HERNÁNDEZL Tonsillectomy and adenoidectomy Dustin HERNÁNDEZZack Plan of Treatment Date Care Activity Detail Author Start: 05-13-2024 Influenza vaccination Influenza Vacc ine (#1) [facility] Start: 2024 Screening for malign ant neoplasm of breast Mammogram [facility] Start: 2014 Screening for malign ant neoplasm of cervix [facility] Start: 2005 Screening for malign ant neoplasm of cervix Pap Smear [facility] Immunizations Immunization Date Immunization Notes Care Provider Fa cili 06-21-2022 influenza virus vaccine, unspecified formulation America SHIPLEY Work Phone: [facility] 11-25-2021 SARS-CoV-2 mRNA (rpttlvzveve-ijiq-yap addison) vaccine Dustin HERNÁNDEZZack [facility] 06-05-2021 SARS-CoV-2 (COVID-19 ) mRNA BNT-162b2 vax Dustin PALMA [facility] 05-11-2021 SARS-CoV-2 (COVID-19 ) mRNA BNT-162b2 vax Dustin PALMA [facility] NEGATED: Highlighted row has not occurred!10-19-2023 influenza virus vaccine, unspecified formulation Dustin HERNÁNDEZZack [facility] [place] Payers Date Payer Category Payer Self-pay [id number] 2019 [facility] er [id number] 2017 Unknown 1985 Unknown [id number]. 593 1985 Unknown [id number] [id number]. 593 1985 Unknown [id number] [id number]. 593 1985 Unknown [id number] [id number]. 593 1985 Unknown [id number] 2.16.840.1.870705.3.579.2. 1259 1985 Unknown [id number] 2.16.840.1.296983.3.579.2. 727 1985 Unknown [id number] [id number]. 727 1985 Unknown [id number] [id number]. 727 1960 [facility] [id number] 1960 Medicaid [id number] Medicaid [employer] [id number] Unknown [id number]. 531 Social History Date Type Detail Facility Unknown if ever smoked [facility] Other Sex Assigned At [facility] Start: 09-26-2018 Tobacco smoking status MTIS Smoker (finding) [facility] Start: 1985 Sex Assigned At Female [facility] Start: 10-19-2023 Tobacco smoking status Ex-smoker (finding) [facility] Tobacco smoking status Never [facility] Tobacco smoking stat [facility] Tobacco smoking consumption unknown [facility] Start: 09-20-2024 Gender identity Identifies as female gender (finding) [facility] Start: 09-20-2024 Sexual orientation Heterosexual (finding) [facility] Healthcare Functional Status Date Assessment Result Facility 10-19-2023 Functional Status N/A [facility]ling Clinical Notes 09-11-2022 to 09-25-2024 QUINTEN Albert - 09/25/2024 8:30 AM ESTRadiology Note Date & Type Note Facility 09-25-2024 History of Present illness Narrative Reason for Appointment: Patient ID: Nuris Casarez is a 39 y.o. female who presents for Fibroids and vaginal bleeding Patient presents today for Acute Visit. MEDICATIONS Current Outpatient Medications Medication Instructions acetaminophen (TYLENOL) 500 mg, Oral, Every 4 hours PRN medroxyPROGESTERone (DEPO-PROVERA) 150 mg, Intramuscular, Every 3 months ALLERGIES Allergies Allergen Reactions Compazine [Prochlorperazine] Anxiety PROBLEMS Active Ambulatory Problems Diagnosis Date Noted No Active Ambulatory Problems Resolved Ambulatory Problems Diagnosis Date Noted No Resolved Ambulatory Problems Past Medical History: Diagnosis Date Anxiety Arthritis Asthma ([facility]) Endometriosis Kidney failure PTSD (post-traumatic stress disorder) ([facility]) Scoliosis HISTORY PAST MEDICAL HISTORY SOCIAL HISTORY Past Medical History: Diagnosis Date Anxiety Arthritis Asthma ([facility]) Endometriosis Kidney failure PTSD (post-traumatic stress disorder) ([facility]) Scoliosis Social History Tobacco Use Smoking status: Not on file Smokeless tobacco: Not on file Substance Use Topics Alcohol use: Not on file Drug use: Not on file FAMILY HISTORY Family History Problem Relation Name Age of Onset Breast cancer Mother Lung cancer Mother Kidney failure Father Hyperlipidemia Father SURGICAL HISTORY Past Surgical History: Procedure Laterality Date APPENDECTOMY BREAST RECONSTRUCTION CERVICAL BIOPSY W/ LOOP ELECTRODE EXCISION 01/04/2005 SECTION, LOW TRANSVERSE X5 LAPAROSCOPY DIAGNOSTIC / BIOPSY / ASPIRATION / LYSIS NOSE SURGERY SINUS SURGERY TONSILECTOMY, ADENOIDECTOMY, BILATERAL MYRINGOTOMY AND TUBES REVIEW OF SYSTEMS Review of Systems: Review of Systems Constitutional: Negative. HENT: Negative. Eyes: Negative. Respiratory: Negative. Cardiovascular: Negative. Gastrointestinal: Negative. Genitourinary: Negative. Musculoskeletal: Negative. Skin: Negative. Neurological: Negative. All other systems reviewed and are negative. Hematological: Negative. Endocrine: Negative. Allergic/Immunologic: Negative. OBJECTIVE Objective: Physical Exam Constitutional: Appearance: Normal appearance. She is normal weight. HENT: Head: Normocephalic. Cardiovascular: Rate and Rhythm: Normal rate. Pulses: Normal pulses. Pulmonary: Effort: Pulmonary effort is normal. Breath sounds: Normal breath sounds. Abdominal: General: Abdomen is flat. Palpations: Abdomen is soft. Hernia: A hernia is present. Comments: Vental and periumbilical, easily reduced Musculoskeletal: General: Normal range of motion. Neurological: General: No focal deficit present. Mental Status: She is alert and oriented to person, place, and time. Psychiatric: Mood and Affect: Mood normal. Behavior: Behavior normal. Thought Content: Thought content normal. Judgment: Judgment normal. Vitals and nursing note reviewed. Vitals: Estimated body mass index is 21.73 kg/m as calculated from the following: Height as of this encounter: 5' 1 . Weight as of this encounter: 115 lb. BP: 108/70 No LMP recorded. Patient has had an injection. ASSESSMENT & PLAN ICD-10-CM 1. Vaginal bleeding N93.9 2. Fibroid D21.[address] Hays as a referral for menorrhagia. Patient states she has history of 2 previous ablations and is currently taking depot and continues to bleed heavy with large clots. Patient wishes to have hysterectomy. Patient will be scheduled for diagnostic lap and will be evaluated further as to which surgical procedure would be best for patient. Documented by QUINTEN Albert on behalf of: QUINTEN Albert documented in this encounter [facility] 10-19-2023 Evaluation + Plan note Future Scheduled TestsCT Abdomen/Pelvis w/ Contrast 10/19/23MRI Breast w/o and w/ Contrast, Bilat 10/19/23 [facility] 01-04-2023 Evaluation note Encounter Date Diagnosis Assessment [...] Lab as above prior to next visit [facility] Other 12-31-2022 Evaluation note* Encounter Date Diagnosis Assessment Notes Treatment Notes Treatment Clinical Notes Aug, Sore throat (ICD-10 - J02.9) [...] care provider if no improvement of symptoms [facility] Other Evaluation noteNo assessment information available [facility] Work Phone: Evaluation note* Diagnosis Vaginal bleeding Other specified noninflammatory disorder of vagina Fibroid Leiomyoma of uterus, unspecified documented in this encounter [facility] N[facility] - Reported* Type Description Date Medical History Endometriosis Medical History Anxiety Medical [...] History see above Hospitalization History placental abruption [facility] Other History general Narrative - Reported* Type Description Date Medical History Endometriosis Medical History Anxiety Medical [...] History see above Hospitalization History placental abruption [facility] Other Hospital course Narrative No data available for this section [facility] Discharge instructions No data available for this section [facility] Progress note No data available for this section [facility] Summary Purpose Family History No Family History Records FoundNo Family History Records Found No data available for this section No Family History Records Found No data available for this section No Family History Records FoundNo Family History Records Found Advance Directives No Advanced Directives Records Found Advance Directive Response Recorded Date/ Time Advance Directives No January 23 8 8:10am Additional Source Comments INFORMATION SOURCE (unrecogn ized section and content) DATE CREATED AUTHOR [facility]/06/2018 [facility] DATE CREATED AUTHOR AUTHOR'S ORGANIZ ATION [facility]2023 [facility] DATE CREATED AUTHOR AUTHOR'S ORGANIZ ATION 10/21/2023 [facility] DATE CREATED AUTHOR AUTHOR'S ORGANIZ ATION 09/28/2024 [facility] EPIC DATE CREATED AUTHOR AUTHOR'S ORGANIZ ATION 10/21/2024 [facility] REASON FOR VISIT (unrecogniz ed section and content) Reason Comments Fibroids vaginal bleeding Care Teams (unrecognized sec tion and content) Team Status: Inactive Member Role Status Dates JACQUELIN Christianson Attending Provider Active Start: September 28, 2023 [...] BE BASED ON THE PRIMARY CLINICAL RECORDS. [facility] JAZIO [facility]. provides no warranty or guarantee of the accuracy or completeness of information in this document.
[2024-10-24 13:27] LABS: Basophils Absolute Auto 0.1 10^3/uL (0.0-0.1); Basophils Percent Auto 0.7 % (0.2-2.0); Eosinophils Absolute Auto 0.1 10^3/uL (0.0-0.7); Eosinophils Percent Auto 1.5 % (0.9-7.0); Hematocrit 40.6 % (36.0-48.0); Hemoglobin 14.2 g/dL (12.0-16.0); Immature Granulocytes Abs Auto 0.02 10^3/uL (0.00-0.03); Immature Granulocytes Pct Auto 0.3 % (0.0-0.5); Lymphocytes Absolute Auto 1.5 10^3/uL (1.2-3.8); Lymphocytes Percent Auto 21.8 % (20.5-60.0); Mean Corpuscular Hemoglobin 32.3 pg (26.7-34.0); Mean Corpuscular Volume 92.3 fL (81.0-99.0); Mean Platelet Volume 9.2 fL (9.5-13.5); Monocytes Absolute Auto 0.8 10^3/uL (0.3-0.8); Monocytes Percent Auto 12.1 % (1.7-12.0); Neutrophils Absolute Auto 4.4 10^3/uL (1.4-6.5); Neutrophils Percent Auto 63.6 % (43.0-75.0); Platelet Count 208 10^3/uL (150-450); Red Cell Distribution Width 12.8 % (11.0-15.0); White Blood Count 6.9 10^3/uL (4.0-11.0)
--- NOTE | 2024-10-24 13:27 | P.GSHP_ITS ---
History of Present Illness History of Present Illness Chief complaint: VAGINAL BLEEDING, URTERINE FIBROID Narrative: Mrs. Nuris Casarez is a pleasant 39-year-old female presents to presurgical testing with complaints of vaginal bleeding and cramping and recent diagnosis of uterine fibroid. She is scheduled for diagnostic laparoscopy, possible ERIBERTO, possible FOE, possible BSO with Dr. Montalvo scheduled on 11/09/2024 Review of Systems ROS Narrative REVIEW OF SYSTEMS: Negative except as stated in HPI, ten or more systems reviewed. Constitutional: No fever, chills, weakness ENT: No sore throat or epistaxis Cardiovascular: No edema, chest pain, palpitations, or activity intolerance Respiratory: No shortness of breath, cough, or wheezing Musculoskeletal: No joint pain or swelling Gastrointestinal: No abdominal pain, constipation, diarrhea, or vomiting Genitourinary: No dysuria or hematuria Neurological: No numbness, tingling, weakness, or headache Psychiatric: No mood changes PFSH PFS Medical History (Updated 10/24/24 @ 13:04 by Lore Purdy) Chronic kidney disease (CKD) stage G2/A3, mildly decreased glomerular filtration rate (GFR) between 60-89 mL/min/1.73 square meter and albuminuria creatinine ratio greater than 300 mg/g ?N18.2 - Chronic kidney disease, stage 2 (mild) (ICD-10) Back pain ?M54.9 - Dorsalgia, unspecified (ICD-10) Anxiety ?F41.9 - Anxiety disorder, unspecified (ICD-10) Chronic kidney disease ?N18.9 - Chronic kidney disease, unspecified (ICD-10) Asthma ?J45.909 - Unspecified asthma, uncomplicated (ICD-10) Migraine ?G43.909 - Migraine, unspecified, not intractable, without status migrainosus (ICD-10) Pelvic pain ?R10.2 - Pelvic and perineal pain (ICD-10) Abnormal uterine bleeding ?N93.9 - Abnormal uterine and vaginal bleeding, unspecified (ICD-10) Seasonal allergies ?J30.2 - Other seasonal allergic rhinitis (ICD-10) Hypoglycemia ?E16.2 - Hypoglycemia, unspecified (ICD-10) Scoliosis ?M41.9 - Scoliosis, unspecified (ICD-10) Endometriosis ?N80.9 - Endometriosis, unspecified (ICD-10) Arthritis ?M19.90 - Unspecified osteoarthritis, unspecified site (ICD-10) Surgical History Status post fine needle aspiration ?Z98.890 - Other specified postprocedural states (ICD-10) History of laparoscopy ?Z98.890 - Other specified postprocedural states (ICD-10) H/O hernia repair ?Z98.890 - Other specified postprocedural states (ICD-10) ?Z87.19 - Personal history of other diseases of the digestive system (ICD-10) History of nasal septoplasty ?Z98.890 - Other specified postprocedural states (ICD-10) Hx of breast implants, bilateral ?Z98.82 - Breast implant status (ICD-10) H/O LEEP ?Z98.890 - Other specified postprocedural states (ICD-10) Previous section ?Z98.891 - History of uterine scar from previous surgery (ICD-10) S/P appendectomy ?Z90.49 - Acquired absence of other specified parts of digestive tract (ICD- 10) History of tonsillectomy and adenoidectomy ?Z90.89 - Acquired absence of other organs (ICD-10) Family History (Updated 10/24/24 @ 12:55 by Lore Purdy) Other Family history of COPD (chronic obstructive pulmonary disease) Family history of breast cancer Family history of cervical cancer Family history of hypertension Family history of lung cancer Family history of ovarian cancer Family history of renal failure Social History (Updated 10/24/24 @ 12:53 by Lore Purdy) Within the past year, how often did you have a drink containing alcohol: never Score interpretation: A score less than 3 is consistent with normal alcohol consumption. 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[employer] Highest level of school completed/degree received: some college, no degree Meds Home Medications and Allergies Home Medications ?Medication ?Instructions ?Recorded ?Confirmed ?Type albuterol 90 mcg/actuation aerosol 90 mcg inhalation QID PRN wheezing 10/24/24 10/24/24 History inhaler medroxyprogesterone 150 mg/mL 300 mg IM .Every 3 months 10/24/24 10/24/24 History intramuscular suspension sumatriptan succinate 100 mg 100 mg PO Q2H PRN migraine headache 10/24/24 10/24/24 History tablet (Imitrex) Allergies Allergy/AdvReac Type Severity Reaction Status Date / Time prochlorperazine (From Allergy Anxiety Verified 10/24/24 12:47 Compazine) Exam Narrative Exam Narrative: Nurses note and vital signs reviewed and patient is not hypoxic. General: The patient appears well and in no apparent distress. Patient is resting comfortably on cart. Skin: Warm, dry, no pallor noted. There is no rash noted. Head: Normocephalic, atraumatic Eye: Normal conjunctiva, no drainage, EOMI. PERRL Ears, Nose, Mouth, and Throat: oral mucosa is moist. Nares patent. Mouth without vesicles. Ear canals patent. Tm's without Erythema Cardiovascular: Regular Rate and Rhythm Respiratory: Patient is in no distress, no accessory muscle use, lungs are clear to auscultation, no wheezing, rales or rhonchi Back: non-tender, no CVA tenderness bilaterally to percussion. GI: Normal bowel sounds, no tenderness to palpation, no masses appreciated. No rebound, guarding, or rigidity noted. Musculoskeletal: The patient has no evidence of calf tenderness, no pitting edema, symmetrical pulses noted bilaterally Neurological: A&O x4, normal speech Psychiatric: Cooperative Assessment and Plan Assessment and Plan (1) Fibroid: (2) Abnormal uterine bleeding: Plan Given complaints of vaginal bleeding and fibroid she is scheduled for diagnostic laparoscopy, possible ERIBERTO possible FOE and possible BSO with Dr. Montalvo on 11/09/2024
[2024-10-24 13:42] LABS: Anion Gap 9.7; BUN Creatinine Ratio 14.3; Calcium 8.7 mg/dL (8.5-10.1); Carbon Dioxide 28.2 mmol/L (21.0-32.0); Chloride 105 mmol/L (98-107); Estimated GFR (African America >60 (>=60 mL/min/1.73m^2); Estimated GFR (Non-African Ame 54 (>=60 mL/min/1.73m^2); Glucose 86 mg/dL (74-106); Potassium 3.9 mmol/L (3.5-5.1); Sodium 139 mmol/L (136-145)
== END 2024-10-24 12:37 | disposition home or self-care (01) ==
LOC: PST 12:36
PROVIDERS: PCP Nurse Practitioner Family; Visit Provider Obstetrics & Gynecology
DX: Z01.812 Encounter for preprocedural laboratory examination (principal); Z01.818 Encounter for other preprocedural examination; N93.9 Abnormal uterine and vaginal bleeding, unspecified; N21.9 Calculus of lower urinary tract, unspecified
CPT/HCPCS: 80048; 85025; G0463

== ENCOUNTER 2024-11-09 07:30 | Day surgery (SDC) | payer BC, SELFPAY ==
[2024-10-24 12:45] VITALS: BP 111/69; PULSE 85; TEMP 36.4; O2SAT 98; BMI 22.3
[2024-11-09] VITALS (11 sets, daily range): BP systolic 94–114; BP diastolic 55–75; PULSE 19–89; TEMP 36.1–36.7; O2SAT 92–100; BMI 21.9
--- OUTSIDE RECORDS SUMMARY | 2024-11-09 07:34 | XMS_ITS | CCD ---
Author Organization [facility] Care Team Providers Care Global Marketing Specialist Name Role Phone Waldrop, Juan R. Unavailable [...] Unavailable BOB, YESSICA Primary Care Unavailable BOB, YESISCA Primary Care Unavailable KARSOLANGE ., DR MOTA Admitting Unavailabl e KARSOLANGE ., DR MOTA Consulting Unavailabl e KARASIK ., DR MOTA Attending Unavailabl e BOB, YESSICA Admitting Unavailable BOB, YESSICA Primary Care Unavailable YESSICA ROJAS Consulting Unavailable YESSICA ROJAS Attending Unavailable COLIN HDEZ Consulting Unavailable YESSICA ROJAS Attending Unavailable BOB, YESSICA Admitting Unavailable BOB, YESSICA Primary Care Unavailable BOB YESSICA Consulting Unavailable Bob INDUSTRIAL EQUIPMENT MECHANIC-Arnav Ramires Attending Provider YESSICA ROJAS Primary Care Physician Yessica Rojas Attending Unavailable Yessica Rojas Admitting Unavailable Unavailable Primary Care Provider UnavailAMERICA Perry Attending Unavailable Unavailable Primary Care Provider UnavailRYANNE Claire Attending Unavailable YESSICA ROJAS Referring Unavailable NILLDustin R Admitting Unavailable NILDustin Dixon R Attending Unavailable NILL, Dustin R Referring Unavailable JESSICA QUINTANA Attending Unavailable Allergies Allergy Classification Reported Allergen(s) Allergy Type Date of Onset Reaction(s) Facility (1 source) ketamine; Translations: [ketamine] Drug Allergy [facility] Repository (1 source) Compazine Spansule; Translations: [Compazine Spansule] Propensity to adverse reactions (disorder) [facility] Repository (6 sources) Prochlorperazine; Translations: [Compazine] Drug Allergy Anxiety (finding) [facility] Repository (1 source) Prochlorperazine Drug Allergy 05-03-20 [facility] Repository (3 sources) Prochlorperazine Drug Allergy 09-25-19 Anxiety [facility] Medications Current Medications Medication Drug Class(es) Dates Sig (Normalized) Sig (Original) acetaminophen 500 mg oral tablet (3 sources) take 1 tablet by mouth every four hours as needed for pain acetaminophen (Tylenol) 500 MG tablet Take 500 mg by mouth every 4 (four) hours if needed for mild pain Active acetaminophen 325 mg / HYDROcodone bitartrate 5 mg oral tablet (2 sources) Opioid Agonist Start: 09-26-2018 take 1 tablet by mouth every six hours Hydrocodone-Acetami nophen (Helm) 5-325 mg tablet Active 1 TAB PO Q6H 10 3 September 26, 2018 Start: 08-29-2018 End: 09-03-2018 take 1 tablet by mouth every six hours Hydrocodone-Acetaminophen (Helm) 5-325 mg tablet Discontinued 1 TAB PO [...] 1 ml medroxyPROGESTERone acetate 150 mg/ml injection (4 sources) Progestin medroxyPROGESTER one (Depo-Provera) 150 MG/ML [...] conditions (not mental disorders or infectious disease) (9 sources) Encounter for screening for malignant neoplasm [...] Test Name Value Interpretation Reference Range Facility ALL CBC WITH AUTO DIFFon BASOPHILS ABSOLUTE AUTO 0.1 [facility] Basophils/100 WBC (Bld) 0.7 % 0.2 - 2.0 % [facility] Eosinophils/100 WBC (Bld) 1.5 % 0.9 - 7.0 % [facility] Erythrocyte distribution width (RBC) [Ratio] 12.8 % 11.0 - 15.0 % [facility] Hematocrit (Bld) [Volume fraction] 40.6 % 36.0 - 48.0 % [facility] Hemoglobin (Bld) [Mass/Vol] 14.2 g/dL 12.0 - 16.0 g/dL [facility] IMMATURE GRANULOCYTES ABS AUTO 0.02 [facility] Immature granulocytes/10 0 WBC (Bld) 0.3 % 0.0 - 0.5 % [facility] Interpretation and review of laboratory results Abnormal [facility] LYMPHOCYTES ABSOLUTE AUTO 1.5 [facility] Lymphocytes/100 WBC (Bld) 21.8 % 20.5 - 60.0 % [facility] MCH (RBC) [Entitic mass] 32.3 pg 26.7 - 34.0 pg [facility] MCHC (RBC) [Mass/Vol] 35 g/dL 29.9 - 35.2 g/dL [facility] MCV (RBC) [Entitic vol] 92.3 fL 81.0 - 99.0 fL [facility] MONOCYTES ABSOLUTE AUTO 0.8 [facility] Monocytes/100 WBC (Bld) 12.1 % High 1.7 - 12.0 % [facility] NEUTROPHILS ABSOLUTE AUTO 4.4 [facility] Neutrophils/100 WBC (Bld) 63.6 % 43.0 - 75.0 % [facility] Platelet mean volume (Bld) [Entitic vol] 9.2 fL Low 9.5 - 13.5 fL [facility] TBH EO # 0.1 [facility] TBH PLT 208 [facility] TB RBC 4.4 [facility] TB WBC 6.9 [facility] MRI Breast w/o and w/ Contra st, Bilaton 02-12-2025 MRI Breast w/o and w/ Contrast, Bilat Exam Date/Time: 10/28/2023 15:37 EST Reason for Exam: category 4 left breast mammogram, abnormal US, dense breasts with bilateral implants;Other (please specify) Addendum SYSTEM TYPOGRAPHICAL ERROR IN THE ORIGINAL REPORT TEMPLATE. Please disregard the sentence, Dynamic Breast MR imaging was then performed with fat sat pre and post-T1 weighted images after the patient received 20 cc of MultiHance gadolinium contrast. in the TECHNIQUE paragraph. The actual contrast and dose is included in the attached exam data. Ordering Provider: Dustin PALMA FINAL REPORT Dictated: 10/24/2024 3:14 pm Riaz Resendez MD Signed (Electronic Signature): 10/24/2024 3:14 pm Signed by: Riaz Resendez MD Transcribed by: HONG Technologist: ALBARO Assessment: BI-RADS Category 3-Probably benign - short interval follow-up Recommendation: Follow-up at short interval Report [facility] [phone] IMPRESSION: BIRADS 3 PROBABLY BENIGN, SHORT INTERVAL [...] This study was performed on a 1.5 Heiid magnet. A dedicated in vivo seven channel breast coil was used. T1 weighted images and fat sat T2 weighted images were initially obtained. Dynamic Breast MR imaging was then performed with fat sat pre and post-T1 weighted images after the patient received 3 mL of Vueway gadolinium contrast. Report Multiplanar images of both breasts were displayed. Post-contrast MIP; time-signal intensity curves; angio-maps; and subtraction images were generated at the dedicated breast LED Engina[employer]ad workstation FINDINGS: Bilateral intact saline implants are [...] ducts, or other findings of concern identified. CAD analysis was performed and used in the interpretation. Board Certified Radiologists. Accredited by the ACR and FDA. MAMMOGRAPHY IS VERY IMPORTANT TO YOUR HEALTH. THE CURRENT [place] [employer]HENSIVE CANCER [...] Comments Vueway Contrast amount in ml's: 3 Report last revised on 10/24/2024 15:14 EST by Riaz Resendez MD [facility] Reminderson 04-18-2024 Reminders Reminders From: Elva Rajput [...] at this time due to cost. Normal [facility] CT Abdomen/Pelvis w/ Contras ton 10-28-2023 [...] Oral contrast amount in ml's: 900 Normal [facility] Consent for Treatmenton 10-13 Consent for Treatment [id number]#[id number] Normal [facility] RAD - MISCon 10-28-2023 RAD - MISC [id number]#1.00TIFF Normal [facility] RAD - MISC [id number]#1.00TIFF Normal [facility] RAD - MRI Screening Formon 0 10-28-2023 RAD - MRI Screening Form [id number]#1.00TIFF Normal [facility] Wallace 09-28-2023 L Specimen: [id number] Rec eived: 09/28/23 Status: WALTER Hanley Num: [id number] Spec Type: Cytology Subm Dr: Yessica Rojas CNP Tissues: A BREASTCYSTFLUID (LT BREAST MASS) Procedures: HE/2, Gross/Micro L4, Cyto Prepstain, PAPSTN/7 Age/ Patient Sex Location Account Attending Physician Nuris Saldana M 38/F [place] [id number] Yessica Rojas CNP SPEC NUM: [id number] RECD: 09/28/23 STATUS: SOUKary RE NUM: [id number] SHELL: 09/28/23- SUBM DR: Yessica Rojas CNP ENTERED: 09/28/[address]: Louise Dowling SPEC TYPE: Cytology DEPT: MAIKOL ART ENTERED BY: [id number] RECV BY: [id number] ORDERED: HE/2, Gross/Micro L4, Cyto Prepstain, PAPSTN/7 [...] appropriate Specimen: [id number] Received: 09/28/23 Status: WALTER Hanley Num: [id number] Spec Type: Cytology Subm Dr: Yessica Rojas, [facility] Tissues: A BREASTCYSTFLUID (LT BREAST MASS) Procedures: HE/2, Gross/Micro L4, Cyto Prepstain, PAPSTN/7 Patient: Nuris Saldana [id number] (Continued) Specimen: [id number] Received: 09/28/23 (Continued) Signed (signature on file) Poornima Ruggiero MD 09/30/23 1128 Specimen: [id number] Received: 09/28/23 Status: WALTER Gonzalezdrew Num: [id number] Spec Type: Cytology Subm Dr: Yessica Rojas CNP Tissues: A BREASTCYSTFLUID (LT BREAST MASS) Procedures: HE/2, Gross/Micro L4, Cyto Prepstain, PAPSTN/7 Patient: Nuris Saldana [id number] (Continued) Specimen: [id number] Received: 09/28/23 (Continued) Gross Description Received is 30 ml pale pink clear fixed fluid for cytology said to have been obtained as Us guided FNA. Thin prep and cell block preparations are prepared for microscopic examination. Also received are 6 smeared slides for microscopic examination.(CC/ca) CPT Codes 26480, 53734 Specimen: [id number] Received: 09/28/23 Status: WALTER Hanley Num: [id number] Spec Type: Cytology Subm Dr: Yessica Rojas, BIOPHYSICS TEACHER Tissues: A BREASTCYSTFLUID (LT BREAST MASS) Procedures: HE/2, Gross/Micro L4, Cyto Prepstain, PAPSTN/7 Patient: Nuris Saldana [id number] (Continued) Signed (signature on file) Poornima Ruggiero MD 09/30/23 1128 [facility] PAP ACOG PANEL 2: 30 to 65on 01-17-2023 . . Normal [facility] Comment on above: Result Comment: Performed at: [facility] Performed By: #### [id number] #### [facility] [address] [place] [address] Dr. Debo Ruggiero Age Gdln ACOG Testing 30-65 Normal [facility] Comment on above: Performed By: #### [id number] #### [facility] [address] [address] [address] Debo Ruggiero DIAGNOSIS: Comment Normal [facility] Comment on above: Result Comment: NEGATIVE FOR INTRAEPITHE LIAL LESION OR MALIGNANCY. Performed at: [facility] Performed By: #### 4 [id number] #### [facility] [address] [place] [address] Dr. Debo Ruggiero HPV Aptima Negative Normal Negative [facility] Comment on above: Result Comment: This nucleic acid amplif ication test detects fourteen high-risk HPV types (16,18,31,33,35,39,45,51,52,56,58,59,66,68) without differentiation. Performed at: =G Performed By: #### [id number] #### [facility] [address] [address] [address] Debo Ruggiero HPV Genotype Reflex Comment Normal [facility] Comment on above: Result Comment: Criteria not met, HPV Ge notype not performed. Performed at: [facility] Performed By: #### 4 [id number] #### [facility] [address] [place] [address] Dr. Debo Ruggiero Methodology: Comment [facility] Comment on above: Result Comment: This liquid based ThinPr ep(R) pap test was screened with the use of an image guided system. Performed at: [facility] Performed By: #### [id number] #### [facility] [address] [place] [address] Dr. Debo Ruggiero Note: Comment Normal [facility] Comment on above: Result Comment: The Pap smear is a scree patel test designed to aid in the detection of premalignant and malignant conditions of the uterine cervix. It is not a diagnostic procedure and should not be used as the sole means of detecting cervical cancer. Both false-positive and false-negative reports do occur. . Performed at: [facility] Performed By: #### [id number] #### [facility] [address] [address] [address] Debo Ruggiero Performed by: Comment Normal [facility] Comment on above: Result Comment: Sita Lemus, Cytotec hnologist (ASCP) Performed at: [facility] Performed By: #### 4 [id number] #### [facility] [address] [address] [address] Debo Ruggiero Specimen adequacy: Comment [facility] Comment on above: Result Comment: Satisfactory for evaluat ion. No endocervical component is identified. Performed at: [facility] Performed By: #### 4 [id number] #### [facility] [address] [place] [address] Dr. Debo Ruggiero COVID/FLU/RSV RT-PCRon 09-11 SARS-CoV-2 (COVID-19) RNA CAMILA+probe Ql (Unsp spec) Negative [facility] [employer] Other COVID/FLU/RSV RT-PCR Negative [facility] [employer] Other Quick Strepon 09-11-2022 S. pyogenes Org specific cx Ql (Throat) Negative [facility] [employer] Other [employer] Strep [facility] [employer] Other US KIDNEYS BLADDERon 022 US KIDNEYS [...] COLIN HDEZ Date: 2022-02-14 21:18 Normal [facility] PROF 14(COMP METB)on 022 Albumin [Mass/Vol] 4.0 g/dL Normal 3.4-5.0 [facility] Comment on above: Performed By: #### CMP #### [facility] [address] [place] [address] Dr. Debo Ruggiero Albumin/Globuli n [Mass ratio] 1.1 {ratio} Normal [facility] Comment on above: Performed By: #### CMP #### [facility] [address] [place] [address] Dr. Debo Ruggiero ALP [Catalytic activity/Vol] 65 U/L Normal 46-116 [facility] Comment on above: Performed By: #### CMP #### [facility] [address] [place] [address] Dr. Debo Ruggiero ALT [Catalytic activity/Vol] 19 U/L Normal 14-59 [facility] Comment on above: Performed By: #### CMP #### [facility] [address] [place] [address] Dr. Debo Ruggiero Anion gap [Moles/Vol] 12.6 mmol/L Normal [facility] Comment on above: Performed By: #### CMP #### [facility] [address] [place] [address] Dr. Debo Ruggiero AST [Catalytic activity/Vol] 15 U/L Normal 15-37 [facility] Comment on above: Performed By: #### CMP #### [facility] [address] [address] [address] Debo Ruggiero Bilirubin [Mass/Vol] 0.6 mg/dL Normal 0.2-1.0 [facility] Comment on above: Performed By: #### CMP #### [facility] [address] [address] [address] Debo Ruggiero Calcium [Mass/Vol] 9.2 mg/dL Normal 8.5-10.1 [facility] Comment on above: Performed By: #### CMP #### [facility] [address] [address] [address] Debo Ruggiero Chloride [Moles/Vol] 103 mmol/L Normal 98-107 [facility] Comment on above: Performed By: #### CMP #### [facility] [address] [place] [address] Dr. Debo Ruggiero CO2 [Moles/Vol] 29.1 mmol/L Normal 21.0-32.0 [facility] Comment on above: Performed By: #### CMP #### [facility] [address] [address] [address] Debo Ruggiero Creatinine [Mass/Vol] 1.18 mg/dL Critically high 0.55-1.02 [facility] Comment on above: Performed By: #### CMP #### [facility] [address] [place] [address] Dr. Debo Ruggiero EGFR-AF MEXICAN >60 Normal >=60 [facility] Comment on above: Performed By: #### CMP #### [facility] [address] [address] [address] Debo Ruggiero EGFR-NON AF M[place]ICAN 52 mL/min/1.73m2 Critically low >=60 [facility] Comment on above: Performed By: #### CMP #### [facility] [address] [address] [address] Debo Ruggiero Globulin (S) [Mass/Vol] 3.8 g/dL Normal [facility] Comment on above: Performed By: #### CMP #### [facility] [address] [place] [address] Dr. Debo Ruggiero Glucose [Mass/Vol] 81 mg/dL Normal 74-106 [facility] Comment on above: Performed By: #### CMP #### [facility] [address] [address] [address] Debo Ruggiero Potassium [Moles/Vol] 4.7 mmol/L Normal 3.5-5.1 [facility] Comment on above: Performed By: #### CMP #### [facility] [address] [address] [address] Debo Ruggiero Protein [Mass/Vol] 7.8 g/dL Normal 6.4-8.2 [facility] Comment on above: Performed By: #### CMP #### [facility] [address] [place] [address] Dr. Debo Ruggiero Sodium [Moles/Vol] 140 mmol/L Normal 136-145 [facility] Comment on above: Performed By: #### CMP #### [facility] [address] [address] [address] Debo Ruggiero Urea nitrogen [Mass/Vol] 19.0 mg/dL Critically high 7.0-18.0 [facility] Comment on above: Performed By: #### CMP #### [facility] [address] [address] [address] Debo Ruggiero Urea nitrogen/Creati nine [Mass ratio] 16.1 mg/mg Normal [facility] Comment on above: Performed By: #### CMP #### [facility] [address] [place] [address] Dr. Debo Ruggiero PROF 14(COMP METB)on 022 Albumin [Mass/Vol] 4.1 g/dL Normal 3.4-5.0 [facility] Comment on above: Performed By: #### CMP #### [facility] [address] [place] [address] Dr. Debo Ruggiero Albumin/Globuli n [Mass ratio] 1.2 {ratio} Normal [facility] Comment on above: Performed By: #### CMP #### [facility] [address] [place] [address] Dr. Debo Ruggiero ALP [Catalytic activity/Vol] 58 U/L Normal 46-116 [facility] Comment on above: Performed By: #### CMP #### [facility] [address] [place] [address] Dr. Debo Ruggiero ALT [Catalytic activity/Vol] 19 U/L Normal 14-59 [facility] Comment on above: Performed By: #### CMP #### [facility] [address] [address] [address] Debo Ruggiero Anion gap [Moles/Vol] 11.7 mmol/L Normal [facility] Comment on above: Performed By: #### CMP #### [facility] [address] [address] [address] Debo Ruggiero AST [Catalytic activity/Vol] 15 U/L Normal 15-37 [facility] Comment on above: Performed By: #### CMP #### [facility] [address] [place] [address] Dr. Debo Ruggiero Bilirubin [Mass/Vol] 0.6 mg/dL Normal 0.2-1.0 [facility] Comment on above: Performed By: #### CMP #### [facility] [address] [address] [address] Debo Ruggiero Calcium [Mass/Vol] 8.6 mg/dL Normal 8.5-10.1 [facility] Comment on above: Performed By: #### CMP #### [facility] [address] [place] [address] Dr. Debo Ruggiero Chloride [Moles/Vol] 106 mmol/L Normal 98-107 [facility] Comment on above: Performed By: #### CMP #### [facility] [address] [place] [address] Dr. Debo Ruggiero CO2 [Moles/Vol] 28.3 mmol/L Normal 21.0-32.0 [facility] Comment on above: Performed By: #### CMP #### [facility] [address] [place] [address] Dr. Debo Ruggiero Creatinine [Mass/Vol] 1.35 mg/dL Critically high 0.55-1.02 [facility] Comment on above: Performed By: #### CMP #### [facility] [address] [address] [address] Debo Ruggiero EGFR-AF MEXICAN 53 mL/min/1.73m2 Critically low >=60 [facility] Comment on above: Performed By: #### CMP #### [facility] [address] [address] [address] Debo Ruggiero EGFR-NON AF MEXICAN 44 mL/min/1.73m2 Critically low >=60 [facility] Comment on above: Performed By: #### CMP #### [facility] [address] [address] [address] Debo Ruggiero Globulin (S) [Mass/Vol] 3.4 g/dL Normal [facility] Comment on above: Performed By: #### CMP #### [facility] [address] [address] [address] Debo Ruggiero Glucose [Mass/Vol] 82 mg/dL Normal 74-106 [facility] Comment on above: Performed By: #### CMP #### [facility] [address] [address] [address] Debo Ruggiero Potassium [Moles/Vol] 4.0 mmol/L Normal 3.5-5.1 [facility] Comment on above: Performed By: #### CMP #### [facility] [address] [address] [address] Debo Ruggiero Protein [Mass/Vol] 7.5 g/dL Normal 6.4-8.2 [facility] Comment on above: Performed By: #### CMP #### [facility] [address] [address] [address] Debo Ruggiero Sodium [Moles/Vol] 142 mmol/L Normal 136-145 [facility] Comment on above: Performed By: #### CMP #### [facility] [address] [address] [address] Debo Ruggiero Urea nitrogen [Mass/Vol] 18.0 mg/dL Normal 7.0-18.0 [facility] Comment on above: Performed By: #### CMP #### [facility] [address] [address] [address] Debo Ruggiero Urea nitrogen/Creati nine [Mass ratio] 13.3 mg/mg Normal [facility] Comment on above: Performed By: #### CMP #### [facility] [address] [address] [address] Debo Ruggiero Anesthesia Consultationon Anesthesia Consultation [...] Problem list: All ProblemsArthropathies / SNOMED CT 9166937450 / Confirmedarthritis of the backAsthma / SNOMED CT 074226423 / ConfirmedOvarian cyst / SNOMED CT 140267265 / ConfirmedEndometriosis / SNOMED CT 965505383 / ConfirmedPanic attack / SNOMED CT 018408290 / ConfirmedScoliosis / SNOMED CT 248188792 / Confirmed Physical Examination Intake and Output Denies significant n/v and is tolerating p.o. No qualifying data available Respiratory: Adequate air exchange with christianity of preoperative function.. Cardiovascular: Cardiovascular function is stable and has returned to preoperative levels.. Neurologic: Pt has returned to preoperative baseline.. Review / Management Condition: Stable. Assessment Anesthetic outcome No anesthetic complications noted. Plan Transfer/ Discharge: Patient can be discharged from PACU when criteria met. Condition good. Normal [facility] Coding Summary.on 10-19-2017 Coding Summary. CODING DATE: [address] [facility] STATUS: Home (Routine DC) PAYOR: Capac APC DESCRIPTION 5522 Level 2 Imaging without [...] Kelsey Curtis Date Saved: 10/19/2017 10:15 am [facility] LE Venous Duplex Righton 10-18-2017 LE Venous Duplex Right Exam Date/Time:10/18/2017 18:02 [...] MD Transcribed by: HONG Technologist: JAYLA Normal [facility] Coding Summary.on 10-17-2017 Coding Summary. CODING DATE: [address] [facility] STATUS: Home (Routine DC) PAYOR: Capac APC DESCRIPTION 5361 Level 1 Laparoscopy and Related Services ADMIT DX: REASON FOR VISIT DX: K43.2 Incisional hernia without obstruction or gangrene FINAL DX: PRINCIPAL: K43.0 Incisional hernia with obstruction, without gangrene SECONDARY: PYMT PROC APC STAT DESCRIPTION DOCTOR NAME DATE 29071 5361 J1 Repair recurrent Juan Waldrop MD 10/14/2017 incisional or ventral hernia; incarcerated or strangulated 13865 Implantation of mesh or Juan Waldrop MD 10/14/2017 other prosthesis for open incisional or ventral hernia repair or mesh for closure of debridement for necrotizing soft tissue infection (List separately in addition to code for the incisional or ventral hernia repair) 76949 Anesthesia for hernia Juan Waldrop MD 10/14/2017 repairs in upper abdomen; lumbar and ventral (incisional) hernias and/or wound dehiscence NOTE: The code number assigned matches the documented diagnosis and / or procedure in the patient's chart. However, the narrative phrase printed from the coding software may appear abbreviated, or result in slightly different terminology. Coded By: Yancy Skinner Date Saved: 10/17/2017 04:26 pm [facility] Main OR Intraoperative Recor don 10-17-2017 Main OR Intraoperative Record IntraOp Document Type FT Summary Primary Physician: Juan Waldrop MD Finalized Date/Time: 10/17/17 13:38:27 Pt. Name: NURIS JOLLY/Sex: 1985 Female Med Rec #: [id number] Physician: Juan Waldrop MD Financial #: [id number] Pt. Type: A Room/Bed: [facility] Admit/Disch: 10/14/17 09:21:00 - 10/14/17 16:00:00 Institution: Case Times FT Entry 1 Patient Times In Room 10/14/17 11:39:00 Out Room 10/14/17 12:57:00 Procedure Times Start 10/14/17 12:00:00 Stop 10/14/17 12:53:00 Anesthesia Times Start 10/14/17 11:39:00 Stop 10/14/17 12:57:00 Last Modified By: Ryanne Jackson CST 10/14/17 13:01:25 General Comments: 10/17/2017 Chart opened to review and send charges Jessica supervisor sample preparation Case Attendance FT Entry 1 Entry 2 Entry 3 Case Attendee Fabiola Cooper MD, Juan Jenkins CST/, Flavia Role Performed Anesthesiologist Surgeon - Primary METAL SHEET ROLLER OPERATOR/SA Motel Manager Time In 10/14/17 11:55:00 10/14/17 11:52:00 10/14/17 11:39:00 Time Out 10/14/17 12:57:00 10/14/17 12:55:00 10/14/17 12:57:00 Procedure INCISIONAL HERNIA INCISIONAL HERNIA INCISIONAL HERNIA REPAIR(.) REPAIR(.) REPAIR(.) Comments Dr. Juarez supervising Amanda Torres MS 4 LUNCH [id number] scrubbed for case Last Modified By: Rich RN, Leidy 10/14/17 Rich RN, Leidy 10/14/17 Rich RN, Leidy 10/14/17 13:01:34 13:01:34 13:01:34 Entry 4 Entry 5 Entry 6 Case Attendee Rich JIM, Leidy Boston RN, Marce Mendoza CST, Shade Melendez Role Performed Locomotive Crane Operator Helper - Primary Locomotive Crane Operator Helper - Relief Scrub - Primary Time In 10/14/17 11:39:00 10/14/17 11:39:00 10/14/17 11:39:00 Time Out 10/14/17 12:57:00 10/14/17 12:30:00 10/14/17 12:57:00 Procedure INCISIONAL HERNIA INCISIONAL HERNIA INCISIONAL HERNIA REPAIR(.) REPAIR(.) REPAIR(.) Comments out for lunch [id number] LUNCH [id number] Last Modified By: Rich RN, Leidy 10/14/17 [...] [place] JARA, Juan Chin, Given Participants Gregory METAL SHEET ROLLER OPERATOR/SA, Darvin Alejandro RN, Kelly Claire METAL SHEET ROLLER OPERATOR, Shade Melendez, Bladimir CAA, Fabiola José, Larry Rivas DO, Carlos [...] and tissue Entry 1 Skin Integrity Intact, Natural Steps, Warm, and Skin Abnormality No Dry Outcomes [...] Yes By Carlos Juarez Jr., DO, Timmons METAL SHEET ROLLER OPERATOR/SA, Darvin Alejandro RN, Marce Melendez Outcomes Met? [...] RN Patient Status Stable Skin. Condition Intact, Natural Steps, Warm, and Dry Airway Maintenance Oxygen in [...] Items DRESSING GAUZE 4 X 4 10'S [[id number]][F] Site and Details abdomen: mastisol, Outcomes Met? [...] safely administered during the perioperative period For Mireles-Archer please see scanned medication reconcilliation form for medications used at the field during the procedure. Implant Log FT Pre-Care Text: Records devices implanted during the operative or invasive procedure Entry 1 Implant/Explant Implant Implant Identification Description [employer] Lot Number [id number] [place] W/STRAP [[id number]][F] Top Precipitator Operator FT-BARD/DAVOL Catalog ?# [id number] [F] Size 6.4CM Expiration Date 09/08/19 Usage [...] BLANKET MISTRAL AIR Quantity 1 Aid TORSO [[id number]][F] Fluid/[place] Unit Mistral warming system Setting high/43 degrees Body Site Upper anterior torso Last Modified By: Leidy Villanueva RN 10/14/17 11:38:51 Case Comments Finalized By: Ryanne Jackson CST Document Signatures Signed By: Ryanne Jackson CST 10/17/17 13:38 Normal [facility] Operative Reporton Operative Report Date of Surgery: 10/14/2017SURGEON: Juan [...] The fascia was then closed transversely with [id number] #1 Prolene sutures incorporating the underlying mesh [...] in stable condition.Juan Waldrop MD, FACSglsDictated: 10/14/2017 #[id number]: 10/16/2017 #[id number]: Juan Waldrop MD, FACS [facility] Comment on above: Result Comment: [...] Current medications: (Selected) Inpatient MedicationsOrderedLactated Ringers IV Siani 1000 mL 1,000 mL: 1,000 mL, IV, 150 mL/hr, Routine, Start date 10/14/17 9:30:00 EST, 6.7 hour(s), Total volume (mL): 1,000Documented MedicationsDocumentedRemeron 15 mg Tab: .25 tabe, Oral, Once a day (at bedtime), Insomnia, Medications (1) ActiveScheduled: (0)Continuous: (1)Lactated Ringers 1,000 mL 1,000 mL, IV, 150 mL/hrPRN: (0) Problem list: All ProblemsArthropathies / SNOMED CT 1106667604 / Confirmedarthritis of the backAsthma / SNOMED CT 692752585 / ConfirmedOvarian cyst / SNOMED CT 586982669 / ConfirmedEndometriosis / SNOMED CT 367184008 / ConfirmedPanic attack / SNOMED CT 515847283 / ConfirmedScoliosis / SNOMED CT 322446108 / Confirmed, Active Problems (6)Arthropathies Asthma Endometriosis Ovarian cyst Panic attack Scoliosis Histories Past Medical History: No active or resolved past medical history items have been selected or recorded. Family History: No family history items have been selected or recorded. Procedure history: tubal ligation on 05/02/2015 at 30 Years.Open reversal of tubal ligation ([id number]) on 07/11/2009 at 24 Years.Breast augmentation ([id number]) on 05/02/2008 at 23 Years.Appendectomy ([id number]) on 10/17/2007 at 22 Years.tubal ligation on 09/08/2007 at 22 Years.LEEP procedure of cervix ([id number]) on 01/04/2005 at 19 Years.Repair of umbilical hernia ([id number]).Caesarean section ().Caesarean section ().Caesarean section ().Caesarean section ().Caesarean section ().Anaesthesia for radical surgery on accessory sinuses ([id number]). Social History Social & Psychosocial HabitsNo Data [...] Results review: No qualifying data available. Plan [place] Society of Anesthesiologists (ASA) physical status classification: Class II. Anesthetic Preoperative Plan Anesthesia: General. . Anesthetic plan, risks, benefits, and alternatives discussed with the patient and/or family. Pt. and/or family present and agree to proceed as planned.. Normal [facility] Inpatient Patient Summaryon 10-14-2017 In[facility] InstructionsPERSON INFORMATION Name: NURIS JOLLY PHYSICIANS Admitting Physician: Juan Waldrop MDAttending Physician: Juan Waldrop MD PCP: NONE, XXXXDischarge Diagnosis: Incisional hernia Comment: PATIENT EDUCATION INFORMATIONInstructions:[place] - Post Op Instructions (CUSTOM)Medication Leaflets:Follow up:With: Address: When: Juan Waldrop [address], [address] [place] [address] Business (1) Within 7 to 10 days Comments: Call for any problems. Call for followup appointment MEDICATION LISTFill New Prescriptions:acetaminophen-oxyc odone (Percocet 325 mg-5 mg Tab) 1 tab(s) By Mouth every 4 hours 7 day(s) as needed for as needed for pain Take one tab by mouth every four hours as needed for painComment: [facility] Main OR PACU I Recordon Main OR PACU I Record PACU Phase I Document Type FT Summary Primary Physician: Juan Waldrop MD Finalized Date/Time: 10/14/17 14:36:49 Pt. Name: NURIS JOLLY/Sex: 1985 Female Med Rec #: [id number] Physician: Juan Waldrop MD Financial #: [id number] Pt. Type: A Room/Bed: 10/13 Admit/Disch: 10/14/17 09:21:46 - Institution: Case Times [...] By: Hiwot Silver RN 10/14/17 14:36 Normal [facility] Main OR PACU II Recordon Main OR PACU II Record PACU Phase II Document Type FT Summary Primary Physician: Juan Waldrop MD Finalized Date/Time: 10/14/17 19:41:49 Pt. Name: NURIS JOLLY/Sex: 1985 Female Med Rec #: [id number] Physician: Juan Waldrop MD Financial #: [id number] Pt. Type: A Room/Bed: Admit/Disch: 10/14/17 09:21:46 [...] II Outcomes Met? Yes Last Modified By: rEa Ingram RN 10/14/17 19:41:46 Post-Care Text: The [...] By: Era Ingram RN 10/14/17 19:41 Normal [facility] Main OR Preoperative Recordo n 10-14-2017 Main OR Preoperative Record PreOp Document Type FT Summary Primary Physician: Juan Waldrop MD Finalized Date/Time: 10/14/17 12:04:04 Pt. Name: MARYREBEKANURISO.B./Sex: 1985 Female Med Rec #: [id number] Physician: Juan Waldrop MD Financial #: [id number] Pt. Type: A Room/Bed: [place] [address] Admit/Disch: 10/14/17 09:21:46 - Institution: Case Times [...] By: Leidy Villanueva RN 10/14/17 12:04 Normal [facility] Patient Education - Texton 0 10-14-2017 Patient Education - Text Patient Education Materials Follows:[facility] MD [place], FACSPOST OPERATIVE INSTRUCTIONSRegardless of how big or [...] be reached by calling:Hospital: or (ask the commutator operator for your surgeon)Office: Reviewed: 12-18Revised: 04-23 [facility] Progress Note-Physicianon Progress Note-Physician Patient: NURIS JOLLY Age: 32 years Sex: Female : 1985 Associated Diagnoses: None Author: Juan Waldrop MD Postoperative Information Date/ Time: 10/14/17 13:03:00 Preoperative Diagnosis: Incisional hernia (PYN24-NI K43.2, Discharge, Medical). Postoperative Diagnosis: same. Performed by: Juan Waldrop MD. Specimens Removed: hernia contents. Estimated Blood Loss: 2 ml. Complications: None. Incisional hernia repair with mesh Normal [facility] Comment on above: Result Comment: Electronically Signed By : Juan Waldrop MD\.br\Date and Time Signed: 10/14/17 13:05 EST Progress Note-Physician Patient: NURIS JOLLY Age: 32 years Sex: Female : 1985 Associated Diagnoses: None Author: Juan Waldrop MD Basic Information No change in H&P Normal [facility] Comment on above: Result Comment: Electronically Signed By : Juan Waldrop MD\.br\Date and Time Signed: 10/14/17 11:28 EST Coding Summary.on 10-12-2017 Coding Summary. CODING DATE: [address] [facility] STATUS: Home (Routine DC) PAYOR: Capac ADMIT DX: REASON FOR VISIT DX: Z01.818 [...] Curtis Date Saved: 10/12/2017 11:46 am Normal [facility] CBC w/Indiceson 10-11-2017 Erythrocyte distribution width Auto Ratio (RBC) 13.3 % Normal 10.9-14.2 [facility] Comment on above: Performed By: #### [id number] ####[facility] [address] [place] [address] Erythrocytes (RBC) 4.6 E12/L Normal 4.3-5.9 [facility] Comment on above: Performed By: #### [id number] ####[facility] [address] [place] [address] Hematocrit (HCT) 41.6 % Normal 34.0-46.0 [facility] Comment on above: Performed By: #### [id number] ####[facility] [address] [place] [address] Hemoglobin mass conc (Bld) 14.7 g/dL Normal 12.0-16.0 [facility] Comment on above: Performed By: #### [id number] ####[facility] [address] [place] [address] MCH 32.0 pg Normal 27.0-34.0 [facility] Comment on above: Performed By: #### [id number] ####[facility] [address] [place] [address] MCHC mass conc (RBC) 35.4 g/dL Normal 31.4-39.3 [facility] Comment on above: Performed By: #### [id number] ####[address] [address] MCV 90.3 fL Normal 80.0-100.0 [facility] Comment on above: Performed By: #### [id number] ####[facility] [address] [place] [address] Platelet mean volume (PMV) 9.0 fL Normal 6.4-10.8 [facility] Comment on above: Performed By: #### [id number] ####[facility] [address] [place] [address] Platelets 198.0 E9/L Normal 150.0-500. 0 [facility] Comment on above: Performed By: #### [id number] ####[facility] [address] [place] [address] WBC (Leukocytes) 7.3 E9/L Normal 4.0-11.0 [facility] Comment on above: Performed By: #### [id number] ####[id number] [place] [address] Vital Signs Date Time Vital Sign Value Performing Clinician Facility 09-25-2024 08:57-0500 Body height 154.9 cm America SHIPLEY Work Phone: [facility] 09-25-2024 08:57-0500 Body mass index (BMI) [Ratio] 21.73 kg/m2 America Summers PA Work Phone: [facility] 09-25-2024 08:57-0500 Body weight 52.16 kg America Summers PA Work Phone: [facility] 09-25-2024 08:57-0500 Diastolic blood pressure 70 mm[Hg] America Summers PA Work Phone: [facility] 09-25-2024 08:57-0500 Systolic blood pressure 108 mm[Hg] America Summers PA Work Phone: [facility] 10-19-2023 13:40-0500 Blood Pressure Location Dustin HERNÁNDEZL [facility] 10-19-2023 13:40-0500 Diastolic blood pressure 74 mm[Hg] Dustin NILL [facility] 10-19-2023 13:40-0500 Respiratory rate 16 /min Dustin NILL [facility] 10-19-2023 13:40-0500 Systolic blood pressure 112 mm[Hg] Dustin NILL [facility] 01-04-2023 17:00-0400 Body height 155.57 cm Dawood Bowenpoornima Other [facility] Other 01-04-2023 17:00-0400 Body mass index (BMI) [Ratio] 21.66 kg/m2 Dawood Bowenpoornima Other [facility] Other 01-04-2023 17:00-0400 Body temperature 98.1 [degF] Dawood Diaz Other [facility] Other 01-04-2023 17:00-0400 Body weight 52.44 kg Dawood Get[facility] Other [facility] Other 01-04-2023 17:00-0400 Diastolic blood pressure 72 mm[Hg] Dawood Diaz Other [facility] Other 01-04-2023 17:00-0400 Respiratory rate 18 /min Dawood Diaz Other [facility] Other 01-04-2023 17:00-0400 SaO2% (BldA) [Mass fraction] 98 % Dawood Diaz Other [facility] Other 01-04-2023 17:00-0400 Systolic blood pressure 110 mm[Hg] Dawood Diaz Other [facility] Other 09-11-2022 13:30-0500 Body height 155.57 cm Doreen Ortizault Other [facility] Other 09-11-2022 13:30-0500 Body mass index (BMI) [Ratio] 21.44 kg/m2 Doreen Ortizault Other [facility] Other 09-11-2022 13:30-0500 Body temperature 99.2 [degF] Doreen Ade Other [facility] Other 09-11-2022 13:30-0500 Body weight 51.89 kg Doreen Ortizault Other [facility] Other 09-11-2022 13:30-0500 Diastolic blood pressure 69 mm[Hg] Doreen Ade Other [facility] Other 09-11-2022 13:30-0500 Respiratory rate 18 /min Doreen Ade Other [facility] Other 09-11-2022 13:30-0500 SaO2% (BldA) [Mass fraction] 98 % Doreen Booker Other [facility] Other 09-11-2022 13:30-0500 Systolic blood pressure 113 mm[Hg] Doreen Booker Other [facility] Other Encounters Encounter Date Encounter Type Care Provider Facility Start: 11-12-2024 ambulatory RYANNE Jeronimo SAIMA Denisha ty:[facility] Start: 10-26-2024 End: 10-26-2024 ambulatory JESSICA QUINTANA Facility:[facility] Start: 10-26-2024 End: 10-26-2024 Patient encounter procedure Jessica Quintana MD Work Phone: [facility] Comment on above: Elevated serum creat inine (Primary Dx) Start: 10-26-2024 End: 10-26-2024 Telemedicine consultation with patient Jessica Quintana MD Work Phone: [facility] Start: 10-24-2024 End: 10-24-2024 Clinisync Result Encounter Alex Selvin DO Work Phone: [facility] Unsolicited Start: 10-24-2024 End: 10-24-2024 Clinisync Result Encounter Alex Selvin DO Work Phone: [facility] Unsolicited Start: 09-28-2024 ambulatory RYANNE SAIMA Facility :[facility] Start: 09-25-2024 End: 09-25-2024 Bamboo flowsheet America SHIPLEY Work Phone: [facility] Start: 09-25-2024 End: 09-25-2024 Bamboo flowsheet America SHIPLEY Work Phone: [facility] Start: 09-25-2024 End: 09-25-2024 ambulatory AMERICA SUMMERS Not Available Start: 09-25-2024 End: 09-25-2024 Office outpatient visit 15 minutes America SHIPLEY Work Phone: [facility] Comment on above: Vaginal bleeding; Fibroid Start: 10-28-2023 End: 10-28-2023 ambulatory Dustin PALMA [facility] Start: 10-28-2023 End: 10-28-2023 Patient encounter procedure Dustin HERNÁNDEZL [facility] Start: 10-19-2023 End: 10-19-2023 Patient encounter procedure Dustin Webb NILL General Surgery Nill/Said [place] Start: 09-28-2023 End: 09-28-2023 ambulatory Yessica Rojas Facility:[facility] Start: 09-28-2023 End: 09-28-2023 ambulatory INDUSTRIAL EQUIPMENT MECHANIC-C Yessica Rojas Work Phone: [facility] Work Phone: Start: 09-28-2023 End: 09-28-2023 Departed Referred INDUSTRIAL EQUIPMENT MECHANIC-C Yessica Rojas Work Phone: [facility] Start: 01-07-2023 End: 01-07-2023 ambulatory YESSICA ROJAS Facility:[facility] Start: 01-04-2023 End: 01-04-2023 ambulatory Dawood Diaz Other [facility] Other Start: 01-04-2023 Office outpatient ne w 30 minutes Dawood Pappass [facility] Start: 09-11-2022 End: 09-11-2022 ambulatory Doreen Booker Other [facility] Other Start: 09-11-2022 Office outpatient ne w 20 minutes Doreen Booker [facility] Start: 02-13-2022 End: 02-14-2022 ambulatory YESSICA ROJAS Facility:[facility] Start: 02-01-2022 End: 02-02-2022 ambulatory YESSICA ROJAS Facility:[facility] Start: 01-25-2022 End: 01-26-[address] JAGDEEP HAYS . Facility: Start: 10-18-2017 End: 10-19-2017 Ambulatory Juan Waldrop [place] Start: 10-14-2017 End: 10-14-2017 Ambulatory Juan Waldrop [facility] Start: 10-11-2017 End: 10-12-2017 Ambulatory Juan Waldrop [facility] Procedures Date Procedure Procedure Detail Performing Clinician Start: 10-24-2024 ALL CBC WITH AUTO DIFF Alex Montalvo DO Work Phone: Appendectomy Dustin NILL Augmentation mammoplasty Delroy hael NILL section Dustin NIL L Excision of cyst of ovary Mi chael NILL Laparoscopy Dustin NILL Ligation of fallopian tube M ichbhumi NILL Loop electrosurgical excision procedure of cervix Dustin NILL Nasal septoplasty Dustin NI LL Open reversal of fem wesley sterilization Dustin NILL Reconstruction of nose Panfilo rios NILL Repair of recurrent umbilical hernia Dustin NILL Repair of umbilical hernia M mis NILL Tonsillectomy and adenoidectomy Dustin NILL Plan of Treatment Date Care Activity Detail Author Start: 05-13-2024 Covid-19 Vaccine ( season) Covid-19 Vaccine ( season) [facility] Start: 05-13-2024 Influenza vaccination Influenza Vacc ine (#1) [facility] Start: 2024 Screening for malign ant neoplasm of breast [facility] Start: 2014 Screening for malign ant neoplasm of cervix [facility] Start: 2005 Screening for malign ant neoplasm of cervix [facility] Start: 2003 Hepatitis B Vaccine (1 of 3 - 19+ 3-dose series) Hepatitis B Vaccine (1 of 3 - 19+ 3-dose series) [facility] Start: 2002 Anxiety Screening Anxiety Screening [facility] Start: 2002 Depression Screening Depression Scre aureliaing [facility] Start: 2002 Hepatitis C screening Hepatitis C Sc reening [facility] Start: 2002 HIV screening HIV Screening [facility] Start: 05-08-1997 Urine microalbumin profile DTa P,Tdap,Td Vaccine (6 - Tdap) [facility] Immunizations Immunization Date Immunization Notes Care Provider Fa cili 06-21-2022 influenza virus vaccine, unspecified formulation America SHIPLEY Work Phone: [facility] 11-25-2021 SARS-CoV-2 mRNA (mvvlqedborz-enlv-lmj addison) vaccine Dustin PALMA General Surgery [place] 06-05-2021 SARS-CoV-2 (COVID-19 ) mRNA BNT-162b2 vax Dustin MINERVA [facility] 05-11-2021 SARS-CoV-2 (COVID-19 ) mRNA BNT-162b2 vax Dustin HERNÁNDEZL [facility] [place] NEGATED: Highlighted row has not occurred!10-19-2023 influenza virus vaccine, unspecified formulation Dustin PALMA General Surgery [place] Payers Date Payer Category Payer Self-pay [id number] 2019 Blue Cross Blue Shield [id number] 2017 Unknown 1985 Unknown [id number] 1985 Unknown [id number] 1985 Unknown [id number] 1985 Unknown [id number] 1985 Unknown [id number] 1985 Unknown [id number] 1985 Unknown [id number] 1985 Unknown [id number] 1959 Blue Cross Blue Shield [id number] 1959 Medicaid [id number] Medicaid [place] Advantage [id number] Unknown [id number] Social History Date Type Detail Facility Unknown if ever smoked [facility] Other Start: 10-26-2024 Sex Assigned At [facility] Start: 09-26-2018 Tobacco smoking status NHIS Smoker (finding) [facility] Start: 1985 Sex Assigned At Female [facility] Start: 10-19-2023 Tobacco smoking status Ex-smoker (finding) [facility] Tobacco smoking status Never Gener al [facility] [place] Tobacco smoking stat us KSIS Tobacco smoking consumption unknown [facility] Start: 07-27-2024 Gender identity Identifies as female gender (finding) [facility] Start: 07-27-2024 Sexual orientation Heterosexual (finding) [facility] Start: 10-26-2024 History of Social function [facility] Functional Status Date Assessment Result Facility 10-19-2023 Functional Status N/A [facility] [place] Clinical Notes 09-11-2022 to 10-26-2024 Jessica Quintana MD - 10/26/2024 11:30 AM QUINTEN Carlin - 09/25/2024 8:30 AM ESTRadiology Note Date & Type Note Facility 10-26-2024 Note HNO ID: [id number] Author: JESSICA QUINTANA MD Service: ? Author Type: Physician Type: Progress Notes Filed: 10/26/2024 12:02 Note Text: VIRTUAL VISIT PROGRESS NOTE This is a virtual visit using [employer] Video Visit. It required patient-provider interaction for the medical decision making as documented below. I have communicated my name and active licensure. The patient's identity and physical location were verified at the time of this visit. Either the patient or their legal food service representative has been informed of the risks and benefits of -- and alternatives to -- treatment through a remote evaluation and consents to proceed with the evaluation remotely. Nuris Casarez is a 39 year old female seen for elevated serum creatinine. Last labs 10/24/24 Cr 1.1 GFR 54 No hypertension or diabetes BP low at baseline Has had contrast imaging Hydration - reports low in general Planned diagnostic lap - history of fibroids Reports having US kidney - results read to me by patient, I do not have access to records 9 cm right kidney - small cyst on inferior aspect 9.3 cm left kidney - no cyst No suspicious mass No hydronephrosis Reports having urine analysis - reports microscopic hematuria, attributed to fibroids/ vaginal bleeding Family history of kidney disease - father in 60s - stage 3a - Medications No NSAID use No supplements Occassional sumatriptan HISTORY REVIEWED (electronic chart updated): Past Medical History: Diagnosis Date Anxiety Arthritis Asthma ([facility]) Endometriosis Kidney failure PTSD (post-traumatic stress disorder) ([facility]) Scoliosis SURGICAL HISTORY Past Surgical History: Procedure Laterality Date APPENDECTOMY CERVICAL BIOPSY W/ LOOP ELECTRODE EXCISION 01/04/2005 SECTION, LOW TRANSVERSE X5 LAPAROSCOPY DIAGNOSTIC / BIOPSY / ASPIRATION / LYSIS NOSE SURGERY SINUS SURGERY TONSILECTOMY, ADENOIDECTOMY, BILATERAL MYRINGOTOMY AND TUBES FAMILY HISTORY Family History Problem Relation Name Age of Onset Breast cancer Mother Lung cancer Mother Kidney failure Father Hyperlipidemia Father Current Outpatient Medications Medication Instructions acetaminophen (TYLENOL) 500 mg, Oral, Every 4 hours PRN medroxyPROGESTERone (DEPO-PROVERA) 150 mg, Intramuscular, Every 3 months ALLERGIES Allergies Allergen Reactions Compazine [Prochlorperazine] Anxiety REVIEW OF SYSTEMS: GENERAL: feeling well without fatigue, no recent change in weight HEENT: denies PEREZ, change in hearing or vision, no other ENT complaints NECK: denies swelling or pain in neck RESPIRATORY: no cough, no wheezing or shortness of breath CARDIOVASCULAR: no chest pain, no palpitations GI: normal appetite, tolerating PO well, BMs normal, and no abdominal pain : urination is normal 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: 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 and vaginal bleeding MUSCULOSKELETAL: denies any painful or swollen joints, no muscle aches SKIN: no rash PSYCH: denies depressed or anxious mood, sleep is normal HEMATOLOGY/LYMPHOLOGY: negative for prolonged bleeding, no swollen lymph nodes ENDOCRINE: denies cold/heat intolerance, denies polyuria or polydipsia, no goiter NEURO: no numbness or paresthesias and no weakness of the extremities PHYSICAL EXAMINATION: VIDEO EXAM: (if completed, performed via video enabled technology) GENERAL: alert and appropriate, in no distress, well-hydrated, well nourished, and happy, smiling, interactive HEAD: normocephalic, no abnormality or lesion noted RESPIRATORY: breathing non-labored CHEST: equal chest rise with normal respiratory effort ASSESSMENT: Encounter Diagnosis ICD-10-CM 1. Elevated serum creatinine R79.89 PLAN: Elevated serum creatinine with Cr 1.1 and GFR 54, reports father with CKD stage 3a. UA reportedly shows microscopic hematuria but also has history of fibroids and vaginal bleeding which is currently being evaluated (planned diagnostic laparoscopy and then consideration of hysterectomy). No history of hypertension or diabetes. No NSAID use. Has had prior contrast imaging Will plan to reassess, along with cystatin C - advised increased hydration and non-fasting labs Check additional serologies, check UA and protein/Cr ratio Not ordering additional imaging at this point - although I was unable to access results, she read out results to me that do not indicate any obstruction Will follow up on results and communicate with patient She would like lab requisition sent to [facility] which my office will coordinate Jessica Quintana MD [facility] 10-26-2024 History of Present illness Narrative VIRTUAL VISIT PROGRESS NOTE This is a virtual visit using [employer] Video Visit. It required patient-provider interaction for the medical decision making as documented below. I have communicated my name and active licensure. The patient's identity and physical location were verified at the time of this visit. Either the patient or their legal food service representative has been informed of the risks and benefits of -- and alternatives to -- treatment through a remote evaluation and consents to proceed with the evaluation remotely. Nuris Casarez is a 39 year old female seen for elevated serum creatinine. Last labs 10/24/24 Cr 1.1 GFR 54 No hypertension or diabetes BP low at baseline Has had contrast imaging Hydration - reports low in general Planned diagnostic lap - history of fibroids Reports having US kidney - results read to me by patient, I do not have access to records 9 cm right kidney - small cyst on inferior aspect 9.3 cm left kidney - no cyst No suspicious mass No hydronephrosis Reports having urine analysis - reports microscopic hematuria, attributed to fibroids/ vaginal bleeding Family history of kidney disease - father in 60s - stage 3a - Medications No NSAID use No supplements Occassional sumatriptan HISTORY REVIEWED (electronic chart updated): Past Medical History: Diagnosis Date Anxiety Arthritis Asthma ([facility]) Endometriosis Kidney failure PTSD (post-traumatic stress disorder) ([facility]) Scoliosis SURGICAL HISTORY Past Surgical History: Procedure Laterality Date APPENDECTOMY CERVICAL BIOPSY W/ LOOP ELECTRODE EXCISION 01/04/2005 SECTION, LOW TRANSVERSE X5 LAPAROSCOPY DIAGNOSTIC / BIOPSY / ASPIRATION / LYSIS NOSE SURGERY SINUS SURGERY TONSILECTOMY, ADENOIDECTOMY, BILATERAL MYRINGOTOMY AND TUBES FAMILY HISTORY Family History Problem Relation Name Age of Onset Breast cancer Mother Lung cancer Mother Kidney failure Father Hyperlipidemia Father Current Outpatient Medications Medication Instructions acetaminophen (TYLENOL) 500 mg, Oral, Every 4 hours PRN medroxyPROGESTERone (DEPO-PROVERA) 150 mg, Intramuscular, Every 3 months ALLERGIES Allergies Allergen Reactions Compazine [Prochlorperazine] Anxiety REVIEW OF SYSTEMS: GENERAL: feeling well without fatigue, no recent change in weight HEENT: denies PEREZ, change in hearing or vision, no other ENT complaints NECK: denies swelling or pain in neck RESPIRATORY: no cough, no wheezing or shortness of breath CARDIOVASCULAR: no chest pain, no palpitations GI: normal appetite, tolerating PO well, BMs normal, and no abdominal pain : urination is normal 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: fibroids and vaginal bleeding MUSCULOSKELETAL: denies any painful or swollen joints, no muscle aches SKIN: no rash PSYCH: denies depressed or anxious mood, sleep is normal HEMATOLOGY/LYMPHOLOGY: negative for prolonged bleeding, no swollen lymph nodes ENDOCRINE: denies cold/heat intolerance, denies polyuria or polydipsia, no goiter NEURO: no numbness or paresthesias and no weakness of the extremities PHYSICAL EXAMINATION: VIDEO EXAM: (if completed, performed via video enabled technology) GENERAL: alert and appropriate, in no distress, well-hydrated, well nourished, and happy, smiling, interactive HEAD: normocephalic, no abnormality or lesion noted RESPIRATORY: breathing non-labored CHEST: equal chest rise with normal respiratory effort ASSESSMENT: Encounter Diagnosis ICD-10-CM 1. Elevated serum creatinine R79.89 PLAN: Elevated serum creatinine with Cr 1.1 and GFR 54, reports father with CKD stage 3a. UA reportedly shows microscopic hematuria but also has history of fibroids and vaginal bleeding which is currently being evaluated (planned diagnostic laparoscopy and then consideration of hysterectomy). No history of hypertension or diabetes. No NSAID use. Has had prior contrast imaging Will plan to reassess, along with cystatin C - advised increased hydration and non-fasting labs Check additional serologies, check UA and protein/Cr ratio Not ordering additional imaging at this point - although I was unable to access results, she read out results to me that do not indicate any obstruction Will follow up on results and communicate with patient She would like lab requisition sent to [facility] which my office will coordinate Jessica Quintana MD documented in this encounter [facility] 09-25-2024 History of Present illness Narrative Reason [...] Medical History: Diagnosis Date Anxiety Arthritis Asthma ([facility]) Endometriosis Kidney failure PTSD (post-traumatic stress disorder) ([facility]) Scoliosis HISTORY PAST MEDICAL HISTORY SOCIAL HISTORY Past Medical History: Diagnosis Date Anxiety Arthritis Asthma ([facility]) Endometriosis Kidney failure PTSD (post-traumatic stress disorder) ([facility]) Scoliosis Social History Tobacco Use Smoking status: [...] of: QUINTEN Albert documented in this encounter [facility] 10-19-2023 Evaluation + Plan note Future Scheduled TestsCT Abdomen/Pelvis w/ Contrast 10/19/23MRI Breast w/o and w/ Contrast, Bilat 10/19/23 General Surgery [place] 01-04-2023 Evaluation note Encounter Date Diagnosis Assessment [...] Lab as above prior to next visit [employer] [facility] [id number] Evaluation note* Encounter Date Diagnosis Assessment Notes [...] care provider if no improvement of symptoms [employer] [facility] Evaluation noteNo assessment information available [facility] Work Phone: Evaluation note* Diagnosis Vaginal bleeding Other specified noninflammatory disorder of vagina Fibroid Leiomyoma of uterus, unspecified [facility] Diagnosis Elevated serum creatinine- Primary Other nonspecific findings on examination of blood documented in this encounter [facility] general Narrative - Reported* Type Description Date [...] History see above Hospitalization History placental abruption [facility] [facility] general Narrative - Reported* Type Description Date [...] History see above Hospitalization History placental abruption [facility] [facility] Hospital course Narrative No data available for this section General Surgery [place] [facility] Discharge instructions No data available for this section General Surgery [place] note No data available for this section General Surgery [place] Summary Purpose Family History No Family History Records FoundNo Family History Records Found No data available for this section No Family History Records Found No data available for this section No Family History Records FoundNo Family History Records FoundNo Family History Records Found Advance Directives No Advanced Directives Records Found Advance Directive Response Recorded Date/ Time Advance Directives No January 23 8 8:10am Additional Source Comments INFORMATION SOURCE (unrecogn ized section and content) DATE CREATED AUTHOR 03/06/2018 [facility] DATE CREATED AUTHOR AUTHOR'S ORGANIZ ATION 01/18/2023 [facility] DATE CREATED AUTHOR AUTHOR'S ORGANIZ ATION 10/21/[address] [facility] DATE CREATED AUTHOR AUTHOR'S ORGANIZ ATION 09/28/2024 [facility] DATE CREATED AUTHOR AUTHOR'S ORGANIZ ATION 10/26/2024 [facility] DATE CREATED AUTHOR AUTHOR'S ORGANIZ ATION 10/28/2024 [facility] REASON FOR VISIT (unrecogniz ed section and content) Reason Comments Fibroids vaginal bleeding Reason Comments Consult Care Teams (unrecognized sec tion and content) Team Status: Inactive Member Role Status Dates Yessica Rojas NP-C Attending Provider Active Start: September 28, 2023 End: September 28, 2023 Goals (unrecognized section and content) Goals may be documented in a n alternate section Source Comments (unrecognize d section and content) In the event this informatio n is protected by the Federal Confidentiality of Alcohol and Drug Abuse Patient Records regulations: The Federal rules restrict any use of the information to criminally investigate or prosecute any alcohol or drug abuse patient.[facility] FOR RECORDS PERTAINING TO PATIENTS WHO ARE [...] BE BASED ON THE PRIMARY CLINICAL RECORDS. [facility] [employer] [facility]. provides no warranty or guarantee of the accuracy or completeness of information in this document.
[2024-11-09 07:45] LABS: Basophils Absolute Auto 0.1 10^3/uL (0.0-0.1); Basophils Percent Auto 0.8 % (0.2-2.0); Eosinophils Absolute Auto 0.1 10^3/uL (0.0-0.7); Eosinophils Percent Auto 1.5 % (0.9-7.0); Hematocrit 44.5 % (36.0-48.0); Hemoglobin 15.3 g/dL (12.0-16.0); Immature Granulocytes Abs Auto 0.01 10^3/uL (0.00-0.03); Immature Granulocytes Pct Auto 0.2 % (0.0-0.5); Lymphocytes Absolute Auto 1.6 10^3/uL (1.2-3.8); Lymphocytes Percent Auto 27.3 % (20.5-60.0); Mean Corpuscular HGB Conc 34.4 g/dL (29.9-35.2); Mean Corpuscular Hemoglobin 31.7 pg (26.7-34.0); Mean Corpuscular Volume 92.1 fL (81.0-99.0); Mean Platelet Volume 9.4 fL (9.5-13.5); Monocytes Absolute Auto 0.6 10^3/uL (0.3-0.8); Monocytes Percent Auto 9.2 % (1.7-12.0); Neutrophils Absolute Auto 3.7 10^3/uL (1.4-6.5); Platelet Count 249 10^3/uL (150-450); Red Blood Count 4.83 10^6/uL (4.20-5.40); Red Cell Distribution Width 12.6 % (11.0-15.0)
[2024-11-09 08:07] LABS: HCG Quantitative <1 mIU/mL
[2024-11-09] MEDS: LACTATED RINGER'S SOLUTION 1,000 ML 50 ML IV ×2 (08:07→10:26)
--- NOTE | 2024-11-09 10:54 | P.ON_ITS ---
Brief Operative Note Date of procedure: 11/09/24 Pre-op diagnosis general: pelvic pain, aub, dysmenorrhea Post-op diagnosis: other (small uterine fibroid, significant abdominal adhesions, significant bladder adhesions) Procedure: NAME OF PROCEDURE: [diagnostic laparoscopy ] PROCEDURE: The patient was taken back to the Operating Room where she was placed in dorsal lithotomy position after given general anesthesia. The patient was prepped and draped in normal sterile fashion. A sponge stick was placed into the patient's vagina. Attention was turned to the patient's abdomen, where a small umbilical incision was made. The fascia was tented using Doug clamps and the fascia was entered sharply. Confirmation of intraabdominal placement of the 10 mm port was confirmed under direct visualization using a laparoscope. The patient's abdomen was then insufflated using CO2 gas with approximately 4 liters. A second port was placed left laterally, this was done under direct visualization with a 5 mm port. Survey of the patient's abdomen demonstrated normal liver and gallbladder. Survey of the patient's pelvic anatomy demonstrated normal appearing rt and lt ovary and evidence of partial bilateral tubal ligation as well as normal marilyn earing uterus with significant bladder adhesions. No endometrial implants could be noted, no evidence of any pelvic disease was seen, normal appearing pelvic cavity. All instruments were removed from the patient's abdomen. The patient's abdomen was deinsufflated of CO2 gas. The patient tolerated the procedure well. Sponge stick was removed from the patient's vagina. The patient's infraumbilical fascia was closed using #0 Vicryl on a GI needle. The patient's skin was closed laterally and infraumbilically using 4-0 Vicryl. The patient tolerated the procedure well. Sponge, lap and needle counts were correct x 2. The patient was taken to Recovery Room in stable condition. Anesthesia: SAMANTHAA Surgeon: Alex Montalvo [employer] Consultant: Jonelle Means Estimated blood loss (mL): 5 Pathology: none sent Condition: stable Disposition: PACU Urinary Catheter Management Urinary Catheter Management Urethral: Cath placed during this visit: no
[2024-11-09] MEDS: OXYCODONE HCL/ACETAMINOPHEN 5MG/325MG 1 TAB PO (11:32)
[2024-11-09] MEDS: PROMETHAZINE HCL 25 MG TABLET PO (12:26)
--- NOTE | 2024-11-09 12:28 | PC.NURSE ---
Patient called out stating she feels nauseated. Has been sipping apple juice. 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 Montalvo.
--- NOTE | 2024-11-09 12:39 | PC.NURSE ---
has some nausea at this time and oral phenergan was given.
== END 2024-11-09 13:20 | disposition home or self-care (01) ==
PROVIDERS: PCP Nurse Practitioner Family; Visit Provider Obstetrics & Gynecology
PROC: (CPT 840; principal; 2024-11-09 08:40)
DX: N93.9 Abnormal uterine and vaginal bleeding, unspecified (principal); N94.6 Dysmenorrhea, unspecified; D25.9 Leiomyoma of uterus, unspecified; K66.0 Peritoneal adhesions (postprocedural) (postinfection); N32.89 Other specified disorders of bladder; Z98.82 Breast implant status; Z90.49 Acquired absence of other specified parts of digestive tract; Z87.891 Personal history of nicotine dependence; N18.9 Chronic kidney disease, unspecified; J45.909 Unspecified asthma, uncomplicated; G89.29 Other chronic pain; R10.2 Pelvic and perineal pain
CPT/HCPCS: 49320; 36415; 84702; 85025; J1100; J1885; J2250; J2405; J2704; J3010; Q0169